=== PATIENT | female | born 1990 | race Hispanic/Latino ===

== ENCOUNTER 2017-05-19 20:28 | Emergency (ER) | payer SELFPAY ==
[2017-05-19 20:59] LABS: Bilirubin Negative (Negative); Blood, Urine Negative (Negative); Glucose, Urine (Dipstick) Negative (Negative); Ketone, Urine Negative (Negative); Nitrite Negative (Negative); Protein, Urine (Dipstick) Negative (Neg-Trace)
[2017-05-19 21:01] LABS: Bacteria/HPF 1+ HPF (None Seen); Hyaline Casts/LPF 0-3 HYALINE CAST LPF (0-3 Hyaline)
[2017-05-19] MEDS ORDERED: Acetaminophen 325 MG TAB ONE (22:23)
--- NOTE | 2017-05-19 23:04 | ULT ---
PELVIC ULTRASOUND: History: Right sided flank pain for three days. Technique: Multiple longitudinal and transverse images of an intrauterine is obtained usin g a multihertz curvilinear transabdominal transducer. FINDINGS: Real-time, color flow, and M-mode sonography demonstrates the uterus to measure 11.5 x 6.5 x 8.4 cm. Gestational sac and pole are seen within the uterine cavity. [place]-rump length measures 1.6 c m. The gestational sac measures 2.4 cm. This overall gives the fetus an estimated gestational age of 7 weeks 5 days with an estimated date of delivery of 12-31-17. Yolk sac is visualized measuring 5 mm. Cardiac activity is confirmed measuring 185 bpm within the pole. Both ovaries are visualized with good blood flow. Right ovary measures 3.0 x 2.5 x 2.9 cm while the left ovary measures 3.5 x 3.1 x 3.2 cm. IMPRESSION: Viable intrauterine . Estimated gestational age is 7 weeks 5 days with an estimated date of delivery of 12-31-17. POS: [facility]
== END 2017-05-19 23:42 | disposition home or self-care (01) ==
LOC: ERS 20:28
DX: O23.41 Unspecified infection of urinary tract in pregnancy, first trimester (principal); O10.911 Unspecified pre-existing hypertension complicating pregnancy, first trimester; Z3A.08 8 weeks gestation of pregnancy
CPT/HCPCS: 76856; 81003; 81015; 81025; 87480; 87491; 87510; 87591; 87660; 93976

== ENCOUNTER 2017-07-02 12:42 | Emergency (ER) | payer SELFPAY ==
[2017-07-02 13:19] LABS: Bilirubin Negative (Negative); Blood, Urine Negative (Negative); Glucose, Urine (Dipstick) Negative (Negative); Ketone, Urine Negative (Negative); Nitrite Negative (Negative); Protein, Urine (Dipstick) Negative (Neg-Trace)
[2017-07-02 13:22] LABS: Bacteria/HPF 1+ HPF (None Seen); Hyaline Casts/LPF 0-3 HYALINE CAST LPF (0-3 Hyaline); RBC/HPF 0-3 HPF (0-3)
--- NOTE | 2017-07-02 14:17 | ULT ---
Obstetrical ultrasound: INDICATION: Suprapubic tenderness and pain on pelvic examination; a 26-year-old female with dysuria for 2 weeks a nd right flank tenderness and vaginal discharge. COMPARISON: Recent pelvic ultrasound dated 05/19/17. FINDINGS: There is a single live intrauterine gestation in vertex presentation. The placenta is anterior in lo cation. MOHAMUD appears adequate. Cardiac activity is noted at 160 b.p.m. The average gestational age by ultrasound is 14 weeks and 5 days with estimated due date of 12/26/17. IMPRESSION: Single live intrauterine gestation. POS: [facility]
[2017-07-02] MEDS ORDERED: cefTRIAXone\\ROCEPHIN 500 MG VIAL ONE (14:44)
[2017-07-02] MEDS ORDERED: Lidocaine 1% PF 5 ML VIAL ONE (14:44)
--- NOTE | 2017-07-02 14:47 | ULT ---
BILATERAL RENAL ULTRASOUND: HISTORY: UTI, right flank pain. FINDINGS: The right kidney measures 12.8 cm in length and the left kidney measures 12.8 cm in length. No focal mass or hydronephrosis is seen on either side. Cortical echogenicity and thickness is normal on eit her side. The urinary bladder is unremarkable. IMPRESSION: Normal exam. POS: [facility]
== END 2017-07-02 15:13 | disposition home or self-care (01) ==
LOC: ERS 12:42
DX: O23.42 Unspecified infection of urinary tract in pregnancy, second trimester (principal); O16.2 Unspecified maternal hypertension, second trimester; Z3A.14 14 weeks gestation of pregnancy
CPT/HCPCS: 76770; 76815; 81003; 81015; 87086; 87491; 87591; 96372; J0696; J2001

== ENCOUNTER 2017-08-10 17:32 | Emergency (ER) | payer SELFPAY ==
[2017-08-10] MEDS ORDERED: Ondansetron HCl/PF 4 MG/2 ML Vial ONE (18:49)
[2017-08-10 19:15] LABS: #Eosinphils 0.2 thou/uL (0.0-0.7); #Lymphocytes 1.1 thou/uL (1.20-3.40); #Monocytes 0.3 thou/uL (0.11-0.59); #Neutrophils 5.5 thou/uL (1.40-6.50); %Basophils 0.2 % (0.0-1.0); %Eosinophils 2.6 % (0.0-10.0); %Lymphocytes 16.1 % (21.0-51.0); %Monocytes 4.1 % (0.0-10.0); %Neutrophils 77.1 % (42.0-75.0); Mean Corpuscular HGB CONC 35.1 g/dL (32.0-36.0); Mean Corpuscular Hemoglobin 32.1 pg (27.0-31.0); Mean Corpuscular Volume 91.4 fl (81.0-99.0); Mean Platelet Volume 7.2 fL (7.4-10.4); Platelet Count 256 thou/uL (130-400); RBC Distribution Width 12.2 % (11.5-14.5); Red Blood Cell (RBC) Count 4.04 mill/uL (4.20-5.40); White Blood Cell (WBC) Count 7.1 thou/uL (4.8-10.8)
[2017-08-10 19:32] LABS: ALT (SGPT) 73 U/L (8-55); AST (SGOT) 70 U/L (5-34); Albumin 3.9 g/dL (3.5-5.0); Alkaline Phosphatase 62 U/L (40-150); Anion Gap 14 mmol/L (10-20); BUN (Urea Nitrogen) 4 mg/dL (7.0-18.7); Bilirubin, Total 0.6 mg/dL (0.2-1.2); Calc. Creatinine Clearance 0 mL/min (70-130); Calcium 9.2 mg/dL (7.8-10.44); Carbon Dioxide 21 mmol/L (22-29); Chloride 103 mmol/L (98-107); Estimated GFR-MDRD Greater than 90; Glucose 79 mg/dL (70-105); Potassium 3.4 mmol/L (3.5-5.1); Protein, Total 6.9 g/dL (6.0-8.3); Sodium 135 mmol/L (136-145)
[2017-08-10] MEDS ORDERED: Potassium Chloride 20 MEQ TAB ONE (19:47)
[2017-08-10 20:35] LABS: Bilirubin Small (Negative); Clarity CLOUDY (Clear); Glucose, Urine (Dipstick) Negative (Negative); Leukocyte Large (Negative); Nitrite Negative (Negative); Protein, Urine (Dipstick) Trace mg/dL (Neg-Trace); Specific Gravity, Urine 1.021 (1.002-1.036)
[2017-08-10 20:36] LABS: Bacteria/HPF 2+ HPF (None Seen); WBC/HPF 21-50 HPF (0-3)
[2017-08-10 20:37] LABS: Pathc Cast-AUWi Flag 5.01 (0-2.49)
[2017-08-10 20:42] LABS: Blood, Urine Negative (Negative)
[2017-08-10 20:45] LABS: RBC/HPF 0-3 HPF (0-3)
[2017-08-10 20:46] LABS: Hyaline Casts/LPF NONE SEEN LPF (0-3 Hyaline)
== END 2017-08-10 22:09 | disposition home or self-care (01) ==
LOC: ERS 17:32
DX: O23.02 Infections of kidney in pregnancy, second trimester (principal); O16.2 Unspecified maternal hypertension, second trimester; Z3A.20 20 weeks gestation of pregnancy
CPT/HCPCS: 80053; 81003; 81015; 85025; 87086; 96361; 96374; 96375; J0696; J2405

== ENCOUNTER 2017-08-18 18:10 | Day surgery (SDC) | payer MEDICAID, SELFPAY, OTHER ==
[2017-08-18 18:35] VITALS: BMI 39.1
[2017-08-18] MEDS ORDERED: Ondansetron HCl/PF 4 MG/2 ML Vial IVP PRN (19:10)
[2017-08-18] MEDS ORDERED: Lactated Ringer's 1,000 ML IV SCH ×2 (19:15)
[2017-08-18 19:37] LABS: #Basophils 0.1 thou/uL (0.0-0.2); #Eosinphils 0.2 thou/uL (0.0-0.7); #Lymphocytes 2.9 thou/uL (1.20-3.40); #Monocytes 0.4 thou/uL (0.11-0.59); #Neutrophils 6.7 thou/uL (1.40-6.50); %Basophils 0.7 % (0.0-1.0); %Monocytes 4.3 % (0.0-10.0); Hemoglobin 12.8 g/dL (12.0-16.0); Mean Corpuscular HGB CONC 34.2 g/dL (32.0-36.0); Mean Corpuscular Hemoglobin 30.6 pg (27.0-31.0); Mean Corpuscular Volume 89.4 fl (81.0-99.0); Mean Platelet Volume 7.9 fL (7.4-10.4); Platelet Count 288 thou/uL (130-400); Red Blood Cell (RBC) Count 4.19 mill/uL (4.20-5.40); White Blood Cell (WBC) Count 10.3 thou/uL (4.8-10.8)
[2017-08-18 19:55] LABS: ALT (SGPT) 52 U/L (8-55); AST (SGOT) 45 U/L (5-34); Albumin 4.1 g/dL (3.5-5.0); Alkaline Phosphatase 66 U/L (40-150); Anion Gap 16 mmol/L (10-20); BUN (Urea Nitrogen) 6 mg/dL (7.0-18.7); Bilirubin, Total 0.3 mg/dL (0.2-1.2); Calc. Creatinine Clearance 261 mL/min (70-130); Calcium 9.3 mg/dL (7.8-10.44); Carbon Dioxide 18 mmol/L (22-29); Chloride 106 mmol/L (98-107); Estimated GFR-MDRD Greater than 90; Globulin 3.1 g/dL (2.4-3.5); Glucose 95 mg/dL (70-105); Potassium 3.6 mmol/L (3.5-5.1); Protein, Total 7.2 g/dL (6.0-8.3); Sodium 136 mmol/L (136-145)
[2017-08-18] MEDS ORDERED: FLU VACC QS2017-18 36 mo. & older 0.5 ML SYRINGE IM ONE (21:00)
--- NOTE | 2017-08-18 21:06 | ULT ---
RIGHT UPPER QUADRANT ULTRASOUND: Date: 08-18-17 Provided Clinical History: Right upper quadrant pain. FINDINGS: The visualized portions of the pancreas appears normal. The liver demonstrates fatty infiltration wit hout evidence for mass or intrahepatic biliary ductal dilatation. The common duct is not dilated. Gal lbladder demonstrates no stones, wall thickening or pericholecystic fluid. Right kidney demonstrates no hydronephrosis or mass. IMPRESSION: 1. No evidence for an acute process. 2. Fatty infiltration of he liver. POS: [facility]
[2017-08-18 21:08] LABS: Bilirubin Negative (Negative); Blood, Urine Negative (Negative); Clarity CLEAR (Clear); Glucose, Urine (Dipstick) Negative (Negative); Leukocyte Negative (Negative); Nitrite Negative (Negative); Protein, Urine (Dipstick) Negative (Neg-Trace); Specific Gravity, Urine 1.012 (1.002-1.036); Urobilinogen 0.2 mg/dL (0.2-1.0)
[2017-08-18 21:09] LABS: Bacteria/HPF None Seen HPF (None Seen); Hyaline Casts/LPF 0-3 HYALINE CAST LPF (0-3 Hyaline); Pathc Cast-AUWi Flag 0.54 (0-2.49); RBC/HPF None Seen HPF (0-3); Squamous Epithelial 0-3 HPF (0-3); WBC/HPF None Seen HPF (0-3)
[2017-08-18 21:22] LABS: Amphetamine Not Detected (NotDetected); Barbiturates Screen Not Detected (NotDetected); Benzodiazepine Screen Not Detected (NotDetected); Cocaine Metabolite Screen Not Detected (NotDetected); Medtox Control Line Valid? VALID (VALID); Medtox Reader # READER 1; Methadone Not Detected (NotDetected); Methamphetamine Not Detected (NotDetected); Opiate Screen Not Detected (NotDetected); Oxycodone Screen Not Detected (NotDetected); Phencyclidine (PCP) Not Detected (NotDetected); THC/Cannabinoid Screen Not Detected (NotDetected); Tricyclic Screen Not Detected (NotDetected)
[2017-08-19 00:25] LABS: Creatinine, Urine 45.89 mg/dL (47-110); Protein, Urine Random Quant Less than 10 mg/dL
--- NOTE | 2017-08-19 06:06 | PRG ---
DATE OF SERVICE: 08/18/2017 TIME OF SERVICE: 2140 hours. PRESENTING COMPLAINT: The patient is a 26-year-old 4, para 3 at 21 weeks gestation, who pres ents complaining of nausea and vomiting for several weeks, worse over the last day with headache and congestion. She denies rupture of membranes, vaginal bleeding, and contractions. 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 History of hypertension in her pregnancies. No history of preeclampsia with early deliveries. PAST MEDICAL HISTORY: Significant for hypertension on medications outside of . PAST SURGICAL HISTORY: Breast I and D. ALLERGIES: Denies. MEDICATIONS: vitamins. SOCIAL HISTORY: Denies tobacco, alcohol, or IV drug use. FAMILY HISTORY: Noncontributory. REVIEW OF SYSTEMS: Noncontributory. PHYSICAL EXAMINATION: GENERAL: Obese female. VITAL SIGNS: Temperature 99.2, respirations 18, blood pressure initially upon presentation was 170/8 6. HEENT: Reveals congestion and injected mucous membranes. LUNGS: Clear to auscultation bilaterally. HEART: Regular rate and rhythm. ABDOMEN: Soft. She had discomfort in the right upper quadrant. No CVA tenderness noted. PELVIC: Deferred. EXTREMITIES: With trace edema. LABORATORY DATA: Laboratory reveals white count of 10.3 with normal diff, hematocrit of 37% with nor mal platelet count of 288. Comprehensive metabolic profile revealed creatinine of 0.5, normal sodium and potassium, her AST was mildly elevated at 45. Review of patient's ER visits over the past sever al years reveals that she has mildly elevated LFTs and almost every visit and these are actually quit e a bit improved over previous visits. Urinalysis revealed 40+ ketones upon presentation, but otherw ise unremarkable with negative protein. Urine drug screen was negative. Influenza swab was negative . Ultrasound performed revealed no evidence of gallbladder sludge, wall thickening or pericholecysti c fluid. There was evidence of fatty infiltration of the liver. FHTs are 140s to 150s and fundal he ight was consistent with estimated gestational age. The patient has had two in-hospital ultrasounds which confirmed an TRAVIS of 12/31/2017 and this was not repeated at this visit. CLINICAL COURSE: The patient received approximately 2 liters of IV fluids LR. She felt much better after receiving that and Zofran. She remained afebrile. Her blood pressure normalized rapidly after being placed into the intravenous fluids and blood pressures range from 110s to 130s systolic over 7 0s-80s diastolic in the rest of her time in the hospital. IMPRESSION: 1. Nausea and vomiting of . Cannot rule out possible gallbladder dyskinesia, but no eviden ce of acute cholecystitis. 2. Chronic fatty liver. 3. No evidence of HELLP syndrome. 4. Mild chronic hypertension in . PLAN: The patient will be discharged home with plani [place]. She is to keep follow up as scheduled a t the Clinic with ER precautions.
== END 2017-08-18 21:55 | disposition home or self-care (01) ==
LOC: L&D/OP 18:10
PROVIDERS: ATTEND Obstetrics & Gynecology
DX: O21.2 Late vomiting of pregnancy (principal); O10.912 Unspecified pre-existing hypertension complicating pregnancy, second trimester; K76.0 Fatty (change of) liver, not elsewhere classified; Z3A.21 21 weeks gestation of pregnancy; Z79.899 Other long term (current) drug therapy
CPT/HCPCS: 51701; 76705; 80053; 80306; 81001; 82570; 84156; 85025; 87804; 96360; 96361; 96375; 99282; J2405

== ENCOUNTER 2017-09-14 20:00 | Day surgery (SDC) | payer SELFPAY ==
[2017-09-14 20:42] VITALS: BMI 38.7
[2017-09-14 21:40] LABS: #Basophils 0.1 thou/uL (0.0-0.2); #Eosinphils 0.1 thou/uL (0.0-0.7); #Lymphocytes 2.3 thou/uL (1.20-3.40); #Monocytes 0.5 thou/uL (0.11-0.59); #Neutrophils 6.3 thou/uL (1.40-6.50); %Basophils 0.7 % (0.0-1.0); %Eosinophils 1.2 % (0.0-10.0); %Lymphocytes 24.9 % (21.0-51.0); %Monocytes 5.6 % (0.0-10.0); %Neutrophils 67.6 % (42.0-75.0); Hemoglobin 11.9 g/dL (12.0-16.0); Mean Corpuscular HGB CONC 35.4 g/dL (32.0-36.0); Mean Corpuscular Volume 90.5 fl (81.0-99.0); Mean Platelet Volume 7.2 fL (7.4-10.4); Platelet Count 278 thou/uL (130-400); RBC Distribution Width 12.1 % (11.5-14.5); Red Blood Cell (RBC) Count 3.71 mill/uL (4.20-5.40); White Blood Cell (WBC) Count 9.4 thou/uL (4.8-10.8)
[2017-09-14 22:04] LABS: ALT (SGPT) 31 U/L (8-55); AST (SGOT) 30 U/L (5-34); Albumin 3.7 g/dL (3.5-5.0); Alkaline Phosphatase 70 U/L (40-150); Anion Gap 12 mmol/L (10-20); BUN (Urea Nitrogen) 7 mg/dL (7.0-18.7); Bilirubin, Total 0.3 mg/dL (0.2-1.2); Calc. Creatinine Clearance 223 mL/min (70-130); Calcium 9.1 mg/dL (7.8-10.44); Carbon Dioxide 22 mmol/L (22-29); Chloride 106 mmol/L (98-107); Estimated GFR-MDRD Greater than 90; Glucose 89 mg/dL (70-105); Potassium 3.5 mmol/L (3.5-5.1); Protein, Total 6.7 g/dL (6.0-8.3); Sodium 136 mmol/L (136-145)
[2017-09-14 22:41] LABS: Protein, Urine Random Quant Less than 10 mg/dL
--- NOTE | 2017-09-14 22:43 | PDOC.LDHP ---
Labor and Delivery H&P HPI: Deloris Beyer is a 26 yo F at 25.1 wks, patient of the [facility], who presents to the L&D today being she has been experiencing numbness, tingling, and subjective swelling in all four extremities. She has continued to have movement, she denies contractions, loss of fluid, or bleeding. She states she has had normal ultrasounds and has had no complications in this . Her previous three pregnancies have all been term delivered via . Current gestational age (weeks): 25 (25.1 wks) Dating criteria: last menstrual period Grav: 4 Para: 3 Current complications: other (chronic hypertension) Abnormal US findings: No Past Medical History: chronic hypertension Current medications: none Previous surgical history: none Social history: tobacco use, alcohol use, drug use - Physical Exam Vital signs reviewed and normal: yes General: NAD, resting Heart: RRR Lungs: nonlabored breathing Abdomen: NTTP Extremeties: normal range of motion FHT: category 1 [place] contractions every: none - OB Labs Additional Labs: unknown labs at this time, unable to obtain [facility] records - Assessment Random complaints of - Plan -: Prescribe Atarax for symptomatic therapy. D/c patient home with close follow up to PN to evaluate systemic complaints. <Danny Sanchez - Last Filed: 09/14/17 22:40> <Mady Terrazas - Last Filed: 09/15/17 07:25> Allergies/Adverse Reactions: Allergies Allergy/AdvReac Type Severity Reaction Status Date / Time No Known Allergies Allergy Verified 09/14/17 20:44 Attending Addendum - Attending Addendum I personally evaluated the patient and discussed the management with Dr. Sanchez and Dr. Schwab I agree with the History, Examination, Assessment and Plan documented above with any addition or exceptions noted below. cHTN with normal range BP in traige. monitoring appropriate for gestational age. Asymptomatic. Labs WNL. Follow up with PN for other nonacute complaints. Likely related to habitus and progesterone in . ABrayMD <Mady Terrazas - Last Filed: 09/15/17 07:25>
[2017-09-14] MEDS ORDERED: hydrOXYzine 25 MG TAB PO PRN (22:47)
== END 2017-09-14 22:46 | disposition home or self-care (01) ==
LOC: L&D/OP 20:00
PROVIDERS: ATTEND Student in an Organized Health Care Education/Training Program
DX: O10.012 Pre-existing essential hypertension complicating pregnancy, second trimester (principal); Z3A.25 25 weeks gestation of pregnancy; O99.89 Other specified diseases and conditions complicating pregnancy, childbirth and the puerperium
CPT/HCPCS: 36415; 80053; 82570; 84156; 84550; 85025; 99283

== ENCOUNTER 2017-10-02 10:17 | Inpatient (IN) | payer SELFPAY ==
[2017-10-02 11:13] LABS: Bilirubin Negative (Negative); Blood, Urine Small (Negative); Glucose, Urine (Dipstick) Negative (Negative); Leukocyte Small (Negative); Nitrite Positive (Negative); Protein, Urine (Dipstick) Negative (Neg-Trace); Urobilinogen 0.2 mg/dL (0.2-1.0)
[2017-10-02 11:14] LABS: Clarity Hazy (Clear)
[2017-10-02 11:15] LABS: Pregnancy Test - Urine (BHCG) POSITIVE (Negative); Pregu Control Background? CLEAR/WHITE (CLR/WHITE); Pregu Control Bar Appear? YES (CONTROL BAR); Specific Gravity 1.026 (1.002-1.036); Specific Gravity, Urine 1.026 (1.002-1.036)
[2017-10-02 11:21] LABS: Bacteria/HPF 3+ HPF (None Seen); WBC/HPF 21-50 HPF (0-3)
[2017-10-02 11:22] LABS: Hyaline Casts/LPF 0-3 HYALINE CAST LPF (0-3 Hyaline)
[2017-10-02] MEDS ORDERED: Ondansetron HCl/PF 4 MG/2 ML Vial ONE (11:29)
--- NOTE | 2017-10-02 12:07 | PDOC.EVN ---
Event Note - Event Note Event Note: 10/02/17 ; called by ED just now for this patient. She is a G4 26 yo at "7 mos" who sees the clinic and here for suspected UTI. ER MD states urine with bacteruria...and IV rocephin pending use. CBC and CMP are pending. OB sono pending. I have requested she come to the L&D triage area per our protocol and we will continue the assessment.
[2017-10-02 12:09] LABS: #Basophils 0.1 thou/uL (0.0-0.2); #Eosinphils 0.1 thou/uL (0.0-0.7); #Monocytes 0.4 thou/uL (0.11-0.59); #Neutrophils 6.6 thou/uL (1.40-6.50); %Basophils 1.1 % (0.0-1.0); %Eosinophils 1.3 % (0.0-10.0); %Lymphocytes 21.8 % (21.0-51.0); %Monocytes 4.1 % (0.0-10.0); %Neutrophils 71.8 % (42.0-75.0); Hemoglobin 11.9 g/dL (12.0-16.0); Mean Corpuscular HGB CONC 34.6 g/dL (32.0-36.0); Mean Corpuscular Hemoglobin 31.4 pg (27.0-31.0); Mean Platelet Volume 7.3 fL (7.4-10.4); Platelet Count 292 thou/uL (130-400); Red Blood Cell (RBC) Count 3.78 mill/uL (4.20-5.40); White Blood Cell (WBC) Count 9.2 thou/uL (4.8-10.8)
[2017-10-02 12:35] LABS: ALT (SGPT) 40 U/L (8-55); AST (SGOT) 43 U/L (5-34); Albumin 3.9 g/dL (3.5-5.0); Alkaline Phosphatase 80 U/L (40-150); Anion Gap 11 mmol/L (10-20); BUN (Urea Nitrogen) 6 mg/dL (7.0-18.7); Bilirubin, Total 0.4 mg/dL (0.2-1.2); Calc. Creatinine Clearance 0 mL/min (70-130); Carbon Dioxide 21 mmol/L (22-29); Chloride 106 mmol/L (98-107); Estimated GFR-MDRD Greater than 90; Globulin 2.9 g/dL (2.4-3.5); Glucose 110 mg/dL (70-105); Potassium 3.7 mmol/L (3.5-5.1); Protein, Total 6.8 g/dL (6.0-8.3); Sodium 134 mmol/L (136-145)
--- NOTE | 2017-10-02 13:18 | ULT ---
LIMITED OB ULTRASOUND: Date: 10/02/17 HISTORY: Dysuria, back pain, vomiting. UTI. FINDINGS: A single, live intrauterine gestation is seen, with a heart rate of 150 beats/minute. MOHAMUD measu res 10.8 cm. Placenta is to the right, without evidence of placenta previa. Cervical length measures 3.2 cm. IMPRESSION: Single live intrauterine gestation as above. POS: [facility]
--- NOTE | 2017-10-02 14:06 | PDOC.EVN ---
Event Note - Event Note Event Note: Patient just arrived to L&D
--- NOTE | 2017-10-02 14:46 | PDOC.LDHP ---
Labor and Delivery H&P Chief complaint: other (Nausea, abdominal pain, and dysuria) HPI: Patient is a 26yo at around 27wks (no records available) presents to ED with nausea/vomiting, abdominal pain, and dysuria x3 days. Patient reports episodes of vomiting yesterday, none today. Has been able to eat and drink normally. Pain is in suprapubic and R flank pain, constant in nature. Denies fever, diarrhea, SOB, cough, decreased movement, LOF, vaginal bleeding. Current gestational age (weeks): 27 (5 days) Due date: 12/27/17 Grav: 4 Para: 3 OB History Details: 3 term , gestational HTN with first two and chronic HTN with third. Current complications: hypertension Past Medical History: Chronic HTN Previous surgical history: other (L breast surgery for mastitis) Allergies/Adverse Reactions: Allergies Allergy/AdvReac Type Severity Reaction Status Date / Time No Known Allergies Allergy Verified 10/02/17 14:25 Social history: none - Physical Exam Vital signs reviewed and normal: yes General: NAD Heart: RRR Lungs: CTAB Abdomen: other (TTP along superficial pannus (with no erythema or skin breakdown ) and with deep palpation in suprapubic and RUQ, + CVA tenderness on the R) Extremeties: trace edema FHT: category 1 (reactive strip) [place] contractions every: none - Assessment 26yo at 27.5w presents with N/V, abdominal pain, and flank pain consistent with likely Pyelonephritis. - Plan Plan: admit to L&D -: 1. Pyelonephritis - Admit to instrument engineer - Continue IV Rocephin, add PO Macrobid for double gram- coverage - Urine and Blood cultures pending - Afebrile, continue to monitor VS, Tylenol for fever - Tylenol and [place] for pain control - R renal u/s 2. RUQ Pain - RUQ u/s - AST slightly elevated - Repeat CMP tomorrow 3. Multigravida in 2T - NST reactive - no labor signs/sx
[2017-10-02] MEDS ORDERED: Acetaminophen 500 MG TAB PO SCH (15:00)
[2017-10-02] MEDS ORDERED: Promethazine HCl 25 MG/ML VIAL IM PRN (15:00)
[2017-10-02] MEDS ORDERED: Lactated Ringer's 1,000 ML IV SCH (15:00)
[2017-10-02] MEDS ORDERED: Docusate 100 MG CAP PO PRN (15:00)
[2017-10-02] MEDS ORDERED: Ondansetron ODT 4 MG TAB PO PRN (15:00)
[2017-10-02] MEDS ORDERED: Ondansetron HCl/PF 4 MG/2 ML Vial IVP PRN (15:00)
--- NOTE | 2017-10-02 15:03 | PDOC.EVN ---
Event Note - Event Note Event Note: FACULTY HISTORY AND PHYSICAL Patient seen and examined at bedside with Usha Judd. Patient presents as a patient from the [facility] with c/o dysuria and some nausea. No contractions. She has a possible HX of CHTN and completed a 24 hour urine at [facility]..results pending. Please see full H&P per Resident note. This is my faculty attestation. Past histories reviewed. Vitals seen: afebrile, normotensive. Physical: Rt CVAT no VB Cervix deferred Cat 1 strip, no contractions Assessment and plan: Suspected right pyelo by UA (clean catch) and history and exam. Rocephin IV ordered as well as po macrobid. Order sono rt renal and consider RUQ sono for nausea, although that may be explained by pyelo DX. Get record. Urine culture pending.
[2017-10-02] MEDS ORDERED: HYDROcodone/Acetaminophen 5/325 mg Tablet PO PRN (15:06)
[2017-10-02] MEDS: HYDROcodone/Acetaminophen 5/325 mg Tablet PO PRN ×2 (15:24→21:52)
--- NOTE | 2017-10-02 16:49 | ULT ---
SONOGRAM RIGHT UPPER QUADRANT 10/02/17 HISTORY: Right upper quadrant pain. FINDINGS: Gallbladder is incompletely distended. No stones are apparent. Common duct is 0.3 cm. Liver is diffus krishna echogenic without focal mass or intrahepatic biliary dilatation. No free fluid. IMPRESSION: 1. No evidence of gallstones or biliary obstruction. 2. Hepatic steatosis. POS: [facility]
[2017-10-02 19:06] VITALS: BMI 39.3
[2017-10-02 20:34] VITALS: BP 106/54; TEMP 98.9
[2017-10-02] MEDS ORDERED: Nitrofurantoin Monohyd/M-Cryst 100 MG CAP PO SCH (21:00)
[2017-10-02] MEDS ORDERED: cefTRIAXone\\ROCEPHIN 1 GM in Sodium Chloride 0.9% 100 ML IVPB SCH (21:00)
--- NOTE | 2017-10-02 22:35 | PDOC.EVN ---
Event Note - Event Note Event Note: FACULTY Discharge note: Late entry as patient was discharged when I was in the operating room wit a CS. 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 The need for IV antibiotics was addressed for her. She was going to sign out AMA but I allowed regular discharge with the understanding that she would take her oral antibiotics at home. Dr Nevarez has dictated her discharge note. Afebrile and no evidence of PTL at this point. Patient was seen prior to release home. Diagnosis: OB pyelonephritis Early discharge home at patient request (or she was going to leave AMA).
--- NOTE | 2017-10-03 02:20 | DIS-2 ---
DATE OF ADMISSION: 10/02/2017 DATE OF DISCHARGE: 10/02/2017. RESIDENT: Feng Nevarez DO ADMITTING ATTENDING: Dandre Christie MD DISCHARGE ATTENDING: Dandre Christie MD CONSULTATIONS: None. PROCEDURES: ultrasound, which found a viable intrauterine , heart rate of 150 beats p er minute, MOHAMUD of 10.8, no evidence of placenta previa, cervical length of 3.2. Abdominal ultrasound right upper quadrant found no evidence of gallstones, biliary obstruction, also found hepatic steato sis. monitoring showed a category 1 strip. ADMITTING DIAGNOSES: Pyelonephritis, multigravida, second trimester. DISCHARGE DIAGNOSES: Pyelonephritis, multigravida, in second trimester. DISCHARGE MEDICATIONS: Macrobid 100 mg p.o. b.i.d. x10 days, cefdinir 300 mg p.o. b.i.d. Tums 10 day s, vitamin taken daily, hydroxyzine 25 mg p.o. q.6 hours p.r.n. HISTORY OF PRESENT ILLNESS: This is a 26-year-old, G4, P3 at approximately 27 weeks' gestation based on history. records were not immediately available at the time of admission. The patient originally presented to the emergency room with nausea, vomiting, and abdominal pain with dysuria for approximately 3 days. HOSPITAL COURSE: There were multiple episodes of vomiting the day prior to admission; however, none on the day of admission and the patient had been taking fluids p.o. without problem. Upon admission, a CBC found white count of 9.2, hemoglobin of 11.9. There were no significant abnormalities on the CMP and her UA found small blood, positive nitrites, small leukocyte esterase, white count 21 to 50, squamous cell 11 to 20, and urine bacteria 3+. The patient was diagnosed with pyelonephritis, given a dose of Rocephin IV, and was admitted for observation. Initially, the patient was monitored on L&D . monitoring revealed a reactive strip with a heart rate in the normal range without any concerning decelerations over the patterns. As above, ultrasound was reassuring. The patient also reported right upper quadrant tenderness and pain, and so an ultrasound was conducted that was not concerning for a biliary etiology to the pain. After a period of time of observation on L&D that found reassuring monitoring, the patient was moved to . After moving to her postpar sari room, the patient began to have concerns about how one of her children would be cared for during the day tomorrow and overnight tonight, as there was no alternate care. The patient was informed lou t it is against hospital policy to allow unsupervised children to stay with the patient. The patient threatened to leave AMA if she was unable to have her 3-year-old stay in the room with her. After a long period of discussion about the risks and benefits of remaining in the hospital and the potentia l complications associated with her diagnosis of pyelonephritis, the patient was still adamant that s he would leave if the child was unable to stay with her. A call was placed to the maintenance worker house trailer f or any additional options. The hospital policy was reiterated that there is no way that the child co uld stay with the patient. After more discussion of her options, it was decided that we would change her from Rocephin to Omnicef p.o. and allow her to discharge tonight with the agreement that she wou ld follow up on Friday at Clinic. She was given specific instructions to return to the [facility] room if she had increasing nausea or vomiting, significant fever, or significant flank pain on either side. The patient agreed and understood both the signs and symptoms of worsening in her condi tion and understood the risks associated with leaving at this point in her disease course. DISPOSITION: Stable. DISCHARGE INSTRUCTIONS: 1. Location: Home. 2. Diet: Regular. 3. Activity: Ad darshan. 4. Follow up with Clinic in 3 days.
[2017-10-03] MEDS ORDERED: Aspirin 81 mg Enteric Coated Tablet PO SCH (09:00)
[2017-10-03] MEDS ORDERED: Prenatal Vitamin 1 TAB PO SCH (09:00)
[2017-10-03] MEDS ORDERED: Cefdinir 300 MG CAP PO SCH (09:00)
[2017-10-05 20:18] LABS: Chlamydia by PCR Not Detected (NotDetected); GC by PCR Not Detected (NotDetected)
== END 2017-10-02 22:14 | disposition home or self-care (01) | DRG 781 ==
LOC: ERS 10:17 → L&D/OP 13:23 → 3SW 15:00
PROVIDERS: ADMIT Family Medicine; ATTEND Family Medicine
DX: O23.02 Infections of kidney in pregnancy, second trimester (principal); O10.012 Pre-existing essential hypertension complicating pregnancy, second trimester; Z3A.27 27 weeks gestation of pregnancy
CPT/HCPCS: 36415; 76705; 76815; 80053; 81003; 81015; 81025; 83605; 85025; 87040; 87077; 87086; 87186; 87480; 87491; 87510; 87591; 87660; 96365; 96375; 99285; J0696; J2405

== ENCOUNTER 2017-11-10 15:41 | Day surgery (SDC) | payer MEDICAID, SELFPAY ==
[2017-11-10 16:38] VITALS: BMI 39.6
[2017-11-10] MEDS ORDERED: Lactated Ringer's 1,000 ML IV SCH ×2 (17:30)
[2017-11-10 17:45] LABS: #Basophils 0.1 thou/uL (0.0-0.2); #Eosinphils 0.1 thou/uL (0.0-0.7); #Lymphocytes 2.6 thou/uL (1.20-3.40); #Monocytes 0.4 thou/uL (0.11-0.59); #Neutrophils 6.8 thou/uL (1.40-6.50); %Basophils 1.1 % (0.0-1.0); %Eosinophils 0.9 % (0.0-10.0); %Monocytes 3.7 % (0.0-10.0); %Neutrophils 68.4 % (42.0-75.0); Hemoglobin 13.2 g/dL (12.0-16.0); Mean Corpuscular HGB CONC 34.5 g/dL (32.0-36.0); Mean Corpuscular Volume 89.7 fl (81.0-99.0); Mean Platelet Volume 8.7 fL (7.4-10.4); Platelet Count 262 thou/uL (130-400); RBC Distribution Width 11.9 % (11.5-14.5); Red Blood Cell (RBC) Count 4.25 mill/uL (4.20-5.40); White Blood Cell (WBC) Count 9.9 thou/uL (4.8-10.8)
[2017-11-10 18:07] LABS: ALT (SGPT) 35 U/L (8-55); AST (SGOT) 34 U/L (5-34); Albumin 3.8 g/dL (3.5-5.0); Alkaline Phosphatase 141 U/L (40-150); Anion Gap 14 mmol/L (10-20); BUN (Urea Nitrogen) 8 mg/dL (7.0-18.7); Bilirubin, Total 0.3 mg/dL (0.2-1.2); Calc. Creatinine Clearance 250 mL/min (70-130); Calcium 8.8 mg/dL (7.8-10.44); Carbon Dioxide 19 mmol/L (22-29); Chloride 108 mmol/L (98-107); Estimated GFR-MDRD Greater than 90; Globulin 2.7 g/dL (2.4-3.5); Glucose 81 mg/dL (70-105); Protein, Total 6.5 g/dL (6.0-8.3); Sodium 137 mmol/L (136-145)
[2017-11-10 18:20] LABS: Bilirubin Negative (Negative); Blood, Urine Moderate (Negative); Clarity CLEAR (Clear); Glucose, Urine (Dipstick) Negative (Negative); Leukocyte Negative (Negative); Nitrite Negative (Negative); Protein, Urine (Dipstick) Negative (Neg-Trace); Specific Gravity, Urine 1.015 (1.002-1.036); Urobilinogen 0.2 mg/dL (0.2-1.0)
[2017-11-10 18:23] LABS: Bacteria/HPF None Seen HPF (None Seen); Hyaline Casts/LPF 0-3 HYALINE CAST LPF (0-3 Hyaline); Pathc Cast-AUWi Flag 0.43 (0-2.49); Squamous Epithelial 0-3 HPF (0-3); WBC/HPF 0-3 HPF (0-3)
[2017-11-10 18:32] LABS: Amphetamine Not Detected (NotDetected); Barbiturates Screen Not Detected (NotDetected); Benzodiazepine Screen Not Detected (NotDetected); Cocaine Metabolite Screen Not Detected (NotDetected); Medtox Control Line Valid? VALID (VALID); Medtox Reader # READER 1; Methadone Not Detected (NotDetected); Methamphetamine Not Detected (NotDetected); Opiate Screen Not Detected (NotDetected); Oxycodone Screen Not Detected (NotDetected); Phencyclidine (PCP) Not Detected (NotDetected); THC/Cannabinoid Screen Not Detected (NotDetected); Tricyclic Screen Not Detected (NotDetected)
== END 2017-11-10 18:14 | disposition home or self-care (01) ==
LOC: L&D/OP 15:41
PROVIDERS: ATTEND Obstetrics & Gynecology
DX: O99.89 Other specified diseases and conditions complicating pregnancy, childbirth and the puerperium (principal); R42 Dizziness and giddiness; R51 Headache; R11.10 Vomiting, unspecified; Z3A.00 Weeks of gestation of pregnancy not specified
CPT/HCPCS: 51701; 80053; 80306; 81001; 85025; 87086; 96360; 99283; A4353

== ENCOUNTER 2017-11-17 21:05 | Inpatient (IN) | payer MEDICAID, SELFPAY ==
[2017-11-17 21:36] VITALS: BMI 38.5
--- NOTE | 2017-11-17 22:09 | PDOC.LDHP ---
Labor and Delivery H&P Chief complaint: other HPI: 27 yo @ 34.2wk by LMP c/w 10.5w US. She states since yesterday morning at 0300 she began vomiting and having a headache. She also notes elevated BPs at that time. She states that she has had some associated blurry vision during this time as well. She states that she came in approximately 2 weeks ago for very similar symptoms. She has not had fevers, chills, or cough. She denies dysuria symptoms. She states that she has been making her PNC appointments and has had no abnormalities during this . She admits to movement. She denies vaginal bleeding or discharge. No other complaints today. Current gestational age (weeks): 34 (34.2) Dating criteria: last menstrual period Grav: 4 Para: 3 OB History Details: 3 prior vaginal deliveries Previous Child born with cleft lip and heart defects Abnormal US findings: No Current medications: pre- vitamins, other (Aspirin) Social history: none - Physical Exam Abnormal vital signs: BP as high as 160s/100s General: NAD, resting Heart: RRR Lungs: CTAB Abdomen: NTTP Extremeties: no edema FHT: category 1 [place] contractions every: None - OB Labs Blood type: B RH: positive Antibody Screen: negative HIV: negative RPR: negative HEPSAg: negative 1 hour GCT: positive 3 hour GTT: positive GBS: unknown Urine drug screen: not done Rubella: immune - Assessment 1. Gestational HTN rule out Pre-Eclampsia - Serial BP monitoring - Urine Protein/Creatinine Ratio - Will collect for 24 hour urine studies - Continue Aspirin 2. Gestational DM - Diet controlled - Accuchecks 3. IUP - Will get GBS swab as status unknown - External monitoring Disposition: Stable, Will admit to OB floor for further evaluation. - Plan Plan: admit to L&D <Seth Bosch - Last Filed: 11/17/17 22:25> - Plan -: plan of care reviewed. will admin betamethesone. failed outpatient managment of gest htn/preeclampsia. will get sono today to ro iugr or oligo. DDAWSON <John Ware - Last Filed: 11/18/17 06:19> Allergies/Adverse Reactions: Allergies Allergy/AdvReac Type Severity Reaction Status Date / Time No Known Allergies Allergy Verified 11/10/17 16:24
[2017-11-17] MEDS ORDERED: Acetaminophen 500 MG TAB PO PRN (22:39)
[2017-11-17] MEDS ORDERED: Ondansetron HCl/PF 4 MG/2 ML Vial IVP PRN (22:39)
[2017-11-17] MEDS ORDERED: Promethazine HCl 25 MG/ML VIAL IM PRN (22:39)
[2017-11-17 23:27] LABS: Bilirubin Small (Negative); Blood, Urine Negative (Negative); Clarity CLOUDY (Clear); Glucose, Urine (Dipstick) Negative (Negative); Leukocyte Small (Negative); Nitrite Negative (Negative); Protein, Urine (Dipstick) 300 mg/dL (Neg-Trace); Specific Gravity, Urine 1.034 (1.002-1.036)
[2017-11-17 23:29] LABS: Bacteria/HPF 2+ HPF (None Seen)
[2017-11-17 23:36] LABS: Pathc Cast-AUWi Flag 4.21 (0-2.49)
[2017-11-17 23:43] LABS: Hyaline Casts/LPF 0-3 HYALINE CAST LPF (0-3 Hyaline); Other Casts/LPF None Seen LPF (0-3 Hyaline); Oval Fat Bodies/HPF None Seen HPF (None Seen); RBC/HPF 0-3 HPF (0-3); Renal Epithelial 0-3 HPF (0-3); Sperm/HPF None Seen HPF (None Seen); Transitional Epithelial 0-3 HPF (0-3); Trichomonas/HPF None Seen HPF (None Seen); Yeast-All Forms None Seen HPF (None Seen)
[2017-11-17] MEDS: Lactated Ringer's 1,000 ML IV SCH (23:46)
[2017-11-17 23:51] LABS: Creatinine, Urine 303.2 mg/dL (47-110)
[2017-11-18] MEDS: Ondansetron ODT 4 MG TAB PO PRN (00:12)
[2017-11-18 00:27] LABS: ALT (SGPT) 37 U/L (8-55); AST (SGOT) 44 U/L (5-34); Albumin 3.5 g/dL (3.5-5.0); Alkaline Phosphatase 148 U/L (40-150); Anion Gap 13 mmol/L (10-20); BUN (Urea Nitrogen) 8 mg/dL (7.0-18.7); Bilirubin, Total 0.3 mg/dL (0.2-1.2); Calc. Creatinine Clearance 232 mL/min (70-130); Calcium 8.9 mg/dL (7.8-10.44); Carbon Dioxide 21 mmol/L (22-29); Chloride 107 mmol/L (98-107); Estimated GFR-MDRD Greater than 90; Globulin 3.1 g/dL (2.4-3.5); Glucose 90 mg/dL (70-105); Potassium 3.2 mmol/L (3.5-5.1); Protein, Total 6.6 g/dL (6.0-8.3); Sodium 138 mmol/L (136-145)
[2017-11-18] MEDS: Betamet Acet/Betamet Na Ph 30 MG/5 ML VIAL IM SCH (03:24)
[2017-11-18] MEDS ORDERED: Acetaminophen 500 MG TAB PO PRN (07:59)
[2017-11-18] MEDS ORDERED: HumaLOG 300 UNITS/3 ML VIAL SC PRN (08:29)
[2017-11-18] MEDS ORDERED: Dextrose 50% Abboject 50 ML SYRINGE SLOW IVP PRN (08:29)
[2017-11-18] MEDS ORDERED: Dextrose 5% in Water 1,000 ML IV PRN (08:29)
[2017-11-18] MEDS: Lactated Ringer's 1,000 ML IV SCH ×2 (09:16→16:48)
[2017-11-18] MEDS: diphenhydrAMINE 50 MG/ML VIAL IVP SCH ×2 (09:19→11:41)
[2017-11-18] MEDS: Metoclopramide HCl 10 MG/2 ML VIAL IVP PRN ×2 (09:21→09:55)
--- NOTE | 2017-11-18 09:58 | PDOC.LDPN ---
Labor & Delivery Progress Note - Subjective Subjective: comfortable - Objective Vital signs reviewed and normal: yes General: NAD, resting Uterine fundus: non tender FHT: category 1 (HR 130), variability present, absent or minimal variables [place] contractions every: few - Assessment (1) Migraine Code(s): G43.909 - MIGRAINE, UNSP, NOT INTRACTABLE, WITHOUT STATUS MIGRAINOSUS Current Visit: Yes Status: Acute Comment: Pt has chronic headaches that are similar to current headaches. While pre eclampsia is in the differential, will treat as migraine and continue to monitor. (2) gestational hypertension Current Visit: No Status: Active Comment: Pressures have been controlled since admission. Pt denies abd pain and headache is consistent with chronic headaches. LFT and CBC are normal, though urine protein/cr is elevated. Will continue 24 hour protein and reevaluate at that time. <Feng Nevarez - Last Filed: 11/18/17 10:08> Attending Addendum - Attending Addendum Date/Time: 11/19/17 [id number] I personally evaluated the patient and discussed the management with Dr. Murguia I agree with the History, Examination, Assessment and Plan documented above with any addition or exceptions noted below. Pt vital signs all wnl except first few hours form admission. head ache with light sensativity and nausea resolved with reglan and benadryl. Dx of CHTN with proteinuria. Will look for Baseline labs if performed. s/p bmtz #1 Will start on procardia as pt is expected to have rising bp. <Samir Nielsen - Last Filed: 11/19/17 06:58>
--- NOTE | 2017-11-18 11:48 | PRG ---
DATE OF SERVICE: 11/18/2017 HISTORY OF PRESENT ILLNESS: The patient is a 27-year-old multiparous female at 34 weeks gestation, w ho was admitted last night for elevated blood pressures in the setting of chronic hypertension, ameya p has been significant for proteinuria; however, the patient has not required any blood pressure medi cations during her stay thus far. After settling down, blood pressures spontaneously have resolved a nd have been in the normal range since shortly after admission until the present time. However, on a rrival, the patient did have blood pressures ranging in the mild range and occasional severe pressure s, all within an hour or two of each other. There was a BPP 8/8, this morning with normal appropriat e gestational size for age and normal fluid, tracing at the monitoring has been category 1. Bl ood pressure is currently 131/63, heart rate of 75, respiratory rate of 18, and temperature 97.9. In general, she appears to be in no acute distress. She did have a headache on initial exam today that was more consistent with migraine as the patient does have a history of what sounds like migraines d uring part of this . After treatment with Reglan and Benadryl, the headaches have resolved completely. Given the patient's stable status, the patient will be transferred to the [facility] or for continued monitoring during this 24-hour urine collection. I am going ahead and start the pat ient on Procardia 30 mg XL daily as the patient is chronic hypertension and blood pressures were only rise these last few weeks of . A 24-urine will be up tonight. We will repeat lab work abo ut that time.
[2017-11-18] MEDS: NIFEdipine XL 30 MG TAB PO SCH (11:57)
--- NOTE | 2017-11-18 12:43 | ULT ---
LIMITED OB ULTRASOUND: BIOPHYSICAL PROFILE: HISTORY: growth biometry. COMPARISON: Limited OB ultrasound from 10/02/2017. FINDINGS: Biophysical profile score is 8.8. Single viable intrauterine with an average ultrasound age of 35 weeks 1 day. Estimated julian e of delivery 12/22/2017. Estimated weight 5 pounds 10 oz (44th percentile). Biparietal diameter 8.96 cm (36 weeks 2 days, 85th percentile). Head circumference 31.82 cm (35 weeks 6 days, 35th percentile). Abdominal circumference 30.5 cm (34 weeks 3 days, 40th percentile). Amniotic fluid index 12.2 cm. heart rate 140 beats per minute. position is vertex. IMPRESSION: 1. Live intrauterine with a biophysical profile score of 8/8. 2. Amniotic fluid index 12.2 cm. 3. Estimated weight 2546 g (44th percentile). POS: [facility]
[2017-11-18 22:18] LABS: Collection Duration 24 hrs; Urine Total Volume 1000 mL (600-1600)
[2017-11-18 23:10] LABS: 24 Hr Creatinine 1581.2 mg/24 hr (710-1650); Creatinine, Urine 158.12 mg/dL (47-110)
[2017-11-18 23:11] LABS: Protein - 24 Hr 780 mg/24 hr (Less than 300); Protein, Urine 78 mg/dL (1-14)
[2017-11-19] MEDS: Lactated Ringer's 1,000 ML IV SCH ×4 (01:46→18:00)
[2017-11-19] MEDS: Betamet Acet/Betamet Na Ph 30 MG/5 ML VIAL IM SCH (01:47)
[2017-11-19 06:50] LABS: #Lymphocytes 1.7 thou/uL (1.20-3.40); #Monocytes 0.1 thou/uL (0.11-0.59); #Neutrophils 9.5 thou/uL (1.40-6.50); %Basophils 0.2 % (0.0-1.0); %Eosinophils 0.3 % (0.0-10.0); %Lymphocytes 14.5 % (21.0-51.0); %Monocytes 1.2 % (0.0-10.0); %Neutrophils 83.7 % (42.0-75.0); Hemoglobin 11.1 g/dL (12.0-16.0); Mean Corpuscular HGB CONC 35.7 g/dL (32.0-36.0); Mean Corpuscular Hemoglobin 31.9 pg (27.0-31.0); Mean Corpuscular Volume 89.3 fl (81.0-99.0); Mean Platelet Volume 8.9 fL (7.4-10.4); Platelet Count 214 thou/uL (130-400); RBC Distribution Width 12.2 % (11.5-14.5); Red Blood Cell (RBC) Count 3.49 mill/uL (4.20-5.40); White Blood Cell (WBC) Count 11.4 thou/uL (4.8-10.8)
[2017-11-19 07:07] LABS: ALT (SGPT) 44 U/L (8-55); AST (SGOT) 45 U/L (5-34); Albumin 3.2 g/dL (3.5-5.0); Alkaline Phosphatase 141 U/L (40-150); Anion Gap 12 mmol/L (10-20); BUN (Urea Nitrogen) 8 mg/dL (7.0-18.7); Bilirubin, Total 0.2 mg/dL (0.2-1.2); Calc. Creatinine Clearance 209 mL/min (70-130); Calcium 8.3 mg/dL (7.8-10.44); Carbon Dioxide 20 mmol/L (22-29); Chloride 107 mmol/L (98-107); Estimated GFR-MDRD Greater than 90; Globulin 2.8 g/dL (2.4-3.5); Glucose 172 mg/dL (70-105); Potassium 3.9 mmol/L (3.5-5.1); Sodium 135 mmol/L (136-145)
--- NOTE | 2017-11-19 08:01 | PRG ---
DATE OF SERVICE: 11/19/2017 HISTORY OF PRESENT ILLNESS: The patient is a 27-year-old female admitted to the hospital with chroni c hypertension to be evaluated for superimposed preeclampsia. The patient during her admission was n oted to have proteinuria with a protein creatinine ratio 0.6 and after initial elevations in her bloo d pressure, her blood pressures have remained normal. She was started on Procardia 30 mg XL shortly on the morning after admission. The patient's 24 hour urine is now back and is 780 mg. The patient' s headache that she initially presented with, resolved with a migraine treatment as the patient has h istory of headaches with this . This morning. She denies any headaches. She feels rested. No shortness of breath, right upper quad rant tenderness. PHYSICAL EXAMINATION: VITAL SIGNS: This morning, blood pressure is 144/74, temperature 97.9, pulse of 69, respiratory rate of 18. GENERAL: She appears to be in no acute distress. She is alert and oriented, cooperative and pleasan t to interact with. HEENT: Normocephalic, atraumatic. LUNGS: Clear to auscultation bilaterally. HEART: Regular rate and rhythm. ABDOMEN: Soft. LABORATORY: Laboratory this morning; the patient has a blood sugar of 172 fasting. Her AST is 45, ALT is 44. Sodium is 135, potassium 3.9, creatinine 0.61. Hemoglobin is 11.1, hematocrit 31.2, plat elets of 214,000. BPP is 8/8 with normal appropriate growth consistent with 35-week gestation. ASSESSMENT AND PLAN: The patient is a 27-year-old female with chronic hypertension and likely superi mposed preeclampsia controlled now on Procardia. She has no abnormalities in her labs apart from pro teinuria. The fetus is reassuring with a 8/8 BPP and normal growth. We will continue inpatient monitoring at t his time for the next day or two to look for any worsening signs of preeclampsia. She is status post steroids as of this morning at 1 o'clock.
[2017-11-19] MEDS: metFORMIN 500 MG TAB PO SCH ×2 (08:24→16:13)
[2017-11-19] MEDS: NIFEdipine XL 30 MG TAB PO SCH (08:24)
--- NOTE | 2017-11-19 10:09 | PDOC.LDPN ---
Labor & Delivery Progress Note - Subjective Subjective: comfortable, other (headaches have resolved, no new complaints. Denies chagnes in vision or abdominal pain) - Objective Abnormal vital signs: Periodic elevated BP, none in sever range. General: NAD, resting Uterine fundus: non tender - Assessment (1) Preeclampsia Code(s): O14.90 - UNSPECIFIED PRE-ECLAMPSIA, UNSPECIFIED TRIMESTER Current Visit: Yes Status: Acute Comment: Pressures have been controlled since admission. LFT and CBC are normal. 24 hour urine protein 780. Pt has been started on procardia with good response. Will continue meds and obs for 72 hours. 2nd dose of betamethasone in today. (2) Migraine Code(s): G43.909 - MIGRAINE, UNSP, NOT INTRACTABLE, WITHOUT STATUS MIGRAINOSUS Current Visit: Yes Status: Acute Comment: Headaches resolved (3) Gestational diabetes Code(s): O24.419 - GESTATIONAL DIABETES MELLITUS IN , UNSP CONTROL Current Visit: Yes Status: Chronic QualifierTitle: Gestational diabetes mellitus control: diet-controlled Comment: Diet controlled. Low carb diet. Metformin has been started <Feng Nevarez - Last Filed: 11/19/17 10:07> - Assessment (1) Preeclampsia Code(s): O14.90 - UNSPECIFIED PRE-ECLAMPSIA, UNSPECIFIED TRIMESTER Current Visit: Yes Status: Acute Comment: Pressures have been controlled since admission. LFT and CBC are normal. 24 hour urine protein 780. Pt has been started on procardia with good response. Will continue meds and obs for 72 hours. 2nd dose of betamethasone in today. (2) Gestational diabetes Code(s): O24.419 - GESTATIONAL DIABETES MELLITUS IN , UNSP CONTROL Current Visit: Yes Status: Chronic Qualifiers: Gestational diabetes mellitus control: diet-controlled Comment: Diet controlled. Low carb diet. Metformin has been started Plan: other (Faculty: Aware of case and presenting problem. case discussed with Dr Nielsen this AM at checkout at 0800. Plan is to watch BPs for at least 72 hours on procardia. Metformin added by Morales due to recent steroid administration and GDM history. Plan will be to deliver at 37 weeks unless indications arise prior to that. BP checks Q4 hours) <Dandre Christie - Last Filed: 11/19/17 11:36>
[2017-11-19] MEDS: Ondansetron ODT 4 MG TAB PO PRN (16:11)
[2017-11-19] MEDS ORDERED: metFORMIN 500 MG TAB PO SCH (17:00)
--- NOTE | 2017-11-19 21:17 | PDOC.EVN ---
Event Note - Event Note Event Note: SABRA Follow up @ 2109: BP check: BP this AM at 0800 was 173/78, then at 1557: 167/86. These are sporadic. Meds are Procardia 30mg QD, and metformin 1000mg po BID. Steroids completed at 1011 this AM (11/19). If BPs remain labile overnight and continue as sporadic severe values, we will plan on trial of induction for severe criteria (BP range) at 24-48 hours after steroids. 48hrs after steroids would be Friday for induction or sooner if BPs remain elevated.I have discussed this paln with the residents mechatronics engineer (Blade). We will follow BPs overnight and see if we need to induce at 24 or 48 hours after steroids.
[2017-11-19 23:20] LABS: Bilirubin Negative (Negative); Blood, Urine Negative (Negative); Clarity CLOUDY (Clear); Glucose, Urine (Dipstick) Negative (Negative); Leukocyte Moderate (Negative); Nitrite Negative (Negative); Protein, Urine (Dipstick) 30 mg/dL (Neg-Trace); Specific Gravity, Urine 1.016 (1.002-1.036)
[2017-11-19 23:22] LABS: Bacteria/HPF Rare-Few HPF (None Seen); Hyaline Casts/LPF 0-3 HYALINE CAST LPF (0-3 Hyaline); Pathc Cast-AUWi Flag 0.14 (0-2.49); Squamous Epithelial 0-3 HPF (0-3); WBC/HPF 21-50 HPF (0-3)
[2017-11-19 23:24] LABS: Yeast-AUWi Flag 94.6 (0-25.0)
[2017-11-19 23:25] LABS: Yeast-All Forms None Seen HPF (None Seen)
[2017-11-19] MEDS ORDERED: NIFEdipine 10 MG CAP PO SCH (23:45)
--- NOTE | 2017-11-19 23:53 | PDOC.EVN ---
Event Note - Event Note Event Note: Pt had two severe rang pressures 173/84 and 164/80 30 minutes apart from each other. She is asymptomatic at this time. will give 10 mg procardia instant release at this time. Continue to monitor. Plan is to induce in the AM due to elevated pressures <Reinaldo Murguia - Last Filed: 11/19/17 23:51> - Event Note Event Note: Faculty: BPs noted. No current sxs. Superimposed preeclampsia with severe BP elevation. Will give nifedipine X 1 now as additional dose and induce first thing in AM. <Dandre Christie - Last Filed: 11/20/17 00:43>
[2017-11-20] MEDS ORDERED: Misoprostol 100 MCG TAB VAG SCH (06:30)
--- NOTE | 2017-11-20 06:30 | PDOC.EVN ---
Event Note - Event Note Event Note: 34 yo @ 34.5 wks with gDM and chronic HTN admitted on 11/17 and found to have superimposed preeclampsia. After review of patient's chart, BPs were noted to be persistently elevated in the severe ranges, even with administration of Procardia. We are now >24 hours after 2nd dose of steroids for lung maturity. Discussed with patient the plan for induction this morning to decrease risk of complications from superimposed preE. Patient expressed understanding and is in agreement with the plan. SVE: 50/-3 Will proceed with cytotec induction. <Kirk Schwab - Last Filed: 11/20/17 06:23> - Event Note Event Note: Faculty Attestation: Patient seen at bedside with Dr Schwab. Progress note also in chart. I explained to the patient our need for induction: persistent BP elevations in the severe range despite medications. Steroids also reviewed. She voiced understanding. We will proceed with cytotec this AM. EGA 34 weeks 5 days. <Dandre Christie - Last Filed: 11/20/17 06:51>
[2017-11-20] MEDS ORDERED: Misoprostol 100 MCG TAB ONE (07:01)
[2017-11-20] MEDS ORDERED: Magnesium Sulfate 20 gm/500 ml 20 GM/500 ML BAG ONE (07:01)
[2017-11-20] MEDS: Magnesium Sulfate 20 gm/500 ml 20 GM/500 ML BAG IVPB SCH ×2 (07:32→15:34)
[2017-11-20] MEDS ORDERED: Magnesium Sulfate 20 GM/WATER 500 ML BAG IVPB SCH (07:37)
[2017-11-20] MEDS ORDERED: Promethazine HCl 25 MG/ML VIAL IM PRN ×2 (07:37→18:39)
[2017-11-20] MEDS ORDERED: Ondansetron HCl/PF 4 MG/2 ML Vial IVP PRN ×2 (07:37→18:39)
[2017-11-20] MEDS ORDERED: NIFEdipine 10 MG CAP PO SCH (07:39)
--- NOTE | 2017-11-20 10:33 | PDOC.LDPN ---
Labor & Delivery Progress Note - Subjective Subjective: painful contractions, other (27 yo at 34.3 weeks gestation being induced dt pre eclampsia w/sever features. Other complications include GDM , diet controlled.) - Objective Abnormal vital signs: Consistently elevated BP most in the 140-160/80-90 range. One BP 160/85 Uterine fundus: non tender Dilation: 1 Effacement: 25% Station: -3 FHT: category 1, variability present, absent or minimal variables [place] contractions every: 3-5 min - Assessment (1) Preeclampsia Code(s): O14.90 - UNSPECIFIED PRE-ECLAMPSIA, UNSPECIFIED TRIMESTER Current Visit: Yes Status: Acute Comment: Pt had multiple sever range BP over night , therefore IOL was initiated. Pt has now 2 doses of cytotec in. Pressures have been below severe range since given procardia this morning. Pt dilated to 1 from 0 in first 3 hours. Continue current plan for IOL. Will give labetalol for any pressures over 160/100. Recheck in 3 hours. (2) Migraine Code(s): G43.909 - MIGRAINE, UNSP, NOT INTRACTABLE, WITHOUT STATUS MIGRAINOSUS Current Visit: Yes Status: Acute Comment: Headaches resolved (3) Gestational diabetes Code(s): O24.419 - GESTATIONAL DIABETES MELLITUS IN , UNSP CONTROL Current Visit: Yes Status: Chronic Qualifiers: Gestational diabetes mellitus control: diet-controlled Comment: Diet controlled. Low carb diet. Metformin has been started. q2 accucheck during IOL Plan: continue plan of care
[2017-11-20] MEDS ORDERED: Labetalol HCl 100 MG/20 ML VIAL SLOW IVP PRN (10:39)
[2017-11-20] MEDS: Lactated Ringer's 1,000 ML IV SCH ×2 (12:21→19:52)
--- NOTE | 2017-11-20 13:39 | PDOC.LDPN ---
Labor & Delivery Progress Note - Subjective Subjective: painful contractions, other (27 yo at 34.3 weeks gestation being induced dt pre eclampsia w/sever features. Other complications include GDM , diet controlled.) - Objective Abnormal vital signs: Consistently elevated BP, few severe range with contractions General: NAD, breathing through contractions Uterine fundus: palpable contractions Dilation: 1 Effacement: 50% Station: -3 FHT: category 1 (FHT baseline 140), variability present, absent or minimal variables [place] contractions every: 5 - Assessment (1) Preeclampsia Code(s): O14.90 - UNSPECIFIED PRE-ECLAMPSIA, UNSPECIFIED TRIMESTER Current Visit: Yes Status: Acute Comment: Pt had multiple sever range BP over night , therefore IOL was initiated. Give 3rd dose of cytotec. Pressures remain elevated with few in severe range during contractions. Give labetalol prn for continued severe range BP. Continue current plan for IOL. Consider pitocin pending cervical change on next check in 3 hours. (2) Migraine Code(s): G43.909 - MIGRAINE, UNSP, NOT INTRACTABLE, WITHOUT STATUS MIGRAINOSUS Current Visit: Yes Status: Acute Comment: Headaches resolved (3) Gestational diabetes Code(s): O24.419 - GESTATIONAL DIABETES MELLITUS IN , UNSP CONTROL Current Visit: Yes Status: Chronic QualifierTitle: Gestational diabetes mellitus control: diet-controlled Comment: Diet controlled. Low carb diet. Metformin has been started. q2 accucheck during IOL <Feng Nevarez - Last Filed: 11/20/17 13:59> Attending Addendum - Attending Addendum Date/Time: 11/21/17 0831 I personally evaluated the patient and discussed the management with Dr. Nevarez I agree with the History, Examination, Assessment and Plan documented above with any addition or exceptions noted below. <Samir Nielsen - Last Filed: 11/21/17 08:31>
[2017-11-20 13:43] LABS: Syphilis Antibody Nonreactive (Nonreactive); Syphilis Antibody Index 0.04 S/CO (<1.00 Non-Reactive)
[2017-11-20 13:44] LABS: HBSAg Index 0.28 S/CO (0-0.99); HIV (1/2) Antibody/Antigen Non-Reactive (NonReactive); HIV 1/2 INDEX 0.05 S/CO (<1.00); Hep B Surf Ag Non-Reactive S/CO (NonReactive)
--- NOTE | 2017-11-20 17:13 | PDOC.LDPN ---
Labor & Delivery Progress Note - Subjective Subjective: painful contractions, other (27 yo at 34.3 weeks gestation being induced dt pre eclampsia w/sever features. Other complications include GDM , diet controlled) - Objective Abnormal vital signs: BP in the 140-160/70-90 range, no severe readings since last check General: NAD, breathing through contractions Uterine fundus: palpable contractions Dilation: 2 Effacement: 50% Station: -3 FHT: category 1, variability present, absent or minimal variables [place] contractions every: 3-5 min - Assessment (1) Preeclampsia Code(s): O14.90 - UNSPECIFIED PRE-ECLAMPSIA, UNSPECIFIED TRIMESTER Current Visit: Yes Status: Acute Comment: Pt is progressing at each check, will plan to start pitocin at 1800. Pressures remain elevated however there have not been severe range BP in >3 hours. Pt has consistently had a cat 1 strip. Give labetalol prn for continued severe range BP. UOP had previously been greater than 150 ml/hr, however over the past 3 hours it has dropped to 80-90 ml/hr. DTR 1+. Pt denies headaches, changes in vision, or abd pain. Continue q1 hour Mg checks UOP monitoring. (2) Migraine Code(s): G43.909 - MIGRAINE, UNSP, NOT INTRACTABLE, WITHOUT STATUS MIGRAINOSUS Current Visit: Yes Status: Acute Comment: Headaches resolved (3) Gestational diabetes Code(s): O24.419 - GESTATIONAL DIABETES MELLITUS IN , UNSP CONTROL Current Visit: Yes Status: Chronic QualifierTitle: Gestational diabetes mellitus control: diet-controlled Comment: Diet controlled. Low carb diet. Metformin has been started. q2 accucheck during IOL <Feng Nevarez - Last Filed: 11/20/17 17:11> Attending Addendum - Attending Addendum Date/Time: 11/21/17 0835 I personally evaluated the patient and discussed the management with Dr. Nevarez I agree with the History, Examination, Assessment and Plan documented above with any addition or exceptions noted below. <Samir Nielsen - Last Filed: 11/21/17 08:35>
[2017-11-20] MEDS ORDERED: DISCONTINUE ALL PREVIOUS NARCOTICS FS SCH (17:30)
[2017-11-20] MEDS: Bupivacaine 0.5% 20 ML, fentaNYL Citrate/PF 400 MCG in Sodium Chloride 0.9% 72 ML EPIDURAL SCH ×2 (18:18→23:29)
[2017-11-20] MEDS ORDERED: Acetaminophen 325 MG TAB PO PRN (18:39)
[2017-11-20] MEDS ORDERED: Eucerin (Mineral Oil/Petrolatum,White) 30 gm Jar TOP PRN (18:39)
[2017-11-20] MEDS ORDERED: Lactated Ringer's 500 ML IV PRN (18:39)
[2017-11-20] MEDS ORDERED: Naloxone HCl 0.4 mg/ml Vial IVP PRN ×2 (18:39)
[2017-11-20] MEDS ORDERED: diphenhydrAMINE 50 MG/ML VIAL IVP PRN (18:39)
[2017-11-20] MEDS ORDERED: ePHEDrine/0.9% NaCl/PF SYRINGE 50 mg/10 ml SLOW IVP PRN (18:39)
[2017-11-20] MEDS ORDERED: Communication Order-Pharmacy FS SCH (18:45)
[2017-11-20] MEDS ORDERED: Fentanyl 4mcg/Marcaine 0.1% Cassette 100 ML EPIDURAL SCH (18:45)
--- NOTE | 2017-11-20 19:12 | PDOC.APC ---
Antepartum Consult DINORA CHONG is a 27 year old female at [34 5/7] gestational weeks. complicated by gestational diabetes and severe pre-E. She was admitted on 11/17 for elevated blood pressures and received betamethasone x2. Induction of labor started this am for persistently abnormal blood pressures. She has a history of a previous child with GBS meningitis. Her admission serologies are negative. I was asked by Dr Nielsen to speak with the patient regarding anticipated course for a baby born at 34 weeks. I spoke with the patient and I outlined that the timing and mode of delivery is a decision that will be made by the OB service. Once the patient is taken for delivery, the resuscitation team will be present. The initial focus will be on respiratory stabilization and may include minimal assistance, CPAP or intubation with surfactant administration. I discussed that the patient will need to be admitted to the NICU in an isolette due to temperature instability associated with prematurity. We will then obtain IV access (peripheral will be first line, umbilical if unable to obtain peripheral) as babies are at risk for hypoglycemia. We discussed that babies born are at higher risk for feeding intolerance , infection and jaundice. I discussed that breastmilk is the best nutrition for babies and she is strongly encouraged to pump after delivery. Mother does plan to breastfeed. I explained that the duration of hospital stay will be determined on the clinical course of the baby and she should expect for the baby to be hospitalized until her due date. She had the opportunity to ask questions. I encouraged her to contact our service again if additional questions arise. I spent 20 minutes in consultation and coordination of care. Labs: Ante Labs Hep Bs Antigen Non-Reactive S/CO (NonReactive) 11/20/17 12:12
[2017-11-20] MEDS: metFORMIN 500 MG TAB PO SCH (19:26)
[2017-11-20] MEDS: NIFEdipine XL 30 MG TAB PO SCH (19:26)
[2017-11-20] MEDS ORDERED: LR 500 ML/Oxytocin 10 units 500 ML ONE (20:28)
[2017-11-20] MEDS: LR 500 ML/Oxytocin 10 units 500 ML IV SCH (20:43)
[2017-11-20] MEDS: Ondansetron ODT 4 MG TAB PO PRN (21:18)
[2017-11-20] MEDS ORDERED: Penicillin G Potassium 5 MILL.UNITS VIAL ONE (23:13)
[2017-11-20] MEDS ORDERED: Penicillin G Potassium 5 MILL.UNITS in Sodium Chloride 0.9% 100 ML IVPB SCH (23:30)
--- NOTE | 2017-11-21 01:35 | PDOC.LDPN ---
Labor & Delivery Progress Note - Subjective Subjective: painful contractions, vaginal pressure - Objective Vital signs reviewed and normal: yes General: NAD, breathing through contractions SVE: 12:30 Dilation: 3 Effacement: 50% Station: -2 FHT: category 1 [place] contractions every: 3-4 - Assessment (1) Preeclampsia Code(s): O14.90 - UNSPECIFIED PRE-ECLAMPSIA, UNSPECIFIED TRIMESTER Current Visit: Yes Status: Acute Comment: Pitocin started around 2030 for augmentation of labor due to PreE w/ severe pressures. Pressures have come down. No severe range pressures since last check. Pt has consistently had a cat 1 strip. Give labetalol prn for continued severe range BP. DTR+1. Pt denies headaches, changes in vision, or abd pain. UOP 80-90 mls per hour. (2) Gestational diabetes Code(s): O24.419 - GESTATIONAL DIABETES MELLITUS IN , UNSP CONTROL Current Visit: Yes Status: Chronic QualifierTitle: Gestational diabetes mellitus control: diet-controlled Comment: Diet controlled. Low carb diet. Metformin has been started. q2 accucheck during IOL. Not given most recent dose as sugars in the 80s. Continue monitoring. Not eating due to induction of labor Plan: continue plan of care, pitocin for augmentation -: Continue pitocin for augmentation of Labor. Cat [address]. Pain somewhat controlled. Feeling ctx and pressure. Plan as above for Pre E w/ severe features and Gestational Diabetes. <Reinaldo Murguia - Last Filed: 11/21/17 01:39> Attending Addendum - Attending Addendum Date/Time: 11/21/17 0837 I personally evaluated the patient and discussed the management with Dr. Murguia I agree with the History, Examination, Assessment and Plan documented above with any addition or exceptions noted below. <Samir Nielsen - Last Filed: 11/21/17 08:37>
[2017-11-21] MEDS: Magnesium Sulfate 20 gm/500 ml 20 GM/500 ML BAG IVPB SCH ×3 (01:53→22:35)
--- NOTE | 2017-11-21 02:11 | PDOC.LDPN ---
Labor & Delivery Progress Note - Subjective Subjective: comfortable, vaginal pressure - Objective Vital signs reviewed and normal: yes General: NAD, resting Uterine fundus: non tender [place] contractions every: 8 min - Assessment (1) Preeclampsia Code(s): O14.90 - UNSPECIFIED PRE-ECLAMPSIA, UNSPECIFIED TRIMESTER Current Visit: Yes Status: Acute Comment: Received cytotec x3. Will now start pitocin at this time for induction of labor due to PreE w/ severe pressures. Had some severe range pressures around 1800. Labetolol given. Pressures lowered since.. Pt has consistently had a cat 1 strip. Give labetalol prn for continued severe range BP. DTR+1. Pt denies headaches, changes in vision, or abd pain. UOP 80-90 mls per hour. (2) Gestational diabetes Code(s): O24.419 - GESTATIONAL DIABETES MELLITUS IN , UNSP CONTROL Current Visit: Yes Status: Chronic Qualifiers: Gestational diabetes mellitus control: diet-controlled Comment: Diet controlled. Low carb diet. Metformin has been started. q2 accucheck during IOL. Not given most recent dose as sugars in the 80s. Continue monitoring. Not eating due to induction of labor Plan: continue plan of care, pitocin for augmentation
--- NOTE | 2017-11-21 04:29 | PDOC.LDPN ---
Labor & Delivery Progress Note - Subjective Subjective: comfortable - Objective Vital signs reviewed and normal: yes (sleeping at this time) General: NAD, resting Uterine fundus: non tender FHT: category 1, variability present [place] contractions every: 2-3 - Assessment (1) Preeclampsia Code(s): O14.90 - UNSPECIFIED PRE-ECLAMPSIA, UNSPECIFIED TRIMESTER Current Visit: Yes Status: Acute Comment: Received cytotec x3. Pitocin for induction of labor due to PreE w/ severe pressures. Had some severe range pressures around 1800. Labetolol given. BP elevated. Not in severe range. Pt has consistently had a cat 1 strip. Give labetalol prn for continued severe range BP. DTR+1. Pt denies headaches, changes in vision, or abd pain. Pt resting at this time. Comfortable. UOP increasing (2) Gestational diabetes Code(s): O24.419 - GESTATIONAL DIABETES MELLITUS IN , UNSP CONTROL Current Visit: Yes Status: Chronic Qualifiers: Gestational diabetes mellitus control: diet-controlled Comment: Diet controlled. Low carb diet. Metformin has been started. q2 accucheck during IOL. Not given most recent dose as sugars in the 80s. Continue monitoring. Not eating due to induction of labor
[2017-11-21] MEDS: Bupivacaine 0.5% 20 ML, fentaNYL Citrate/PF 400 MCG in Sodium Chloride 0.9% 72 ML EPIDURAL SCH (04:40)
[2017-11-21] MEDS: Pen G 2.5 MILL.UNITS/50 ML BAG IVPB SCH ×4 (05:47→17:02)
[2017-11-21] MEDS ORDERED: Lidocaine 1% (PF) 30 ML VIAL ONE (06:49)
[2017-11-21] MEDS ORDERED: LR / Pitocin 40 units/1000 ml 1,000 ML ONE (06:49)
[2017-11-21] MEDS ORDERED: Milk Of Magnesia 30 ML UDCUP PO PRN (07:46)
[2017-11-21] MEDS ORDERED: Bisacodyl 10 MG SUPP PR PRN (07:46)
[2017-11-21] MEDS ORDERED: Benzocaine/Menthol 20-0.5% 60 ML CAN TOP PRN (07:46)
[2017-11-21] MEDS ORDERED: Adacel (T-DAP) 0.5 ML VIAL IM ONE (07:46)
[2017-11-21] MEDS: LR / Pitocin 40 units/1000 ml 1,000 ML IV SCH ×2 (08:02→09:40)
[2017-11-21] MEDS: Lactated Ringer's 1,000 ML IV SCH ×4 (08:04→21:23)
[2017-11-21] MEDS: Docusate Calcium (SURFAK) 240 MG CAP PO SCH ×2 (09:46→20:32)
[2017-11-21] MEDS: Ferrous Sulfate 325 MG TAB PO SCH ×2 (09:46→17:10)
[2017-11-21] MEDS: HYDROcodone/Acetaminophen 5/325 mg Tablet PO PRN ×3 (09:47→20:30)
[2017-11-21] MEDS: metFORMIN 500 MG TAB PO SCH ×2 (09:48→17:11)
[2017-11-21] MEDS: NIFEdipine XL 30 MG TAB PO SCH (09:49)
--- NOTE | 2017-11-21 12:08 | PDOC.OPDEL ---
OB Operative/Delivery Note Delivery Dr/Surgeon: Samy Nevarez Hodnett Pre-Delivery Diagnosis: medically indicated induction (secondary to pre eclampsia with severe features) Procedure/Post Delivery Dx: spontaneous vaginal delivery Weeks gestation: 34 (34.3) Anesthesia: epidural - Findings A Sex: male Weight: 5379 lb 4.462 oz - 1 min: 8 - 5 min: 9 - Additional Findings/Plan Placenta delivered: spontaneous Repaired Obstetrical Laceration: none Estimated blood loss: 300 Compilations/Other Findings: @ 34.3 weeks delivered a viable M at 0733 on 11/21. Antepartum course was uneventful. A vigorous M was delivered over an intact perineum in the PERLA position. Anterior shoulder followed by remainder of the body delivered. No nuchal cord. The head was held down and bulb suctioned. Cord was clamped and cut and was handed off to chelsie team due to prematurity. Cord blood was collected. Placenta delivered intact w/3vv cord at 0738. Fundal massage was performed and fundus was firm. Cervix and vagina were inspected, no lacerations were found. was put skin to skin with plan for routine care. APGARS were 8/9 at 1 and 5 min. Patient tolerated delivery well. Plant to continue magnesium for 24 hours and then transfer to post for routine care pending stabilization of blood pressures. Post delivery plan: routine recovery (after 24 hours of magnesium) <Feng Nevarez - Last Filed: 11/21/17 12:06> Attending Addendum - Attending Addendum Date/Time: 11/22/17 1214 I was present and the attending physician for the delivery of Ms Deloris Beyer. <Samir Nielsen - Last Filed: 11/22/17 12:16>
--- NOTE | 2017-11-21 12:39 | PDOC.EVN ---
Event Note - Event Note Event Note: Mg Check S: Pt s/p at 0733 this am. Feels well has some lower abdominal pain. Denies headaches, changes in vision, SOB, or RUQ pain. O: Vitals: BP typically 140s/80s, no severe range BP General: A&Ox3 HEENT: atraumatic/normocephalic Cardio: RRR, no murmur. 1+ edema in UE b/l Resp: CTA b/l Abd: bs x4, no RUQ tenderness. Uterus firm and appropriately tender Neuro: DTR 1+ A/P: Pt doing well, no severe BP or concerning symptoms. UOP has improved to 100 ml/ hr on average over the past 4 hours. Continue Mg for 24 hours total duration. Will decrease fluids from 175 to 125 m/l hr. Monitor UOP and BP. <Feng Nevarez - Last Filed: 11/21/17 12:34> - Event Note Event Note: Discussed with Dr. Nevarez and agree with plan. <Familia Christiansen - Last Filed: 11/21/17 14:29>
[2017-11-21] MEDS: Ibuprofen 800 MG TAB PO SCH ×2 (13:07→21:22)
--- NOTE | 2017-11-21 16:53 | PDOC.EVN ---
Event Note - Event Note Event Note: Mg Check S: Pt is a 27yo ->3 s/p at 0733 this am. Pt doing well without any complaints. Denies any HAs, vision changes, RUQ pain or shortness of breath. O: Vitals: BP 135/74 HR 80 General: NAD HEENT: atraumatic/normocephalic Cardio: RRR, 1/6 systolic murmur, trace edema BL Resp: CTAB Neuro: DTR 1+ BL A/P: 27yo ->4 s/o on 11/21/17 @ 0733. 1. PreE w/ severe features superimposed on chronic HTN: - Pt is asymptomatic and BPs stable. No need for BP treatment. Cont to monitor. - UOP has been steady around 100cc/hr and has improved over the last hour at 245cc/hr. Cont to monitor. - Cont MgSO4 for full 24hrs until 0733 on 11/22. <Romi Islas - Last Filed: 11/21/17 16:46> Attending Addendum - Attending Addendum Date/Time: 11/21/171 I agree with this Assessment and Plan. Pt. doing well. Will DC MGsO4 in AM. <Familia Christiansen - Last Filed: 11/21/17 21:23>
--- NOTE | 2017-11-21 23:15 | PDOC.EVN ---
Event Note - Event Note Event Note: Mg Check S: Pt is a 27yo ->3 s/p at 0733 this am. Pt doing well without any complaints. Denies any HAs, vision changes, RUQ pain or shortness of breath. O: Vitals: BP 120's/80s HR 80 General: NAD HEENT: atraumatic/normocephalic Cardio: RRR, trace edema BL Resp: CTAB Neuro: DTR 1+ BL A/P: 27yo ->4 s/o on 11/21/17 @ 0733. 1. PreE w/ severe features superimposed on chronic HTN: - Pt is asymptomatic and BPs stable. No need for BP treatment. Cont to monitor. - UOP has been improving up to 200-400cc/hr. Cont to monitor. - Cont MgSO4 for full 24hrs until 0733 on 11/22. <Reinaldo Murguia - Last Filed: 11/21/17 23:14> Attending Addendum - Attending Addendum Date/Time: 11/21/17 7314 I agree with the Assessment and Plan documented above. <Familia Christiansen - Last Filed: 11/21/17 23:58>
[2017-11-22 05:20] LABS: Hemoglobin 11.8 g/dL (12.0-16.0); Mean Corpuscular HGB CONC 35.1 g/dL (32.0-36.0); Mean Corpuscular Hemoglobin 31.4 pg (27.0-31.0); Mean Corpuscular Volume 89.4 fl (81.0-99.0); Mean Platelet Volume 8.4 fL (7.4-10.4); Platelet Count 213 thou/uL (130-400); RBC Distribution Width 12.2 % (11.5-14.5); Red Blood Cell (RBC) Count 3.76 mill/uL (4.20-5.40); White Blood Cell (WBC) Count 11.3 thou/uL (4.8-10.8)
[2017-11-22] MEDS: Pen G 2.5 MILL.UNITS/50 ML BAG IVPB SCH (05:51)
[2017-11-22] MEDS: LR 500 ML/Oxytocin 10 units 500 ML IV SCH (05:52)
[2017-11-22] MEDS: Ibuprofen 800 MG TAB PO SCH ×3 (05:53→21:58)
--- NOTE | 2017-11-22 05:55 | PDOC.EVN ---
Event Note - Event Note Event Note: Mg Check S: Pt is a 27yo ->3 s/p at 0733 this am. Pt doing well without any complaints. Is sleeping and resting comfortably at this time Denies any HAs, vision changes, RUQ pain or shortness of breath. O: Vitals: BP 130's/80 HR 80's General: NAD HEENT: atraumatic/normocephalic Cardio: RRR, trace edema BL Resp: CTAB Neuro: DTR 1+ BL A/P: 27yo ->4 s/o on 11/21/17 @ 0733. 1. PreE w/ severe features superimposed on chronic HTN: - Pt is asymptomatic and BPs stable. No need for BP treatment. Cont to monitor. - UOP has been improving up to 500cc-100cc an hour. Cont to monitor. - Cont MgSO4 for full 24hrs until 0733 on 11/22.
--- NOTE | 2017-11-22 05:56 | PDOC.EVN ---
Event Note - Event Note Event Note: Mg Check S: Pt is a 27yo ->3 s/p at 0733 this am. Pt doing well without any complaints. Sleeping again at this time. Resing well Denies any HAs, vision changes, RUQ pain or shortness of breath. O: Vitals: BP 130-140/80's HR 80 General: NAD HEENT: atraumatic/normocephalic Cardio: RRR, trace edema BL Resp: CTAB Neuro: DTR 1+ BL A/P: 27yo ->4 s/o on 11/21/17 @ 0733. 1. PreE w/ severe features superimposed on chronic HTN: - Pt is asymptomatic and BPs stable. One elevated pressure to 150's otherwise stable No need for BP treatment. Cont to monitor. - UOP decreased a little. Still 400-500cc an hour. stable.. Cont to monitor. - Cont MgSO4 for full 24hrs until 0733 on 11/22.
--- NOTE | 2017-11-22 07:53 | PDOC.PP ---
Post Progress Note Post Day #: 1 Subjective: 27 yo who delivered a viable M at 34.4 via . Labor was induced dt pre eclampsia w/severe features. Delivery was uncomplicated. Mother feels well this morning. She has minimal pain and states that her bleeding is similar to a period. She denies headaches, changes in vision, RUQ abd pain, fever, SOB, or chest pain. She has no specific complaints PO intake tolerated: yes Flatus: yes Ambulation: no Vital Signs (12 hours) Temp Pulse Resp 11/22/17 04:00 98 F 76 20 11/22/17 00:00 98 F 76 20 11/21/17 20:00 97.9 F 76 20 Weight Weight 95.708 kg BP High today 157/83 - Physical Examination General: NAD Cardiovascular: no m/r/g, RRR Respiratory: clear to auscultation bilaterally Abdominal: + bowel sounds, appropriately TTP Fundus firm & at: U -2 Extremities: negative homans (B) Neurological: no gross focal deficits Psychiatric: A&Ox3, normal affect Result Diagrams: 11/22/17 05:04 11/19/17 06:42 Additional Labs: Post Labs Hep Bs Antigen Non-Reactive S/CO (NonReactive) 11/20/17 12:12 (1) Preeclampsia Code(s): O14.90 - UNSPECIFIED PRE-ECLAMPSIA, UNSPECIFIED TRIMESTER Status: Acute Comment: Mag has been stopped. No severe range pressures since delivery. Continue to monitor pressures on post . There is likely superimposed chronic HTN. WIll continue procardia. (2) Migraine Code(s): G43.909 - MIGRAINE, UNSP, NOT INTRACTABLE, WITHOUT STATUS MIGRAINOSUS Status: Resolved Comment: Headaches resolved (3) Gestational diabetes Code(s): O24.419 - GESTATIONAL DIABETES MELLITUS IN , UNSP CONTROL Status: Chronic Qualifiers: Gestational diabetes mellitus control: diet-controlled Comment: Diet controlled. Low carb diet accucheck ACHS (4) delivery Status: Acute Comment: Medically indicated induction dt pre e w/severe features. s/p day 1. Pt doing well. Will move to post today. Encourage ambulation today and to go see baby in NICU. Mood is currently good, no current concern depression. Continue routine post care.
[2017-11-22] MEDS: metFORMIN 500 MG TAB PO SCH ×2 (08:20→17:07)
[2017-11-22] MEDS: NIFEdipine XL 30 MG TAB PO SCH (08:55)
[2017-11-22] MEDS: Ferrous Sulfate 325 MG TAB PO SCH ×2 (09:17→18:28)
[2017-11-22] MEDS: Docusate Calcium (SURFAK) 240 MG CAP PO SCH ×2 (09:17→21:58)
[2017-11-22] MEDS: HYDROcodone/Acetaminophen 5/325 mg Tablet PO PRN (20:37)
[2017-11-23 03:54] VITALS: BP 125/60; TEMP 98.3
[2017-11-23] MEDS: Ibuprofen 800 MG TAB PO SCH ×2 (06:48→13:45)
--- NOTE | 2017-11-23 07:59 | PDOC.PP ---
Post Progress Note Post Day #: 2 Subjective: 27 yo who delivered a viable M at 34.4 via . Labor was induced dt pre eclampsia w/severe features. Delivery was uncomplicated. Mother has no specific complaints this morning. Her pain is well controlled and bleeding is less than a normal period. She is ambulating well, voiding and BM w/o problem. She denies chest pain, SOB, fever, chills, leg swelling. PO intake tolerated: yes Flatus: yes Ambulation: yes Vital Signs (12 hours) Temp Pulse Resp BP BP 11/23/17 03:53 98.3 F 87 16 125/60 11/22/17 20:00 99.4 F 108 H 18 120/76 Weight Weight 95.708 kg - Physical Examination General: NAD Cardiovascular: no m/r/g, RRR Respiratory: clear to auscultation bilaterally Abdominal: + bowel sounds, appropriately TTP Fundus firm & at: u -3 Extremities: negative homans (B) Neurological: no gross focal deficits Psychiatric: A&Ox3, normal affect Result Diagrams: 11/22/17 20:25 11/19/17 06:42 Additional Labs: Post Labs Hep Bs Antigen Non-Reactive S/CO (NonReactive) 11/20/17 12:12 (1) Preeclampsia Code(s): O14.90 - UNSPECIFIED PRE-ECLAMPSIA, UNSPECIFIED TRIMESTER Status: Acute Comment: Pressures remain below severe range on current management. Most BP are 120s-130s systolic with few over 140. She denies headaches, abd pain , changes in vision. Will continue procardia during the 6 week period post . Then will recommend follow up w/PCP for eval and management of possible essential HTN. Ready for dc today (2) Migraine Code(s): G43.909 - MIGRAINE, UNSP, NOT INTRACTABLE, WITHOUT STATUS MIGRAINOSUS Status: Resolved Comment: Headaches resolved (3) Gestational diabetes Code(s): O24.419 - GESTATIONAL DIABETES MELLITUS IN , UNSP CONTROL Status: Chronic Qualifiers: Gestational diabetes mellitus control: diet-controlled Comment: Pt has been tolerating metformin well and accuchecks have been controlled. Continue low carb diet. Follow up outpt for continued medical management. (4) delivery Status: Acute Comment: Medically indicated induction dt pre e w/severe features. s/p day 2. Pt doing well. Pt will discharge today with standard post follow up
[2017-11-23] MEDS: Ferrous Sulfate 325 MG TAB PO SCH (09:00)
[2017-11-23] MEDS: metFORMIN 500 MG TAB PO SCH (10:31)
[2017-11-23] MEDS: Docusate Calcium (SURFAK) 240 MG CAP PO SCH (10:31)
[2017-11-23] MEDS: NIFEdipine XL 30 MG TAB PO SCH (10:32)
== END 2017-11-23 17:40 | disposition home or self-care (01) | DRG 775 ==
LOC: L&D/OP 21:05 → L&D 22:53 → 3SW 11-18 12:42 → L&D 11-20 07:00 → 3SW 11-22 11:31
PROVIDERS: ADMIT Obstetrics & Gynecology; ATTEND Obstetrics & Gynecology
PROC: 10E0XZZ Delivery of Products of Conception, External Approach (ICD-10-PCS; principal; 2017-11-21)
PROC: 3E033VJ Introduction of Other Hormone into Peripheral Vein, Percutaneous Approach (ICD-10-PCS; 2017-11-21)
DX: O11.4 Pre-existing hypertension with pre-eclampsia, complicating childbirth (principal); O60.14X0 Preterm labor third trimester with preterm delivery third trimester, not applicable or unspecified; O24.420 Gestational diabetes mellitus in childbirth, diet controlled; Z37.0 Single live birth; Z3A.34 34 weeks gestation of pregnancy; Z87.59 Personal history of other complications of pregnancy, childbirth and the puerperium; G43.909 Migraine, unspecified, not intractable, without status migrainosus; O75.89 Other specified complications of labor and delivery
CPT/HCPCS: 36415; 36416; 51701; 51702; 76815; 76819; 80053; 81001; 81003; 81015; 82570; 83735; 84156; 85025; 85027; 86780; 87081; 87340; 87389; 99285; J0702; J1200; J2001; J2540; J2550; J2765; J3010; J3475; J3490; J7050; J7120; Q0162

== ENCOUNTER 2018-03-25 20:18 | Observation (INO) | payer SELFPAY, OTHER ==
[2018-03-25 20:50] LABS: Bilirubin Negative (Negative); Blood, Urine Negative (Negative); Clarity CLEAR (Clear); Glucose, Urine (Dipstick) Negative (Negative); Leukocyte Moderate (Negative); Nitrite Negative (Negative); Protein, Urine (Dipstick) Negative (Neg-Trace); Specific Gravity, Urine 1.012 (1.002-1.036)
[2018-03-25 20:51] LABS: Pregnancy Test - Urine (BHCG) Negative (Negative); Pregu Control Background? CLEAR/WHITE (CLR/WHITE); Pregu Control Bar Appear? YES (CONTROL BAR); Specific Gravity 1.012 (1.002-1.036)
[2018-03-25 20:51] LABS: #Basophils 0.1 thou/uL (0.0-0.2); #Eosinphils 0.2 thou/uL (0.0-0.7); #Lymphocytes 2.2 thou/uL (1.20-3.40); #Monocytes 0.6 thou/uL (0.11-0.59); #Neutrophils 8.7 thou/uL (1.40-6.50); %Basophils 1.1 % (0.0-1.0); %Eosinophils 2.1 % (0.0-10.0); %Lymphocytes 18.4 % (21.0-51.0); %Monocytes 5.4 % (0.0-10.0); %Neutrophils 73.1 % (42.0-75.0); Hemoglobin 14.7 g/dL (12.0-16.0); Mean Corpuscular HGB CONC 35.8 g/dL (32.0-36.0); Mean Corpuscular Hemoglobin 30.1 pg (27.0-31.0); Mean Platelet Volume 6.9 fL (7.4-10.4); Platelet Count 257 thou/uL (130-400); RBC Distribution Width 13.2 % (11.5-14.5); Red Blood Cell (RBC) Count 4.87 mill/uL (4.20-5.40); White Blood Cell (WBC) Count 11.8 thou/uL (4.8-10.8)
[2018-03-25 20:52] LABS: Bacteria/HPF Rare-Few HPF (None Seen); Hyaline Casts/LPF 0-3 HYALINE CAST LPF (0-3 Hyaline); Pathc Cast-AUWi Flag 0.29 (0-2.49); RBC/HPF 0-3 HPF (0-3)
[2018-03-25 21:13] LABS: ALT (SGPT) 78 U/L (8-55); AST (SGOT) 30 U/L (5-34); Albumin 4.4 g/dL (3.5-5.0); Alkaline Phosphatase 107 U/L (40-150); Anion Gap 11 mmol/L (10-20); BUN (Urea Nitrogen) 9 mg/dL (7.0-18.7); Bilirubin, Total 0.5 mg/dL (0.2-1.2); Calc. Creatinine Clearance 0 mL/min (70-130); Calcium 8.9 mg/dL (7.8-10.44); Carbon Dioxide 24 mmol/L (22-29); Chloride 106 mmol/L (98-107); Estimated GFR-MDRD Greater than 90; Globulin 3.5 g/dL (2.4-3.5); Glucose 155 mg/dL (70-105); Potassium 3.6 mmol/L (3.5-5.1); Protein, Total 7.9 g/dL (6.0-8.3); Sodium 137 mmol/L (136-145)
[2018-03-25] MEDS ORDERED: Acetaminophen 500 MG TAB ONE (21:37)
[2018-03-25] MEDS ORDERED: Mag-Al 1200 mg/1200 mg/30 ML UDCUP ONE (21:38)
[2018-03-25] MEDS ORDERED: Famotidine 20 MG TAB ONE (21:38)
[2018-03-25] MEDS ORDERED: Pantoprazole 40 MG VIAL ONE (21:38)
[2018-03-25] MEDS ORDERED: Lidocaine Viscous Sol 2% 15 ml UD Cup ONE (21:38)
--- NOTE | 2018-03-25 21:45 | RAD ---
CHEST ONE VIEW 03/25/18 HISTORY: Dyspnea. FINDINGS: The cardiac silhouette is magnified. Pulmonary vasculature unremarkable. mediastinum is midline. Subt le parenchymal opacity overlies the right posterior medial lung base. Upper lobes are clear. IMPRESSION: Subtle right posterior basilar infiltrate. Clinical correlation regarding other signs and symptoms of right basilar pneumonitis is required. Please consider short term radiographic followup with up PA a nd lateral views of the chest. POS: [facility]
[2018-03-25] MEDS ORDERED: cefTRIAXone\\ROCEPHIN 2 GM VIAL ONE (22:15)
[2018-03-25] MEDS ORDERED: Ondansetron HCl/PF 4 MG/2 ML Vial ONE (22:49)
[2018-03-25] MEDS ORDERED: Ketorolac Tromethamine 30 MG/ML VIAL ONE (22:49)
[2018-03-25] MEDS ORDERED: Vancomycin HCl 1.5 GM in Sodium Chloride 0.9% 250 ML 300 ML IVPB SCH (23:00)
[2018-03-25] MEDS ORDERED: Azithromycin 250 MG TAB ONE (23:00)
--- NOTE | 2018-03-25 23:01 | CT ---
CT HEAD NONCONTRAST: 03/25/18 HISTORY: Headache. COMPARISON: 10/08/15 FINDINGS: There is no evidence of acute intracranial hemorrhage or infarct. Ventricles appear normal in size, s hape, and position. There is no mass effect or shift of midline structures. IMPRESSION: No acute intracranial abnormalities are demonstrated. POS: [facility]
[2018-03-26] MEDS ORDERED: Ondansetron HCl/PF 4 MG/2 ML Vial IVP PRN (00:29)
[2018-03-26] MEDS ORDERED: Ondansetron ODT 4 MG TAB SL PRN (00:29)
[2018-03-26] MEDS ORDERED: Acetaminophen 325 MG TAB PO PRN (00:29)
[2018-03-26 00:32] VITALS: BMI 40.6
[2018-03-26] MEDS: Sodium Chloride 0.9% 1,000 ML IV SCH ×2 (01:35→08:23)
[2018-03-26] MEDS ORDERED: cefTRIAXone\\ROCEPHIN 2 GM in Sodium Chloride 0.9% 100 ML IVPB SCH (09:00)
[2018-03-26] MEDS: Vancomycin HCl 1.5 GM in Sodium Chloride 0.9% 250 ML 300 ML IVPB SCH ×2 (09:35→16:25)
--- NOTE | 2018-03-26 14:20 | PDOC.PN ---
- Subjective Encounter Start Date: 03/26/18 Encounter Start Time: 10:30 Subjective: pt up in bed no complains - Objective Resuscitation Status: Resuscitation Status FULL:Full Resuscitation Vital Signs & Weight: Vital Signs (12 hours) Temp Pulse Resp BP Pulse Ox 03/26/18 12:00 97 03/26/18 11:45 97.7 F 86 18 118/73 96 03/26/18 08:00 98.3 F 87 22 H 03/26/18 07:54 98.3 F 87 22 H 136/81 96 03/26/18 04:57 98.3 F 83 22 H 120/77 97 Weight Weight 222 lb 2 oz I&O: 03/25/18 03/26/18 03/27/18 06:59 06:59 06:59 Intake Total 240 Balance 240 Result Diagrams: 03/25/18 20:42 03/25/18 20:42 Phys Exam - Physical Examination Neck: no nodes, no JVD, supple, full ROM decreased breath sound to right lower lung Cardiovascular: RRR, no significant murmur, no rub, gallop, irregular Gastrointestinal: soft, non-tender, no distention, positive bowel sounds Dx/Plan (1) Pneumonia Code(s): J18.9 - PNEUMONIA, UNSPECIFIED ORGANISM Status: Acute (2) Elevated LFTs Code(s): R94.5 - ABNORMAL RESULTS OF LIVER FUNCTION STUDIES Status: Acute - Plan will continue abx for now -: will check sptum cx -: pt headache has improved * . Review of Systems - Review of Systems Respiratory: negative: Cough, Dry, Shortness of Breath, Hemoptysis, SOB with Excertion, Pleuritic Pain, Sputum, Wheezing Cardiovascular: negative: chest pain, palpitations, orthopnea, paroxysmal nocturnal dyspnea, edema, light headedness, other Gastrointestinal: negative: Nausea, Vomiting, Abdominal Pain, Diarrhea, Constipation, Melena, Hematochezia, Other Genitourinary: negative: Dysuria, Frequency, Incontinence, Hematuria, Retention , Other - Medications/Allergies Allergies/Adverse Reactions: Allergies Allergy/AdvReac Type Severity Reaction Status Date / Time No Known Allergies Allergy Verified 03/26/18 00:29 Medications: Current Medications Ceftriaxone Sodium 2 gm/ (Sodium Chloride) 100 mls @ 200 mls/hr IVPB Q12HR CELE Last Admin: 03/26/18 08:22 Dose: 100 mls Azithromycin 500 mg/ Sodium (Chloride) 250 mls @ 250 mls/hr IVPB Q24HR CELE Vancomycin HCl 1.5 gm/ Sodium (Chloride) 300 mls @ 200 mls/hr IVPB 0800,1600, 2359 CELE Last Admin: 03/26/18 09:35 Dose: 300 mls Sodium Chloride (Flush - Normal Saline) 10 ml IVF Q12HR CELE Sodium Chloride (Flush - Normal Saline) 10 ml IVF PRN PRN PRN Reason: Saline Flush
--- NOTE | 2018-03-26 14:51 | HP ---
TIME OF EVALUATION: 4:30 a.m. PRIMARY CARE PHYSICIAN: . CODE STATUS: FULL CODE. CHIEF COMPLAINT: Fever and headache. HISTORY OF PRESENT ILLNESS: This is a 27-year-old female patient with past medical history of hypert ension, not on any medical treatment. She came to the hospital after having a severe headache associ ated with fever, symptoms have been going on for 3 days, also associated with low back pain, sore thr oat, generalized body aches, no clear triggers, no alleviating factors, no sick contacts. She report ed that the headache was severe. REVIEW OF SYSTEMS: Constitutional: The patient has fever, chills, generalized weakness. Respirator y: No cough, sputum production, or shortness of breath. Cardiovascular: No chest pain, palpitation s, or shortness of breath. Gastrointestinal: The patient had nausea, no vomiting, no diarrhea, no a bdominal pain. HEENT: The patient has sore throat. Central Nervous Systems: The patient has sever e headache, no dizziness, no feeling lightheaded. No burning on urination. Extremities: No leg swe lling. All other systems reviewed and negative except for the findings mentioned above. PAST MEDICAL HISTORY: The patient has a history of hypertension, not on any medication, also history of Grover palsy. PAST SURGICAL HISTORY: Left breast surgery due to mastitis. PSYCHIATRIC HISTORY: No previous psych history. SOCIAL HISTORY: No alcohol, no drugs. No smoking history. REPORTED MEDICATIONS: None. PHYSICAL EXAMINATION: VITAL SIGNS: On presentation, blood pressure 153/108 with heart rate 124, respiratory rate was 22, t emperature 100.1, oxygen saturation 98. GENERAL APPEARANCE: The patient is alert, oriented, not in acute distress. Reported history of havi ng a headache. HEENT: Eyes: Normal conjunctivae. Moist oral mucosa. Anicteric. NECK: No JVD. RESPIRATORY: Bilateral air entry. No rales, no wheezing. Symmetrical expansion. CARDIOVASCULAR: Normal rate, regular rhythm. No murmurs, no gallop. EXTREMITIES: No edema. ABDOMEN: Soft, normal bowel sounds. MUSCULOSKELETAL: Baseline range of motion and strength. No tenderness. Peripheral pulses are prese nt. Capillary refill seems to be intact. SKIN: Warm and intact. No pallor, no rash or redness. NEUROLOGIC: The patient has baseline sensorium. The patient has severe headache, neck pain, and als o lower back pain. No evidence of any new focal weakness. Baseline speech. Cranial nerve seems to be intact. PSYCHIATRIC: The patient is in good mood. No anxiety. Oriented, optimal judgment. IMAGING: EKG was discussed with performing physician from the ER, patient has sinus tachycardia at t he rate of 108. No other significant abnormalities were found. QT corrected 455, QRS 84, WA 156. RADIOLOGY: Chest CT was negative and chest x-ray showed subtle right posterior basilar infiltrate, m ost likely due to pneumonia. LABORATORY DATA: Labs were reviewed. The patient has white count 11.8, hemoglobin 14.7, MCV 84, hay telet count 257,000. Chemistry: Sodium 137, potassium 3.6, chloride 106, carbon dioxide 24, anion g ap 11, creatinine 0.6, glucose 155. GFR greater than 90. LFTs were negative. UA was positive. Whi te count 4-6. ASSESSMENT AND PLAN: The patient will be placed in the hospital with following medical problems: 1. Sepsis. 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 Patient has declined to have LP done in the ER, and broad spectrum antibiot ics have been started to cover PHARMACY TECHNOLOGY INSTRUCTOR infection at this point given the severity of illness. Patient mi t be offered to have a CT-guided LP. If not, we will have to step down antibiotics empirically. F ollow cultures and adjust treatment as needed. 2. Possible right posterior lobe pneumonia, sepsis, has been seen on the chest x-ray. Patient has appropriate antibiotic coverage at this point. Rest of treatment as above. 3. Hyperglycemia, glucose 155. No history of diabetes. This may be secondary to acute physical dis tress. 4. Mildly positive urinalysis, we will place on empiric antibiotic, will likely to have urinary trac t infection. 5. History of hypertension. The patient presented with uncontrolled blood pressure, she does not ta ke any medication for blood pressure at home, this may need to be adjusted here inpatient. The blood pressure has come down by itself. last reading is 120/77. 6. Deep venous thrombosis prophylaxis.
[2018-03-26 16:19] VITALS: BP 131/85; TEMP 97.4
[2018-03-26] MEDS ORDERED: Azithromycin 500 MG in Sodium Chloride 0.9% 250 ML 250 ML IVPB SCH (20:00)
--- NOTE | 2018-03-27 16:36 | PDOC.EVN ---
Event Note - Event Note Event Note: will call in doxy 100mg bid for 7 days and tessalon pearls. Pt advised not to breast feeding.
--- NOTE | 2018-03-28 01:08 | DIS ---
DATE OF ADMISSION: 03/26/2018 Patient left against medical advice on yesterday night around, I believe of 03/27/2018 early in the kee pose[place]. HOSPITAL COURSE: Patient is a 27-year-old female who initially presented to the hospital with a head ache and fever. Patient at this time was found to have a pneumonia and was initially treated with br oad spectrum IV antibiotics. She continued to improve through hospital stay when I saw her on the da y of 03/26/2018. However, overnight, patient stated that she wanted to go home and did not want to b e in the hospital. At this time, the night doctor did talk with her extensively in regard to her cur rent treatment and also especially if she had a baby. Patient stated that she wanted to go h ome and wanted to sign the AMA papers, so she signed the AMA papers and patient left. I will try and call the patient to see if I can at least call her some antibiotics, may also educate her that she c annot breastfeed while she is on these antibiotics and she will need to follow up with PCP.
--- NOTE | 2018-03-28 20:24 | EKG ---
Test Reason : Blood Pressure : / mmHG Vent. Rate : 108 BPM Atrial Rate : 108 BPM P-R Int : 156 ms QRS Dur : 084 ms QT Int : 340 ms P-R-T Axes : 032 024 002 degrees QTc Int : 455 ms Sinus tachycardia Otherwise normal ECG Confirmed by JOSE REEVES DO ([id number]), television news video editor LOULOU NGUYEN ([id number]) on 03/28/2018 8:23:29 PM Referred By: Confirmed By:JOSE REEVES DO
== END 2018-03-26 20:30 | disposition left against medical advice (07) ==
LOC: ERS 20:18 → T4-B 03-26 00:06
PROVIDERS: ADMIT Hospitalist; ATTEND Hospitalist
DX: J18.9 Pneumonia, unspecified organism (principal); I10 Essential (primary) hypertension; R94.5 Abnormal results of liver function studies; Z53.21 Procedure and treatment not carried out due to patient leaving prior to being seen by health care provider
CPT/HCPCS: 36415; 70450; 71045; 80053; 81003; 81015; 81025; 83605; 85025; 87040; 87081; 87086; 87430; 87804; 93005; 96361; 96365; 96366; 96367; 96375; A4216; C9113; G0378; J0456; J0696; J1885; J2405; J3370; J7050

== ENCOUNTER 2019-01-17 15:18 | Emergency (ER) | payer MEDICAID, SELFPAY ==
[2019-01-17] MEDS ORDERED: Ketorolac Tromethamine 30 MG/ML VIAL ONE (15:58)
[2019-01-17] MEDS ORDERED: Cyclobenzaprine 10 MG TAB ONE (15:58)
[2019-01-17 16:23] LABS: Bilirubin Negative (Negative); Blood, Urine Negative (Negative); Clarity CLOUDY (Clear); Glucose, Urine (Dipstick) Negative (Negative); Leukocyte Small (Negative); Nitrite Negative (Negative); Protein, Urine (Dipstick) Negative (Neg-Trace); Specific Gravity, Urine 1.024 (1.002-1.036); Urobilinogen 0.2 mg/dL (0.2-1.0)
[2019-01-17 16:25] LABS: Bacteria/HPF None Seen HPF (None Seen); Hyaline Casts/LPF 0-3 HYALINE CAST LPF (0-3 Hyaline); Pathc Cast-AUWi Flag 0.13 (0-2.49); WBC/HPF 0-3 HPF (0-3)
--- NOTE | 2019-01-17 16:31 | RAD ---
XR Lumbar Spine 2 Or 3 View History: Low back pain Comparison: None. Findings: 5 nonrib-bearing lumbar type vertebra. Low-grade levoscoliosis. Mild degenerative disc spac e height loss at T12/L1. Subtle degenerative disc space height loss at L5/S1. There is cortical irregularity of the superior endplate of L1. Impression: Subtle cortical irregularity anterior superior endplate of L1 unchanged from a CT examina tion from 2017. No acute fracture.
== END 2019-01-17 16:48 | disposition home or self-care (01) ==
LOC: ERS 15:18
DX: M54.5 Low back pain (principal); I10 Essential (primary) hypertension; G51.0 Bell's palsy
CPT/HCPCS: 72100; 81003; 81015; 96372; J1885

== ENCOUNTER 2019-02-25 09:42 | Emergency (ER) | payer SELFPAY ==
[2019-02-25] MEDS ORDERED: diphenhydrAMINE 25 MG CAP ONE (10:25)
[2019-02-25] MEDS ORDERED: predniSONE 20 MG TAB ONE (10:25)
== END 2019-02-25 10:47 | disposition home or self-care (01) ==
LOC: ERS 09:42
DX: L50.0 Allergic urticaria (principal); I10 Essential (primary) hypertension; G51.0 Bell's palsy
CPT/HCPCS: 99283; J7512; Q0163

== ENCOUNTER 2019-05-23 16:15 | Emergency (ER) | payer SELFPAY ==
[2019-05-23 16:42] LABS: #Eosinphils 0.2 thou/uL (0.0-0.7); #Monocytes 0.6 thou/uL (0.11-0.59); #Neutrophils 8.1 thou/uL (1.40-6.50); %Basophils 0.3 % (0.0-1.0); %Eosinophils 1.3 % (0.0-10.0); %Lymphocytes 25.3 % (21.0-51.0); %Neutrophils 68.2 % (42.0-75.0); Hemoglobin 15.7 g/dL (12.0-16.0); Mean Corpuscular Volume 88.6 fL (78.0-98.0); Platelet Count 322 thou/uL (130-400); Red Blood Cell (RBC) Count 5.08 mill/uL (4.20-5.40); White Blood Cell (WBC) Count 11.9 thou/uL (4.8-10.8)
[2019-05-23 16:44] LABS: Bilirubin Negative (Negative); Blood, Urine 2+ (Negative); Clarity Extra Turbid (Clear); Glucose, Urine (Dipstick) Normal (Negative); Leukocyte 500 Leu/uL (Negative); Nitrite Negative (Negative); Protein, Urine (Dipstick) 70 mg/dL (Neg-Trace); RBC/HPF 21-50 HPF (0-3); WBC/HPF Greater than 50 HPF (0-3)
[2019-05-23 16:45] LABS: Bacteria/HPF 1+ HPF (None Seen); Pregnancy Test - Urine (BHCG) Negative (Negative); Pregu Control Background? CLEAR/WHITE (CLR/WHITE); Pregu Control Bar Appear? YES (CONTROL BAR); Specific Gravity 1.027 (1.002-1.036)
[2019-05-23 16:53] LABS: Sperm/HPF None Seen HPF (None Seen)
[2019-05-23 17:05] LABS: ALT (SGPT) 50 U/L (8-55); AST (SGOT) 25 U/L (5-34); Albumin 4.6 g/dL (3.5-5.0); Alkaline Phosphatase 108 U/L (40-110); Anion Gap 12 mmol/L (10-20); BUN (Urea Nitrogen) 8 mg/dL (7.0-18.7); Bilirubin, Total 0.6 mg/dL (0.2-1.2); Calc. Creatinine Clearance 0 mL/min (70-130); Calcium 9.3 mg/dL (7.8-10.44); Carbon Dioxide 27 mmol/L (22-29); Chloride 102 mmol/L (98-107); Estimated GFR-MDRD Greater than 90; Globulin 3.3 g/dL (2.4-3.5); Glucose 74 mg/dL (70-105); Potassium 3.7 mmol/L (3.5-5.1); Protein, Total 7.9 g/dL (6.0-8.3); Sodium 137 mmol/L (136-145)
== END 2019-05-23 17:21 | disposition home or self-care (01) ==
LOC: ERS 16:15
DX: N12 Tubulo-interstitial nephritis, not specified as acute or chronic (principal); I10 Essential (primary) hypertension
CPT/HCPCS: 36415; 80053; 81003; 81015; 81025; 85025; 87077; 87086; 87186; 99283

== ENCOUNTER 2019-06-11 19:46 | Emergency (ER) | payer SELFPAY ==
[2019-06-11 20:33] LABS: #Basophils 0.1 thou/uL (0.0-0.2); #Eosinphils 0.2 thou/uL (0.0-0.7); #Lymphocytes 2.4 thou/uL (1.20-3.40); #Monocytes 0.4 thou/uL (0.11-0.59); #Neutrophils 7.3 thou/uL (1.40-6.50); %Basophils 1.2 % (0.0-1.0); %Lymphocytes 22.9 % (21.0-51.0); %Monocytes 4.1 % (0.0-10.0); %Neutrophils 69.8 % (42.0-75.0); Hemoglobin 14.8 g/dL (12.0-16.0); Mean Corpuscular HGB CONC 34.8 g/dL (32.0-36.0); Mean Corpuscular Hemoglobin 30.5 pg (27.0-31.0); Mean Corpuscular Volume 87.9 fL (78.0-98.0); Platelet Count 298 thou/uL (130-400); RBC Distribution Width 12.1 % (11.5-14.5); Red Blood Cell (RBC) Count 4.84 mill/uL (4.20-5.40); White Blood Cell (WBC) Count 10.4 thou/uL (4.8-10.8)
[2019-06-11 20:50] LABS: BHCG - Serum POSITIVE (NEGATIVE); Pregs Control Background? CLEAR/WHITE (CLR/WHITE); Pregs Control Bar Appear? YES (CONTROL BAR)
[2019-06-11 20:56] LABS: ALT (SGPT) 56 U/L (8-55); AST (SGOT) 31 U/L (5-34); Albumin 4.6 g/dL (3.5-5.0); Alkaline Phosphatase 99 U/L (40-110); Anion Gap 11 mmol/L (10-20); BUN (Urea Nitrogen) 8 mg/dL (7.0-18.7); Bilirubin, Total 0.4 mg/dL (0.2-1.2); Calc. Creatinine Clearance 0 mL/min (70-130); Calcium 9.1 mg/dL (7.8-10.44); Carbon Dioxide 26 mmol/L (22-29); Chloride 105 mmol/L (98-107); Estimated GFR-MDRD 85; Globulin 3.2 g/dL (2.4-3.5); Glucose 117 mg/dL (70-105); Potassium 3.7 mmol/L (3.5-5.1); Protein, Total 7.8 g/dL (6.0-8.3); Sodium 138 mmol/L (136-145)
[2019-06-11 21:08] LABS: Bilirubin Negative (Negative); Blood, Urine Negative (Negative); Clarity Clear (Clear); Glucose, Urine (Dipstick) Normal (Negative); Leukocyte 500 Leu/uL (Negative); Mucous/LPF Rare LPF (<2+); Nitrite Negative (Negative); Protein, Urine (Dipstick) Negative (Neg-Trace); Urobilinogen Normal mg/dL (Less than 2); WBC/HPF 21-50 HPF (0-3)
[2019-06-11 21:16] LABS: Bacteria/HPF 1+ HPF (None Seen)
--- NOTE | 2019-06-11 23:50 | ULT ---
TRANSVAGINAL PELVIC ULTRASOUND WITH BALDWIN SCALE, COLOR FLOW AND SPECTRAL DOPPLER IMAGIN06/11/19 HISTORY: Pelvic pain. Positive test. FINDINGS: The uterus measures 10.3 x 5 x 6 cm without focal mass or endometrial fluid. No intrauterine gestatio nal sac is seen. The endometrium measures 2.3 cm in thickness. The right ovary measures 5.3 x 4.3 x 5.2 cm and the left ovary measures 3 x 2 x 3 cm. There is a 3.9 x 3.6 x 4.3 cm cyst with internal echoes in the right ovary. There is a small amount of free fluid in the cul-de-sac. Flow is demonstrated to both ovaries. No intrauterine gestational sac is seen. IMPRESSION: 1. Thickened endometrium. 2. 4.3 x 3.9 x 3.6 cm right ovarian cyst with internal echoes. 3. Small amount of free fluid in the pelvis. 4. Correlation with serial serum beta HCG levels and follow-up ultrasound is recommended. POS: [facility]
== END 2019-06-12 00:35 | disposition home or self-care (01) ==
LOC: ERS 19:46
DX: O99.89 Other specified diseases and conditions complicating pregnancy, childbirth and the puerperium (principal); R10.30 Lower abdominal pain, unspecified; Z3A.01 Less than 8 weeks gestation of pregnancy
CPT/HCPCS: 36415; 76856; 80053; 81003; 81015; 83605; 84702; 84703; 85025; 87040; 87077; 87086; 87186

== ENCOUNTER 2019-06-14 20:15 | Emergency (ER) | payer SELFPAY ==
[2019-06-14 22:05] LABS: #Eosinphils 0.2 thou/uL (0.0-0.7); #Monocytes 0.5 thou/uL (0.11-0.59); #Neutrophils 6.9 thou/uL (1.40-6.50); %Basophils 0.3 % (0.0-1.0); %Eosinophils 2.1 % (0.0-10.0); %Lymphocytes 28.3 % (21.0-51.0); %Monocytes 4.9 % (0.0-10.0); %Neutrophils 64.3 % (42.0-75.0); Mean Corpuscular HGB CONC 33.4 g/dL (32.0-36.0); Mean Corpuscular Hemoglobin 29.7 pg (27.0-31.0); Mean Corpuscular Volume 88.9 fL (78.0-98.0); Mean Platelet Volume 7.3 fL (7.4-10.4); Platelet Count 286 thou/uL (130-400); Red Blood Cell (RBC) Count 4.72 mill/uL (4.20-5.40); White Blood Cell (WBC) Count 10.7 thou/uL (4.8-10.8)
[2019-06-14 22:26] LABS: ALT (SGPT) 58 U/L (8-55); AST (SGOT) 24 U/L (5-34); Albumin 4.2 g/dL (3.5-5.0); Alkaline Phosphatase 115 U/L (40-110); Anion Gap 10 mmol/L (10-20); BUN (Urea Nitrogen) 6 mg/dL (7.0-18.7); Bilirubin, Total 0.2 mg/dL (0.2-1.2); Calc. Creatinine Clearance 0 mL/min (70-130); Calcium 8.6 mg/dL (7.8-10.44); Carbon Dioxide 25 mmol/L (22-29); Chloride 104 mmol/L (98-107); Estimated GFR-MDRD Greater than 90; Globulin 2.9 g/dL (2.4-3.5); Glucose 213 mg/dL (70-105); Lipase 54 U/L (8-78); Potassium 3.8 mmol/L (3.5-5.1); Protein, Total 7.1 g/dL (6.0-8.3); Sodium 135 mmol/L (136-145)
[2019-06-14 22:26] LABS: Pregnancy Test - Urine (BHCG) POSITIVE (Negative); Pregu Control Background? CLEAR/WHITE (CLR/WHITE); Pregu Control Bar Appear? YES (CONTROL BAR)
[2019-06-14 22:27] LABS: Specific Gravity 1.028 (1.002-1.036)
[2019-06-14 22:28] LABS: Bacteria/HPF 2+ HPF (None Seen); Bilirubin Negative (Negative); Blood, Urine Negative (Negative); Clarity Clear (Clear); Glucose, Urine (Dipstick) Greater than 1000 mg/dL (Negative); Leukocyte 500 Leu/uL (Negative); Nitrite Negative (Negative); Protein, Urine (Dipstick) 20 mg/dL (Neg-Trace); RBC/HPF 0-3 HPF (0-3); Urobilinogen 3 mg/dL (Less than 2)
--- NOTE | 2019-06-14 23:58 | ULT ---
Exam: Pelvic ultrasound including transabdominal, transvaginal, and vascular duplex with color and spectral Doppler imaging. COMPARISON: 06/11/2019 FINDINGS: The uterus measures 10 cm in length and 5.4 cm transversely. The endometrium is markedly thickened an d echogenic up to 2.6 cm. 4.2 cm right ovarian cyst. No evidence for an intrauterine . Right ovary measures 5.2 x 5.0 x 4.8 cm. Left ovary measures 3.6 x 1.8 x 2.8 cm. IMPRESSION: Persistent marked abnormal endometrial thickening with increased echogenicity. 4.2 cm overall stable right ovarian cyst. No evidence for an intrauterine or gestational sac. Continued correlation with follow-up serum hCG's and follow-up ultrasound if needed.
== END 2019-06-15 00:46 | disposition home or self-care (01) ==
LOC: ERS 20:15
DX: O99.89 Other specified diseases and conditions complicating pregnancy, childbirth and the puerperium (principal); R10.9 Unspecified abdominal pain; O16.1 Unspecified maternal hypertension, first trimester; Z3A.01 Less than 8 weeks gestation of pregnancy
CPT/HCPCS: 76856; 80053; 81003; 81015; 81025; 83690; 84702; 85025; 87077; 87086; 87186; 96360; 96361

== ENCOUNTER 2019-07-11 02:20 | Emergency (ER) | payer SELFPAY ==
[2019-07-11 03:00] LABS: Bacteria/HPF 4+ HPF (None Seen); Bilirubin Negative (Negative); Blood, Urine Negative (Negative); Clarity Turbid (Clear); Glucose, Urine (Dipstick) Normal (Negative); Leukocyte 500 Leu/uL (Negative); Nitrite 2+ (Negative); Protein, Urine (Dipstick) 20 mg/dL (Neg-Trace); RBC/HPF 0-3 HPF (0-3); Urobilinogen Normal mg/dL (Less than 2); WBC/HPF 21-50 HPF (0-3)
== END 2019-07-11 03:46 | disposition home or self-care (01) ==
LOC: ERS 02:20
DX: O99.89 Other specified diseases and conditions complicating pregnancy, childbirth and the puerperium (principal); M94.0 Chondrocostal junction syndrome [Tietze]; O23.11 Infections of bladder in pregnancy, first trimester; O99.352 Diseases of the nervous system complicating pregnancy, second trimester; G51.0 Bell's palsy; O16.1 Unspecified maternal hypertension, first trimester
CPT/HCPCS: 81003; 81015; 87077; 87086; 87186; 93005

== ENCOUNTER 2019-08-30 20:12 | Emergency (ER) | payer SELFPAY ==
[2019-08-30 21:14] LABS: #Basophils 0.1 thou/uL (0.0-0.2); #Eosinphils 0.1 thou/uL (0.0-0.7); #Lymphocytes 2.7 thou/uL (1.20-3.40); #Monocytes 0.4 thou/uL (0.11-0.59); %Basophils 0.6 % (0.0-1.0); %Eosinophils 1.1 % (0.0-10.0); %Lymphocytes 26.1 % (21.0-51.0); %Monocytes 3.4 % (0.0-10.0); %Neutrophils 68.7 % (42.0-75.0); Hemoglobin 13.8 g/dL (12.0-16.0); Mean Corpuscular HGB CONC 33.9 g/dL (32.0-36.0); Mean Corpuscular Hemoglobin 29.8 pg (27.0-31.0); Mean Corpuscular Volume 87.9 fL (78.0-98.0); Mean Platelet Volume 7.8 fL (7.4-10.4); Platelet Count 252 thou/uL (130-400); RBC Distribution Width 12.1 % (11.5-14.5); Red Blood Cell (RBC) Count 4.61 mill/uL (4.20-5.40); White Blood Cell (WBC) Count 10.2 thou/uL (4.8-10.8)
--- NOTE | 2019-08-30 22:52 | ULT ---
US OB Complete STANDARD History: Pelvic pain Comparison: Pelvic ultrasound May 2019 Findings: Real-time grayscale, color, and spectral analysis of the pelvis was performed. Normal single viable intrauterine . Anterior placenta. No placenta previa. heart rate documented at 152 bpm. Normal amniotic fluid. The position is breech. Biometry: Biparietal diameter: 16 weeks 0 day, 3.21 cm Head circumference: 15 week 5 day, 11.74 cm Abdominal circumference: 16 week 2 day, 10.32 cm Femur length: 15 week 3 day, 1.83 cm Average ultrasound age is 15 weeks 6 day with estimated date of delivery February 15, 2020. Impression: Normal single viable intrauterine .
[2019-08-30 23:03] LABS: Bilirubin Negative (Negative); Blood, Urine Negative (Negative); Clarity Clear (Clear); Glucose, Urine (Dipstick) Normal (Negative); Leukocyte Negative Leu/uL (Negative); Nitrite Negative (Negative); Protein, Urine (Dipstick) 20 mg/dL (Neg-Trace); Urobilinogen Normal mg/dL (Less than 2)
== END 2019-08-30 23:23 | disposition home or self-care (01) ==
LOC: ERS 20:12
DX: O26.851 Spotting complicating pregnancy, first trimester (principal); O10.911 Unspecified pre-existing hypertension complicating pregnancy, first trimester; O99.89 Other specified diseases and conditions complicating pregnancy, childbirth and the puerperium; R10.30 Lower abdominal pain, unspecified; Z91.14 Patient's other noncompliance with medication regimen; Z3A.14 14 weeks gestation of pregnancy
CPT/HCPCS: 36415; 76856; 81003; 84702; 85025; 86900; 86901; 93976

== ENCOUNTER 2019-09-17 15:15 | Emergency (ER) | payer SELFPAY ==
[2019-09-17] MEDS ORDERED: Ondansetron ODT 4 MG TAB ONE (16:16)
[2019-09-17] MEDS ORDERED: Ibuprofen 200 MG TAB ONE (16:16)
[2019-09-17] MEDS ORDERED: Acetaminophen 500 MG TAB ONE (16:16)
== END 2019-09-17 16:22 | disposition home or self-care (01) ==
LOC: ERS 15:15
DX: R51 Headache (principal); I10 Essential (primary) hypertension
CPT/HCPCS: 99281; Q0162

== ENCOUNTER 2019-10-06 08:42 | Emergency (ER) | payer SELFPAY ==
[2019-10-06 09:34] LABS: Bilirubin Negative (Negative); Blood, Urine Negative (Negative); Clarity Turbid (Clear); Glucose, Urine (Dipstick) Normal (Negative); Leukocyte 500 Leu/uL (Negative); Nitrite Negative (Negative); Protein, Urine (Dipstick) Negative (Neg-Trace); Urobilinogen Normal mg/dL (Less than 2)
[2019-10-06 09:46] LABS: Bacteria/HPF 3+ HPF (None Seen)
--- NOTE | 2019-10-06 10:17 | RAD ---
Exam: Chest one view HISTORY:Chest pain Comparison: 03/25/2018 FINDINGS: Cardiac silhouette: Normal Aorta: Unremarkable Pulmonary vessels: Normal Costophrenic angles: Clear LUNGS: No masses or consolidation. Pneumothorax: None Osseous abnormalities: None IMPRESSION: No acute cardiopulmonary process.
[2019-10-06] MEDS ORDERED: cefTRIAXone\\ROCEPHIN 1 GM VIAL ONE (10:55)
[2019-10-06] MEDS ORDERED: Acetaminophen 325 MG TAB ONE ×2 (10:55→14:24)
[2019-10-06 11:42] LABS: #Eosinphils 0.1 thou/uL (0.0-0.7); #Lymphocytes 2.3 thou/uL (1.20-3.40); #Monocytes 0.5 thou/uL (0.11-0.59); #Neutrophils 5.9 thou/uL (1.40-6.50); %Eosinophils 1.4 % (0.0-10.0); %Lymphocytes 25.8 % (21.0-51.0); %Monocytes 5.3 % (0.0-10.0); %Neutrophils 67.4 % (42.0-75.0); Hemoglobin 12.7 g/dL (12.0-16.0); Mean Corpuscular HGB CONC 35.6 g/dL (32.0-36.0); Mean Corpuscular Hemoglobin 31.6 pg (27.0-31.0); Mean Corpuscular Volume 88.8 fL (78.0-98.0); Mean Platelet Volume 8.3 fL (7.4-10.4); Platelet Count 252 thou/uL (130-400); RBC Distribution Width 12.3 % (11.5-14.5); Red Blood Cell (RBC) Count 4.02 mill/uL (4.20-5.40); White Blood Cell (WBC) Count 8.8 thou/uL (4.8-10.8)
[2019-10-06 12:16] LABS: ALT (SGPT) 21 U/L (8-55); AST (SGOT) 14 U/L (5-34); Alkaline Phosphatase 62 U/L (40-110); Anion Gap 15 mmol/L (10-20); BUN (Urea Nitrogen) 6 mg/dL (7.0-18.7); Bilirubin, Total 0.4 mg/dL (0.2-1.2); Calc. Creatinine Clearance 0 mL/min (70-130); Calcium 8.6 mg/dL (7.8-10.44); Carbon Dioxide 21 mmol/L (22-29); Chloride 105 mmol/L (98-107); Estimated GFR-MDRD Greater than 90; Globulin 2.5 g/dL (2.4-3.5); Glucose 99 mg/dL (70-105); Protein, Total 6.5 g/dL (6.0-8.3); Sodium 137 mmol/L (136-145)
[2019-10-06 12:37] LABS: Pregnancy Test - Urine (BHCG) POSITIVE (Negative); Pregu Control Background? CLEAR/WHITE (CLR/WHITE); Pregu Control Bar Appear? YES (CONTROL BAR); Specific Gravity 1.013 (1.002-1.036)
[2019-10-06 13:20] LABS: Troponin I Less than 0.010 ng/mL (< 0.028)
== END 2019-10-06 14:30 | disposition home or self-care (01) ==
LOC: ERS 08:42
DX: O99.89 Other specified diseases and conditions complicating pregnancy, childbirth and the puerperium (principal); R07.89 Other chest pain; O23.42 Unspecified infection of urinary tract in pregnancy, second trimester; O10.912 Unspecified pre-existing hypertension complicating pregnancy, second trimester; O99.352 Diseases of the nervous system complicating pregnancy, second trimester; G51.0 Bell's palsy; Z79.82 Long term (current) use of aspirin; Z3A.22 22 weeks gestation of pregnancy
CPT/HCPCS: 36415; 71045; 80053; 81003; 81015; 81025; 83690; 84484; 85025; 85379; 87086; 93005; 96365; J0696

== ENCOUNTER 2019-11-26 11:11 | Emergency (ER) | payer SELFPAY | END 2019-11-26 12:48 | disposition home or self-care (01) | LOC: ERS 11:11 | DX: O99.353 Diseases of the nervous system complicating pregnancy, third trimester (principal); G51.0 Bell's palsy; O16.3 Unspecified maternal hypertension, third trimester; Z79.82 Long term (current) use of aspirin; Z79.84 Long term (current) use of oral hypoglycemic drugs; Z3A.28 28 weeks gestation of pregnancy | CPT/HCPCS: 99283 ==

== ENCOUNTER 2019-12-26 01:15 | Day surgery (SDC) | payer SELFPAY ==
[2019-12-26 01:49] VITALS: BMI 40.4
[2019-12-26] MEDS ORDERED: hydrALAZINE 20 MG/ML VIAL SLOW IVP PRN (02:27)
[2019-12-26] MEDS ORDERED: Promethazine HCl 25 MG/ML VIAL IM SCH (02:41)
[2019-12-26 02:47] LABS: #Eosinphils 0.1 thou/uL (0.0-0.7); #Lymphocytes 2.6 thou/uL (1.20-3.40); #Monocytes 0.7 thou/uL (0.11-0.59); %Basophils 0.2 % (0.0-1.0); %Eosinophils 0.9 % (0.0-10.0); %Lymphocytes 21.1 % (21.0-51.0); %Monocytes 5.9 % (0.0-10.0); %Neutrophils 71.8 % (42.0-75.0); Hemoglobin 12.1 g/dL (12.0-16.0); Mean Corpuscular HGB CONC 34.6 g/dL (32.0-36.0); Mean Corpuscular Hemoglobin 31.1 pg (27.0-31.0); Mean Corpuscular Volume 89.9 fL (78.0-98.0); Platelet Count 276 thou/uL (130-400); RBC Distribution Width 11.8 % (11.5-14.5); White Blood Cell (WBC) Count 12.5 thou/uL (4.8-10.8)
[2019-12-26 03:07] LABS: ALT (SGPT) 24 U/L (8-55); AST (SGOT) 27 U/L (5-34); Albumin 3.5 g/dL (3.5-5.0); Alkaline Phosphatase 99 U/L (40-110); Anion Gap 12 mmol/L (10-20); BUN (Urea Nitrogen) 7 mg/dL (7.0-18.7); Bilirubin, Total 0.3 mg/dL (0.2-1.2); Calc. Creatinine Clearance 230 mL/min (70-130); Calcium 8.5 mg/dL (7.8-10.44); Carbon Dioxide 21 mmol/L (22-29); Chloride 107 mmol/L (98-107); Estimated GFR-MDRD Greater than 90; Globulin 3.1 g/dL (2.4-3.5); Glucose 109 mg/dL (70-105); Potassium 3.7 mmol/L (3.5-5.1); Protein, Total 6.6 g/dL (6.0-8.3); Sodium 136 mmol/L (136-145)
--- NOTE | 2019-12-26 03:25 | PDOC.FPROB ---
FMR OB H&P: HPI - History of Present Illness Chief Complaint: Headache w/ black spots in vision Indentification: 29 yo @ 33 wks History of Present Illness: Pt comes in with complaint of Headache with black spots in vision. Pt states headache started yesterday afternoon and has gotten worse through the night. Pt took tylenol 2 hours ago and didn't notice that it help much. Pt reports sensitivity to light. Pt reports pain as achey. Reports swelling in her hands. Denies any leg swelling. Reports FM. Denies ctx, LOF, or vaginal bleeding. Denies any vaginal discharge or irritation. Denies any urinary sx's. Denies any fever or chills. Denies any chest pain or SOB. Primary Care Physician: [facility] OB H&P: Current - Care : 5 Para: [id number] Gestational age: 33.0 Due date: 02/13/2020 - OB Labs Blood type: unknown RH: unknown Antibody Screen: unknown HIV: unknown RPR: unknown HepBsAg: unknown Quad screen: unknown Gonorrhea: unknown Chlamydia: unknown GBS: unknown FMR OB H&P: History - Past Medical History PMH: cHTN, hx of bells palsy - OB History OB History: 3 at term. 1 delivery. Gestational Diabetes class A2 on Metformin - CONFLICT RESOLUTION PROFESSIONAL History CONFLICT RESOLUTION PROFESSIONAL History: Denies any hx of abnormal pap smears or STD's - Surgical History Sx History: L. Breast surgery for mastitis. - Social History Social History: Denies any smoking, drinking or illicit drug use - Family History Family History: Noncontributory FMR OB H&P: Medications - Current Home Medications: Medication Instructions Recorded Confirmed Type Aspirin 81 mg PO DAILY 12/26/19 12/26/19 History Pnv No.95/Ferrous Fum/Folic AC 1 tab PO DAILY 12/26/19 12/26/19 History [ Caplet] Allergies/Adverse Reactions: Allergies Allergy/AdvReac Type Severity Reaction Status Date / Time No Known Allergies Allergy Verified 12/26/19 01:50 FMR OB H&P: ROS - Review of Systems General: denies: fever/chills, weight/appetite/sleep changes Eyes: reports: vision changes (reports black spots in vision), floaters. denies : double vision, scotomas ENT: denies: nasal congestion Cardiovascular: reports: edema (reports swelling in hands). denies: chest pain Respiratory: denies: cough, congestion, shortness of breath Gastrointestinal: denies: abdominal pain, indigestion, bloating, cramping, nausea, vomiting, diarrhea, constipation Genitourinary (Female): denies: incontinence, dysuria, hematuria, vaginal discharge, vaginal pain, vaginal bleeding, vaginal mass/sore, contractions, vaginal pressure Musculoskeletal: denies: pain, swelling Neurologic: reports: headache Integumentary: denies: itching, rash Psychological: denies: depression, anxiety FMR OB H&P: Vital Signs - Maternal Vital signs: BP 119/57, P 85, O2 sat 100%, BP 136/80 RR 18 - Heart Tones Baseline: 145 Variability: moderate Acceleration: present Deceleration: absent Category: category 1 Traver contractions every: None noted FMR OB H&P: Physical Exam - Physical Exam General: NAD, awake, alert and oriented HEENT: normocephalic and atraumatic, PERRLA, grossly normal vision, grossly normal hearing Neck: supple, FROM, trachea midline Heart: RRR, normal S1/S2, no murmurs/rubs/gallops, pulses present General: CTAB, no respiratory distress, good air movement, no rales/rhonchi, no wheezing, no retractions Abdomen: soft, gravid, non-tender, bowel sound present, no masses, no hernias Musculoskeletal: normal gait and station, FROM in all four extremities Neurological: cranial nerves II through XII intact, sensation to pain,touch and proprioception grossly normal Skin: no rash, good tugor, capillary refill <2 seconds Psychiatric: intact recent and remote memory, good judgement and insight FMR OB H&P: Results - Labs Lab results: Laboratory Results - last 24 hr 12/26/19 12/26/19 02:38 02:38 WBC 12.5 H RBC 3.90 L Hgb 12.1 Hct 35.1 L MCV 89.9 MCH 31.1 H MCHC 34.6 RDW 11.8 Plt Count 276 MPV 8.0 Neutrophils % 71.8 Lymphocytes % 21.1 Monocytes % 5.9 Eosinophils % 0.9 Basophils % 0.2 Neutrophils # 9.0 H Lymphocytes # 2.6 Monocytes # 0.7 H Eosinophils # 0.1 Basophils # 0.0 Sodium 136 Potassium 3.7 Chloride 107 Carbon Dioxide 21 L Anion Gap 12 BUN 7 Creatinine 0.57 L Estimated GFR (MDRD) Greater than 90 Glucose 109 H Calcium 8.5 Total Bilirubin 0.3 AST 27 ALT 24 Alkaline Phosphatase 99 Serum Total Protein 6.6 Albumin 3.5 Globulin 3.1 Albumin/Globulin Ratio 1.1 L FMR OB H&P: A/P Disposition: 29 yo @ 33.0 weeks presents with headache Headache w/ vision changes -Just took tylenol a few hours ago w/o much pain relief. Will give dose of IM phenegran -Pt has hx of burciaga's palsy. None noted at this time cHTN -BP mildly elevated. -having headache sx's as above. Will check Pre-E labs at this time GDM A2 -On metformin -Will check sugar level on CMP. Low or High could be contributing to headache. Dispo: will await lab results. If no sign of Pre-E will likely d/c. Discussed return precautions. Would consider headache ppx and will advise to f/u in [facility] later this week. Discussion: Date/Time: 12/26/19 573 This H&P was discussed with [] and [] who agree with the above documentation and plan. Addendum - Attending - Attending Attestation Date/Time: 12/26/19 [id number] I personally evaluated the patient and discussed the management with Dr. Murguia. I agree with the History, Examination, Assessment and Plan documented above.
--- NOTE | 2019-12-26 04:06 | PDOC.EVN ---
Event Note - Event Note Event Note: Pt got dose of phenergran and reports still having some head pressure. Will give 50 mg benadryll at this time. Addendum - Attending - Attending Attestation Date/Time: 12/26/19 [id number] I personally evaluated the patient and discussed the management with Dr. Murguia. I agree with the History, Examination, Assessment and Plan documented above.
[2019-12-26] MEDS ORDERED: Metoclopramide HCl 10 MG TAB PO SCH (04:15)
[2019-12-26] MEDS ORDERED: diphenhydrAMINE 50 MG CAP PO SCH (04:15)
[2019-12-26] MEDS ORDERED: diphenhydrAMINE 50 MG/ML VIAL IVP SCH (04:45)
[2019-12-26] MEDS ORDERED: Metoclopramide HCl 10 MG/2 ML VIAL IVP SCH (04:45)
[2019-12-26 04:54] LABS: Creatinine, Urine 193.95 mg/dL (47-110)
== END 2019-12-26 05:09 | disposition home or self-care (01) ==
LOC: L&D/OP 01:15
PROVIDERS: ATTEND Obstetrics & Gynecology
DX: O99.89 Other specified diseases and conditions complicating pregnancy, childbirth and the puerperium (principal); R51 Headache; H53.8 Other visual disturbances; O10.913 Unspecified pre-existing hypertension complicating pregnancy, third trimester; O24.415 Gestational diabetes mellitus in pregnancy, controlled by oral hypoglycemic drugs; Z3A.33 33 weeks gestation of pregnancy; Z79.82 Long term (current) use of aspirin
CPT/HCPCS: 36415; 80053; 82570; 84156; 85025; 96372; 99284; J2550; Q0163

== ENCOUNTER 2019-12-28 19:33 | Day surgery (SDC) | payer SELFPAY ==
[2019-12-28] MEDS ORDERED: hydrALAZINE 20 MG/ML VIAL SLOW IVP PRN (19:48)
[2019-12-28 20:25] VITALS: BMI 40.9
--- NOTE | 2019-12-28 20:26 | PDOC.FPROB ---
FMR OB H&P: HPI - History of Present Illness Chief Complaint: Elevated Blood Pressures, Pre-E rule out History of Present Illness: Pt is a 29 yo @ 33.2 wks by LMP c/w 12.2 wk US (TRAVIS: 02/13/20) who presents for severe range bps (160/90, 160/80), headache, and right upper quadrant pain. Reports FM. Denies ctx, LOF, or vaginal bleeding. Denies any vaginal discharge or irritation. Denies any urinary sx's. Denies any fever or chills. Denies any chest pain or SOB. She was here 4 days ago with a complaint of Headache with black spots in vision. Pt states headache started 12/24/19 and was worse through the night. Pt took tylenol 2 hours prior to arrival on 12/25/2019 and didn't notice that it help much. Pt reported sensitivity to light, pain that was achey, and swelling in her hands. Denied any leg swelling. Primary Care Physician: LU Travis FMR OB H&P: Current - Care : 5 Para: 3104 Gestational age: 33.2 Due date: 02/13/20 Dating Criteria: LMP c/w 12.2 wk US - OB Labs Blood type: B RH: positive Antibody Screen: negative RPR: negative HepBsAg: negative Rubella: immune Quad screen: negative Gonorrhea: negative Chlamydia: negative Pap Smear: 07/29/2019 NILM 3 hour GTT: 2H: F- 93, 1H- 154, 2H- 118 A1c: 5.9% GBS: unknown H&H: 12.3/34.8 Platelets: 268 Additional labs: Hep C: Neg FMR OB H&P: History - Past Medical History PMH: Obesity - OB History OB History: Obesity (BMI 41), cHTN, E. coli UTI 1T (treated, SARAH -), Grandmultiparity Previous : A1GDM, hx of Pre-E with last , GBS infection in 3rd , Hx of Cleft lip in 1st 3 at term. 1 delivery. 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: 07/29/19- NILM - Surgical History Sx History: Breast Surgery 2/2 Mastitis - Social History Social History: Denies any tobacco, alcohol, or illicit drug use - Family History Family History: HTN, DM FMR OB H&P: Medications - Current Home Medications: Medication Instructions Recorded Confirmed Type Aspirin 81 mg PO DAILY 12/26/19 12/26/19 History Pnv No.95/Ferrous Fum/Folic AC 1 tab PO DAILY 12/26/19 12/26/19 History [ Caplet] Allergies/Adverse Reactions: Allergies Allergy/AdvReac Type Severity Reaction Status Date / Time No Known Allergies Allergy Verified 12/28/19 20:21 FMR OB H&P: Vital Signs - Maternal Vital signs: HR:87 T:98.8 BP: 130/80 - Heart Tones Baseline: 140 Variability: moderate Acceleration: present Deceleration: absent Category: category 1 FMR OB H&P: Physical Exam - Physical Exam General: NAD, awake, alert and oriented HEENT: normocephalic and atraumatic, PERRLA, EOMI, MMM, conjunctiva clear, no scleral icterus, normal nasal mucosa, oropharynx clear Neck: supple, no LAD Heart: RRR, normal S1/S2, no murmurs/rubs/gallops, pulses present, no edema General: CTAB, no respiratory distress, good air movement, no rales/rhonchi, no wheezing, no retractions Abdomen: soft, gravid, bowel sound present Deviation from normal: tender to palpitation in the RUQ Musculoskeletal: pulses present, FROM in all four extremities Neurological: cranial nerves II through XII intact, no focal deficit Skin: no rash, good tugor Lymphatic: no unusual bruising or bleeding, no purpura, no petechia Psychiatric: normal mood and affect FMR OB H&P: A/P - Problem List (1) Status: Acute (2) Chronic hypertension Status: Acute Code(s): I10 - ESSENTIAL (PRIMARY) HYPERTENSION (3) Preeclampsia Status: Acute Code(s): O14.90 - UNSPECIFIED PRE-ECLAMPSIA, UNSPECIFIED TRIMESTER Comment: Pressures remain below severe range on current management. Most BP are 120s-130s systolic with few over 140. She denies headaches, abd pain , changes in vision. Will continue procardia during the 6 week period post . Then will recommend follow up w/PCP for eval and management of possible essential HTN. Ready for dc today (4) Gestational diabetes Status: Chronic Code(s): O24.419 - GESTATIONAL DIABETES MELLITUS IN , UNSP CONTROL Qualifiers: Gestational diabetes mellitus control: diet-controlled Comment: Pt has been tolerating metformin well and accuchecks have been controlled. Continue low carb diet. Follow up outpt for continued medical management. (5) Migraine Status: Resolved Code(s): G43.909 - MIGRAINE, UNSP, NOT INTRACTABLE, WITHOUT STATUS MIGRAINOSUS Comment: Headaches resolved Disposition: Pt is a 29 yo @ 33.2 wks by LMP c/w 12.2 wk US (TRAVIS: 02/13/20) who presents for severe range bps (160/90, 160/80), headache, and right upper quadrant pain. 1. sIUP 33.2 wks by LMP c/w 12.2 wk US * GBS unknown, but h/o of GBS Meningitis in 3 * B+, Ab: Neg * Pap: NILM 07/2019 2. Elevated BP with hx of cHTN, Pre-eclampsia r/o 160/90, 160/80 * BP elevated only over at [facility] when she goes for US. Due to multiple severe range pressures we will admit for observation. * Initially admitted but pressures were wnl so discharged and recommended followup * Pre labs ordered * CBC & CMP wnl * U P/C: 0.15 3. Migraine Bi-temporal Migraine * Given Fioricet by [facility] on 12/21 and has not helped * Given Reglan and Benadryl IV here * Migraine resolved * Recommended discussing prophylaxis 4. A2GDM * Continue home medication: Metformin * fasting and 2H postprandial checks Dispo: Admitted but with normal bp and Migraine resolution will discharge home with interval f/u. Discussion: Date/Time: 12/28/192020 This H&P was discussed with [] and [] who agree with the above documentation and plan. Addendum - Attending - Attending Attestation Date/Time: 12/29/19 1407 I personally evaluated the patient and discussed the management with Dr. Stapleton I agree with the History, Examination, Assessment and Plan documented above with any addition or exceptions noted below.
[2019-12-28 20:28] LABS: #Basophils 0.1 thou/uL (0.0-0.2); #Eosinphils 0.1 thou/uL (0.0-0.7); #Lymphocytes 2.2 thou/uL (1.20-3.40); #Monocytes 0.5 thou/uL (0.11-0.59); #Neutrophils 7.5 thou/uL (1.40-6.50); %Basophils 0.8 % (0.0-1.0); %Eosinophils 0.7 % (0.0-10.0); %Lymphocytes 21.4 % (21.0-51.0); %Monocytes 4.9 % (0.0-10.0); %Neutrophils 72.2 % (42.0-75.0); Hemoglobin 12.3 g/dL (12.0-16.0); Mean Corpuscular HGB CONC 35.3 g/dL (32.0-36.0); Mean Corpuscular Hemoglobin 31.2 pg (27.0-31.0); Mean Corpuscular Volume 88.5 fL (78.0-98.0); Platelet Count 268 thou/uL (130-400); RBC Distribution Width 11.6 % (11.5-14.5); Red Blood Cell (RBC) Count 3.93 mill/uL (4.20-5.40); White Blood Cell (WBC) Count 10.3 thou/uL (4.8-10.8)
[2019-12-28 20:58] LABS: ALT (SGPT) 22 U/L (8-55); AST (SGOT) 25 U/L (5-34); Albumin 3.5 g/dL (3.5-5.0); Alkaline Phosphatase 104 U/L (40-110); Anion Gap 12 mmol/L (10-20); BUN (Urea Nitrogen) 8 mg/dL (7.0-18.7); Bilirubin, Total 0.3 mg/dL (0.2-1.2); Calc. Creatinine Clearance 226 mL/min (70-130); Calcium 8.4 mg/dL (7.8-10.44); Carbon Dioxide 21 mmol/L (22-29); Chloride 106 mmol/L (98-107); Estimated GFR-MDRD Greater than 90; Glucose 136 mg/dL (70-105); Potassium 3.6 mmol/L (3.5-5.1); Protein, Total 6.5 g/dL (6.0-8.3); Sodium 135 mmol/L (136-145)
[2019-12-28 21:03] LABS: Creatinine, Urine 188.83 mg/dL (47-110)
[2019-12-28] MEDS ORDERED: Docusate 100 MG CAP PO PRN (21:17)
[2019-12-28] MEDS ORDERED: Promethazine HCl 25 MG/ML VIAL IM PRN (21:17)
[2019-12-28] MEDS ORDERED: Ondansetron PF 4 MG/2 ML Vial IVP PRN (21:17)
[2019-12-28] MEDS ORDERED: Acetaminophen 500 MG TAB PO SCH (21:30)
[2019-12-28] MEDS ORDERED: diphenhydrAMINE 50 MG CAP PO SCH (21:30)
[2019-12-28] MEDS ORDERED: diphenhydrAMINE 50 MG/ML VIAL IVP PRN (21:44)
[2019-12-28] MEDS: Metoclopramide HCl 10 MG/2 ML VIAL IVP PRN ×2 (21:57→22:29)
[2019-12-28] MEDS ORDERED: Dextrose 50% Abboject 50 ML SYRINGE SLOW IVP PRN (23:30)
[2019-12-28] MEDS ORDERED: Dextrose 5% in Water 1,000 ML IV PRN (23:30)
[2019-12-29] MEDS ORDERED: metFORMIN 500 MG TAB PO SCH (08:00)
[2019-12-29] MEDS ORDERED: Aspirin Chewable 81 MG TAB PO SCH (09:00)
[2019-12-29] MEDS ORDERED: Prenatal Vitamin 1 TAB PO SCH (09:00)
== END 2019-12-29 00:18 | disposition home health service (06) ==
LOC: L&D/OP 19:33
PROVIDERS: ATTEND Family Medicine
DX: O10.913 Unspecified pre-existing hypertension complicating pregnancy, third trimester (principal); O24.415 Gestational diabetes mellitus in pregnancy, controlled by oral hypoglycemic drugs; O99.213 Obesity complicating pregnancy, third trimester; E66.9 Obesity, unspecified; Z3A.33 33 weeks gestation of pregnancy; Z79.84 Long term (current) use of oral hypoglycemic drugs
CPT/HCPCS: 36415; 80053; 82570; 84156; 85025; 96372; 99283; J1200; J2765; Q0163

== ENCOUNTER 2020-01-07 19:02 | Inpatient (IN) | payer OTHER, MEDICAID ==
[2020-01-07 19:53] VITALS: BMI 40.9
--- NOTE | 2020-01-07 20:11 | PDOC.FPROB ---
FMR OB H&P: HPI - History of Present Illness Chief Complaint: Elevated Blood Pressure History of Present Illness: Pt is a 29 yo HF @ 34.5 wks by LMP c/w 12.2 wk US. She stated she had a blood pressure of 164/94 this morning before her PNC visit. there they had a pressure of 177 systolic and on repeat it was 149. She was told to check her pressures 4 times a day and if she had a blood pressure of 160 or higher to come to the ED. She rechecked her blood pressure at 2-3 pm and it was 162/97 and she weight a couple of hours and rechecked it and it was 165/105 at 6 pm. She states during that time she was laying in bed. She endorses good movement. She has a headache, chest tightness, RUQ pain , floaters, edema of the hands and feet, and vomitting. Primary Care Physician: LU Travis FMR OB H&P: Current - Care : 5 Para: 3104 Gestational age: 34.5 Due date: 02/13/2020 Dating Criteria: LMP c/w 12.2 wk US - OB Labs Blood type: B RH: positive Antibody Screen: negative HIV: negative RPR: negative HepBsAg: negative Quad screen: negative Urine drug screen: negative Gonorrhea: negative Chlamydia: negative Pap Smear: 07/29/2019 NILM 3 hour GTT: 2H: F-93, 1H- 154, 2H-118 A1c: 5.9% GBS: unknown H&H: 12.3/34.8 Platelets: 268 FMR OB H&P: History - Past Medical History PMH: Obesity - OB History OB History: Obesity (BMI 41), cHTN, E. coli UTI 1T (treated, SARAH -), Grandmultiparity Previous : A1GDM, hx of Pre-E with last , GBS infection in 3rd , Hx of Cleft lip in 1st 3 at term. 1 delivery. 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 - Family History Family History: HTN, DM FMR OB H&P: Medications - Current Home Medications: Medication Instructions Recorded Confirmed Type Aspirin 81 mg PO DAILY 12/26/19 01/07/20 History Pnv No.95/Ferrous Fum/Folic AC 1 tab PO DAILY 12/26/19 01/07/20 History [ Caplet] Labetalol HCl [Normodyne] 200 mg PO BID 01/07/20 01/07/20 History metFORMIN [Glucophage] 1,000 mg PO BID-WM 01/07/20 01/07/20 History Allergies/Adverse Reactions: Allergies Allergy/AdvReac Type Severity Reaction Status Date / Time No Known Allergies Allergy Verified 01/07/20 19:37 FMR OB H&P: ROS - Review of Systems General: reports: fatigue. denies: fever/chills Eyes: reports: floaters ENT: denies: nasal congestion, rhinorrhea, sore throat Cardiovascular: reports: chest pain (like a pressure without radiation), edema ( hands and feet) Respiratory: denies: cough, congestion, shortness of breath Gastrointestinal: reports: abdominal pain (RUQ pain), nausea, vomiting (with medicine). denies: diarrhea Genitourinary (Female): reports: contractions (2-3 times per day for 1 minute). denies: dysuria, vaginal discharge, vaginal bleeding Musculoskeletal: denies: pain, stiffness Neurologic: reports: headache. denies: numbness, weakness Integumentary: denies: itching, rash Hematologic/Lymphatic: denies: prolonged or excessive bleeding, enlarged lymph nodes FMR OB H&P: Vital Signs - Maternal Vital signs: Vital Signs - First Documented Temp Pulse Resp BP 98.6 F 85 18 153/92 H 01/07/20 19:35 01/07/20 19:35 01/07/20 19:35 01/07/20 19:35 - Heart Tones Baseline: 130 Variability: moderate Acceleration: present Deceleration: absent Category: category 1 FMR OB H&P: Physical Exam - Physical Exam General: NAD HEENT: normocephalic and atraumatic, EOMI, MMM, conjunctiva clear, normal nasal mucosa, oropharynx clear Neck: supple, no LAD Heart: RRR, normal S1/S2, no murmurs/rubs/gallops, pulses present Deviation from normal: 1+ edema, more significant than last admission General: CTAB, no respiratory distress, good air movement, no rales/rhonchi, no wheezing, no retractions Abdomen: soft, gravid, bowel sound present Deviation from normal: TTP in the RUQ Musculoskeletal: pulses present, FROM in all four extremities Neurological: cranial nerves II through XII intact, DTR +2, no clonus, no focal deficit Skin: no rash, good tugor Lymphatic: no unusual bruising or bleeding, no purpura, no petechia Deviation from normal: Depressed mood anxious affect FMR OB H&P: A/P - Problem List (1) Chest pain Current Visit: Yes Status: Acute Code(s): R07.9 - CHEST PAIN, UNSPECIFIED (2) Preeclampsia Current Visit: No Status: Acute Code(s): O14.90 - UNSPECIFIED PRE-ECLAMPSIA , UNSPECIFIED TRIMESTER Comment: Pressures remain below severe range on current management. Most BP are 120s-130s systolic with few over 140. She denies headaches, abd pain, changes in vision. Will continue procardia during the 6 week period post . Then will recommend follow up w/PCP for eval and management of possible essential HTN. Ready for dc today (3) Current Visit: No Status: Acute (4) Migraine Current Visit: No Status: Resolved Code(s): G43.909 - MIGRAINE, UNSP, NOT INTRACTABLE, WITHOUT STATUS MIGRAINOSUS Comment: Headaches resolved (5) Gestational diabetes Current Visit: No Status: Chronic Code(s): O24.419 - GESTATIONAL DIABETES MELLITUS IN , UNSP CONTROL Qualifiers: Gestational diabetes mellitus control: diet-controlled Comment: Pt has been tolerating metformin well and accuchecks have been controlled. Continue low carb diet. Follow up outpt for continued medical management. Disposition: Pt is a 29 yo @ 34.5 wks by LMP c/w 12.2 wk US (TRAVIS: 02/13/20) who presents for severe range bps (162/97, 165/105 recordered at home & PNC sBP of 177 that resolved to 140), headache, and right upper quadrant pain. 1. Elevated BP with hx of cHTN, Pre-eclampsia r/o 162/97, 165/105- taken at home, sBP 177 that resolved to 140 @ PNC * Initially admitted but pressures were wnl * Pre labs ordered * Protein/Creatinine Ratio: 0.27, will collect 24H urine Protein & Creatinine * LFTs are normal as well as platelets * Currently taking Labetolol 100 mg BID * Did not take evening dose * Will give 200 mg daily * BPP ordered 2. sIUP 34.5 wks by LMP c/w 12.2 wk US * GBS unknown, but h/o of GBS Meningitis in 3 * B+, Ab: Neg * Pap: NILM 07/2019 3. Chest Tightness States pain is is like a tightness with no radiation and is constant * EKG ordered 4. Migraine Bi-temporal Migraine * Given Fioricet by [facility] on 12/21 and has not helped * Tried Mag Oxide without relief * Given Reglan and Benadryl IV last visit and Migraine resolved * Given, headache resolved * Recommended discussing prophylaxis 5. A2GDM * Continue home medication: Metformin 1 gm BID * fasting and 2H postprandial checks Dispo: Admit to label [facility] for severe range pressures at PNC and at home for further monitoring of blood pressures. Discussion: Date/Time: 01/07/202010 This H&P was discussed with [] and [] who agree with the above documentation and plan. Addendum - Attending - Attending Attestation Date/Time: 01/08/20 1025 I personally evaluated the patient and discussed the management with the team. I agree with the History, Examination, Assessment and Plan documented above with any addition or exceptions noted below. Patient with BP's as above. She has had varying symptoms per interview. Her headache (which is chronic and was present prior to , but has increased in severity during the ) improved with reglan/benadryl. It is unclear how much of her home labetalol she has taken in the last 1-2 days. On exam she has clear lungs, no clonus, no inc dtr's. One severe (162 systolic) pressure after 4 hours of monitoring. Will restart labetalol at 200 out of concern for bb w/d. PreE workup revealed very borderline p/c. Will admit for observation. UDS in light of previous + cocaine in system. Obtain bpp. Delivery of standard indications.
[2020-01-07 21:11] LABS: #Basophils 0.1 thou/uL (0.0-0.2); #Eosinphils 0.1 thou/uL (0.0-0.7); #Lymphocytes 2.3 thou/uL (1.20-3.40); #Monocytes 0.6 thou/uL (0.11-0.59); %Basophils 1.1 % (0.0-1.0); %Eosinophils 0.7 % (0.0-10.0); %Lymphocytes 23.1 % (21.0-51.0); %Monocytes 5.5 % (0.0-10.0); %Neutrophils 69.6 % (42.0-75.0); Hemoglobin 11.9 g/dL (12.0-16.0); Mean Corpuscular HGB CONC 35.5 g/dL (32.0-36.0); Mean Corpuscular Hemoglobin 30.6 pg (27.0-31.0); Mean Corpuscular Volume 86.3 fL (78.0-98.0); Mean Platelet Volume 8.2 fL (7.4-10.4); Platelet Count 286 thou/uL (130-400); RBC Distribution Width 11.6 % (11.5-14.5); Red Blood Cell (RBC) Count 3.89 mill/uL (4.20-5.40); White Blood Cell (WBC) Count 10.1 thou/uL (4.8-10.8)
[2020-01-07 21:14] LABS: Creatinine, Urine 107.05 mg/dL (47-110)
[2020-01-07 21:31] LABS: ALT (SGPT) 25 U/L (8-55); AST (SGOT) 32 U/L (5-34); Albumin 3.4 g/dL (3.5-5.0); Alkaline Phosphatase 125 U/L (40-110); Anion Gap 12 mmol/L (10-20); BUN (Urea Nitrogen) 6 mg/dL (7.0-18.7); Bilirubin, Total 0.2 mg/dL (0.2-1.2); Calc. Creatinine Clearance 251 mL/min (70-130); Calcium 8.6 mg/dL (7.8-10.44); Carbon Dioxide 21 mmol/L (22-29); Chloride 107 mmol/L (98-107); Estimated GFR-MDRD Greater than 90; Globulin 3.1 g/dL (2.4-3.5); Glucose 88 mg/dL (70-105); Potassium 3.8 mmol/L (3.5-5.1); Protein, Total 6.5 g/dL (6.0-8.3); Sodium 136 mmol/L (136-145)
[2020-01-07] MEDS ORDERED: Metoclopramide HCl 10 MG/2 ML VIAL IVP SCH (22:00)
[2020-01-07] MEDS ORDERED: diphenhydrAMINE 50 MG/ML VIAL IVP SCH (22:00)
[2020-01-07] MEDS ORDERED: Labetalol 100 MG TAB PO SCH (22:45)
[2020-01-08] MEDS ORDERED: Acetaminophen 500 MG TAB PO PRN (00:09)
[2020-01-08] MEDS ORDERED: Docusate 100 MG CAP PO PRN (00:09)
[2020-01-08] MEDS ORDERED: Promethazine HCl 25 MG/ML VIAL IM PRN ×2 (00:09→13:31)
[2020-01-08] MEDS ORDERED: Ondansetron PF 4 MG/2 ML Vial IVP PRN ×2 (00:09→13:31)
[2020-01-08 07:57] LABS: Hemoglobin 11.9 g/dL (12.0-16.0); Mean Corpuscular HGB CONC 34.8 g/dL (32.0-36.0); Mean Corpuscular Hemoglobin 29.9 pg (27.0-31.0); Platelet Count 300 thou/uL (130-400); RBC Distribution Width 11.7 % (11.5-14.5); Red Blood Cell (RBC) Count 3.99 mill/uL (4.20-5.40); White Blood Cell (WBC) Count 11.2 thou/uL (4.8-10.8)
--- NOTE | 2020-01-08 08:03 | ULT ---
NONSTRESS BIOPHYSICAL PROFILE: HISTORY: -induced hypertension. TECHNIQUE: Nonstress biophysical profile was performed. FINDINGS: Single intrauterine gestation. Presentation: Breech. Amniotic fluid index: 9.5 cm. heart tones: 144 beats per minute. Placenta: Anterior. Cervix: 3.7 cm. Nonstress biophysical profile: tone 2. breathing 2. movements 2. Amniotic fluid 2. Total score 8 out of 8. IMPRESSION: Nonstress biophysical profile with a total score 8 out of 8. Transcribed Date/Time: 01/08/2020 8:40 AM
[2020-01-08 08:21] LABS: ALT (SGPT) 26 U/L (8-55); AST (SGOT) 39 U/L (5-34); Albumin 3.3 g/dL (3.5-5.0); Alkaline Phosphatase 122 U/L (40-110); Anion Gap 13 mmol/L (10-20); BUN (Urea Nitrogen) 7 mg/dL (7.0-18.7); Bilirubin, Total 0.3 mg/dL (0.2-1.2); Calc. Creatinine Clearance 234 mL/min (70-130); Calcium 8.7 mg/dL (7.8-10.44); Carbon Dioxide 22 mmol/L (22-29); Chloride 106 mmol/L (98-107); Estimated GFR-MDRD Greater than 90; Globulin 3.1 g/dL (2.4-3.5); Glucose 116 mg/dL (70-105); Potassium 3.7 mmol/L (3.5-5.1); Protein, Total 6.4 g/dL (6.0-8.3); Sodium 137 mmol/L (136-145)
--- NOTE | 2020-01-08 08:31 | PDOC.OBAPN ---
FMR OB AP PN: Sub - Interval History Hospital Day: 1 Chief Complaint: Elevated BP's Indentification: 29 year old at 34.6 wks Interval History: Severe headache again this morning, BP's high 150's. FMR OB AP PN: Obj - Maternal Vital signs: BP's 130/68-194/93, around 11:15, BP's started spiking in severe range and not responsive to PRN medications Afebrile Please see [facility] documentation for full vitals - Urine output I&O: Not documented - Heart Tones Baseline: 145 Variability: moderate Acceleration: present Deceleration: absent [place] contractions every: None FMR OB AP PN: Exam - Physical Exam General: NAD, awake, alert and oriented HEENT: MMM, grossly normal vision, grossly normal hearing Heart: RRR, pulses present, no edema General: CTAB, no respiratory distress Abdomen: soft, gravid, non-tender Musculoskeletal: pulses present, FROM in all four extremities Neurological: no clonus, no tremor, no focal deficit Skin: no rash, capillary refill <2 seconds Psychiatric: intact recent and remote memory Deviation from normal: anxious about current situation FMR OB AP PN: Data - Labs Lab results: Laboratory Results - last 24 hr 01/07/20 01/07/20 01/07/20 20:47 21:01 21:01 WBC 10.1 RBC 3.89 L Hgb 11.9 L Hct 33.6 L MCV 86.3 MCH 30.6 MCHC 35.5 RDW 11.6 Plt Count 286 MPV 8.2 Neutrophils % 69.6 Lymphocytes % 23.1 Monocytes % 5.5 Eosinophils % 0.7 Basophils % 1.1 H Neutrophils # 7.0 H Lymphocytes # 2.3 Monocytes # 0.6 H Eosinophils # 0.1 Basophils # 0.1 Sodium 136 Potassium 3.8 Chloride 107 Carbon Dioxide 21 L Anion Gap 12 BUN 6 L Creatinine 0.53 L Estimated GFR (MDRD) Greater than 90 Glucose 88 POC Glucose Calcium 8.6 Total Bilirubin 0.2 AST 32 ALT 25 Alkaline Phosphatase 125 H Serum Total Protein 6.5 Albumin 3.4 L Globulin 3.1 Albumin/Globulin Ratio 1.1 L U Random Total Protein 29 H Urine Creatinine 107.05 01/08/20 01/08/20 01/08/20 01:09 07:45 07:45 WBC 11.2 H RBC 3.99 L Hgb 11.9 L Hct 34.3 L MCV 86.0 MCH 29.9 MCHC 34.8 RDW 11.7 Plt Count 300 MPV 8.0 Neutrophils % Lymphocytes % Monocytes % Eosinophils % Basophils % Neutrophils # Lymphocytes # Monocytes # Eosinophils # Basophils # Sodium 137 Potassium 3.7 Chloride 106 Carbon Dioxide 22 Anion Gap 13 BUN 7 Creatinine 0.57 L Estimated GFR (MDRD) Greater than 90 Glucose 116 H POC Glucose 93 Calcium 8.7 Total Bilirubin 0.3 AST 39 H ALT 26 Alkaline Phosphatase 122 H Serum Total Protein 6.4 Albumin 3.3 L Globulin 3.1 Albumin/Globulin Ratio 1.1 L U Random Total Protein Urine Creatinine FMR OB AP PN: A/P - Problem List (1) Chronic hypertension affecting Current Visit: Yes Status: Acute Code(s): O10.919 - UNSP PRE-EXISTING HTN COMP , UNSP TRIMESTER (2) Gestational diabetes Current Visit: No Status: Chronic Code(s): O24.419 - GESTATIONAL DIABETES MELLITUS IN , UNSP CONTROL Qualifiers: Gestational diabetes mellitus control: diet-controlled Comment: Pt has been tolerating metformin well and accuchecks have been controlled. Continue low carb diet. Follow up outpt for continued medical management. (3) Migraine Current Visit: No Status: Resolved Code(s): G43.909 - MIGRAINE, UNSP, NOT INTRACTABLE, WITHOUT STATUS MIGRAINOSUS Comment: Headaches resolved (4) Pre-eclampsia, severe Current Visit: Yes Status: Acute Code(s): O14.10 - SEVERE PRE-ECLAMPSIA, UNSPECIFIED TRIMESTER Disposition: 29 year old at 34.6 wks by LMP/12.2 wk sono Chronic hypertension affecting with superimposed pre-E severe features - Despite increase in labetolol from 100 mg BID to 200 mg BID and PRN medications, patient continues to have severely elevated BP's - Patient given betamethasone x1 at 8:45 this AM upon my arrival to L&D. Her BP' s at that time were upper 150's. Concern that she would need early delivery, so decision made to give betamethasone. BP's nearly 45 minutes later were repetitively in severe range, requiring multiple doses of PRN medications - COVID swab done in anticipation of early delivery via C/S for transverse, back up presentation in setting of cHTN with severe range pressures, uncontrolled - Mg started due to persistently elevated BP's despite increase in cHTN medications and PRN medications; started for seizure ppx - Urine output not documented overnight - CMP with slight increase in AST this AM, although not 2x upper limits of normal - CBC appropriate - Urine protein/creatinine ratio 0.277, 24h urine protein was started, but due to persistently elevated BP and gestation >34 weeks, this will not be completed - Patient will undergo C/S due to transverse, back down presentation, she has signed consents - Patient with severe headache this AM, this did resolve with 2 doses migraine protocol A2GDM - BG this AM 116 - On metformin 1000 mg BID - Will get fasting BG in AM Migraines - Patient's headache improved with migraine protocol Transverse, back down presentation - Prep for pLTCS for presentation in setting of cHTN with superimposed pre -E severe features Dispo: Patient to proceed with C/S for cHTN with severe range pressures uncontrolled with increase in home medications and PRN medications. Mg started. transverse back down presentation which is the reason for C/S. Discussed with patient. While she was upset that she would have to undergo a C/S, she did give consent. Risk of infection, retained placental products, hemorrhage, and possible need for hysterectomy were discussed with patient. Discussion: Date/Time: 01/08/20 8643 This H&P was discussed with Dr. Johansen who agrees with the above documentation and plan. Signature: Alanna Myers DO PGY-3 Addendum - Attending - Attending Attestation Date/Time: 01/08/20 5364 I personally evaluated the patient and discussed the management with Dr. Myers this morning. I agree with the History, Examination, Assessment and Plan documented above with any addition or exceptions noted below.
[2020-01-08] MEDS: Labetalol 100 MG TAB PO SCH ×2 (08:34→21:15)
[2020-01-08] MEDS: Prenatal Vitamin 1 TAB PO SCH (08:34)
[2020-01-08] MEDS ORDERED: diphenhydrAMINE 50 MG/ML VIAL IVP PRN ×3 (08:36→13:31)
[2020-01-08] MEDS ORDERED: Betamet Acet/Betamet Na Ph 30 MG/5 ML VIAL IM SCH (09:00)
[2020-01-08] MEDS ORDERED: Aspirin Chewable 81 MG TAB PO SCH (09:00)
[2020-01-08] MEDS: Metoclopramide HCl 10 MG/2 ML VIAL IVP PRN ×2 (09:01→09:39)
[2020-01-08] MEDS: metFORMIN 500 MG TAB PO SCH (09:18)
[2020-01-08] MEDS: hydrALAZINE 20 MG/ML VIAL SLOW IVP PRN ×2 (11:19→12:39)
[2020-01-08] MEDS ORDERED: Magnesium Sulfate 20 gm/500 ml 20 GM/500 ML BAG ONE (11:37)
[2020-01-08] MEDS ORDERED: Calcium Gluc 4.6 MEQ/10 ML (100 MG/ML) SLOW IVP PRN (11:41)
[2020-01-08] MEDS ORDERED: Bicitra 30 ML UDCUP PO SCH (11:45)
[2020-01-08] MEDS ORDERED: Magnesium Sulfate 20 GM/WATER 500 ML BAG IVPB SCH (11:45)
[2020-01-08 11:46] LABS: Amphetamine Not Detected (NotDetected); Barbiturates Screen Not Detected (NotDetected); Benzodiazepine Screen Not Detected (NotDetected); Cocaine Metabolite Screen Not Detected (NotDetected); Medtox Control Line Valid? VALID (VALID); Medtox Reader # READER 1; Methadone Not Detected (NotDetected); Methamphetamine Not Detected (NotDetected); Opiate Screen Not Detected (NotDetected); Oxycodone Screen Not Detected (NotDetected); Phencyclidine (PCP) Not Detected (NotDetected); THC/Cannabinoid Screen Not Detected (NotDetected); Tricyclic Screen Not Detected (NotDetected)
[2020-01-08] MEDS: Magnesium Sulfate 20 gm/500 ml 20 GM/500 ML BAG IVPB SCH ×2 (11:50→19:47)
[2020-01-08] MEDS ORDERED: CEFAZOLIN 2 GM in Premix Bag 1 BAG IVPB SCH (12:00)
[2020-01-08] MEDS: Bicitra 30 ML UDCUP ONE ×2 (12:44→12:57)
[2020-01-08] MEDS ORDERED: hydrALAZINE 20 MG/ML VIAL ONE (12:49)
[2020-01-08] MEDS ORDERED: Oxytocin 10 UNITS/ML VIAL ONE (13:12)
[2020-01-08] MEDS ORDERED: PHENYLEPHRINE-NS 100 MCG/ML 10 ML SYRINGE ONE (13:12)
[2020-01-08] MEDS ORDERED: MORPHINE 5 MG/10 ML PF VIAL ONE ×2 (13:12→17:49)
--- NOTE | 2020-01-08 13:13 | PDOC.BPN ---
- Brief Progress Note Called by Dr Myers for persistent, severe range Blood Pressure despite higher doses of labetalol, and additional doses of hydralazine, consistent with Pre-E with severe features superimposed on cHTN. ultrasound confirms transverse lie. Discussed the indication for delivery, and particularly delivery, as well ask risks of , such as blood loss, hysterectomy and with Deloris. She was afraid and felt trapped by the plan. I acknowledged these feelings. She was not comfortable giving consent at that time. She wanted to discuss with her , which was understandable. Her came and after they discussing together privately, they consented to delivery. I followed up to answer any questions. All concerns addressed. Anesthesia notified.
[2020-01-08] MEDS ORDERED: Meperidine HCl/PF 25 MG/ML VIAL SLOW IVP PRN ×2 (13:30→18:11)
[2020-01-08] MEDS ORDERED: L&D-Morphine 4 MG/ML VIAL SLOW IVP PRN (13:30)
[2020-01-08] MEDS ORDERED: Ketorolac Tromethamine 30 MG/ML VIAL IVP SCH (13:30)
[2020-01-08] MEDS ORDERED: Ondansetron HCl/PF 4 MG/2 ML Vial IVP PRN (13:30)
[2020-01-08] MEDS ORDERED: HYDROmorphone 2 MG/ML VIAL SLOW IVP PRN (13:30)
[2020-01-08] MEDS ORDERED: Naloxone HCl 0.4 mg/ml Vial IV PRN (13:31)
[2020-01-08] MEDS ORDERED: Naloxone HCl 0.4 mg/ml Vial IVP PRN ×2 (13:31)
[2020-01-08] MEDS ORDERED: Promethazine HCl 25 MG SUPP PR PRN (13:31)
[2020-01-08] MEDS ORDERED: Communication Order-Pharmacy FS SCH (13:45)
[2020-01-08 14:17] LABS: Syphilis Antibody Nonreactive (Nonreactive); Syphilis Antibody Index 0.03 S/CO (<1.00 Non-Reactive)
[2020-01-08 14:18] LABS: HBSAg Index 0.18 S/CO (0-0.99); Hep B Surf Ag Non-Reactive S/CO (NonReactive)
[2020-01-08] MEDS ORDERED: Ondansetron PF 4 MG/2 ML Vial ONE (14:23)
[2020-01-08] MEDS ORDERED: Ketorolac Tromethamine 30 MG/ML VIAL ONE (14:23)
[2020-01-08 14:35] LABS: Actual Bicarbonate (HCO3v) 24 mEq/L (22-28); Base Excess -3.3 mEq/L (-2.0 to +3.0); pH (Cord, venous) 7.29 (7.32-7.43)
[2020-01-08 14:37] LABS: Base Excess (BEa) -4.2 mEq/L (-2.0 to +3.0)
[2020-01-08] MEDS ORDERED: Fentanyl 100 MCG/2 ML VIAL ONE ×2 (14:43→14:50)
[2020-01-08] MEDS ORDERED: Midazolam HCl 2 mg/2 ml Vial ONE (14:51)
[2020-01-08] MEDS ORDERED: Adacel (T-DAP) 0.5 ML SYRINGE IM ONE (15:25)
[2020-01-08] MEDS ORDERED: Lanolin Ointment 7 GM TUBE TOP PRN (15:25)
[2020-01-08] MEDS ORDERED: Acetaminophen 325 MG TAB PO PRN (15:25)
[2020-01-08] MEDS ORDERED: hydrALAZINE 20 MG/ML VIAL SLOW IVP PRN (15:25)
--- NOTE | 2020-01-08 15:42 | PDOC.OPDEL ---
OB Operative/Delivery Note Delivery Dr/Surgeon: Dr. Ivory Assist: Dr. Barrett, Attending Dr. Johansen Pre-Delivery Diagnosis: other (Pre-E with severe features, Malpresentation) Procedure/Post Delivery Dx: primary low transverse CS Weeks gestation: 34 (6) Anesthesia: spinal - Findings A Sex: female - 1 min: 5 - 5 min: 9 (Placed on CPAP and trasnfered to NICU) - Additional Findings/Plan Placenta delivered: manual removal findings: other (low transverse hysterotomy with operable vertical extension) Estimated blood loss: QBL: 365 Compilations/Other Findings: Date of Procedure: 01/08/2020 Resident Surgeon: Dr. Kam Ivory Pillow Cleaner Surgeon: Dr. Tej Barrett Attending Surgeon: Dr. Sanjiv Johansen Procedure: Repeat low transverse caesarean section Preoperative Diagnosis: 1)Pre-term intrauterine 2)Pre-E with severe features 3)Malpresentation 4)Chronic Hypertension 5) A1GDM Postoperative Diagnosis: 1)Same as above Anesthesia: spinal Indications: The patient is a 29 year old female at 34.6 weeks gestation who presents for a repeat scheduled . Procedure in Detail: After risks, benefits, and alternatives were explained to the patient, she gave informed consent. Pre-operative antibiotics included Cefazolin 2 gram IV. The patient was taken to the operating room and spinal anesthesia was initiated. She was placed in the supine position with a left tilt and prepped and draped in usual sterile fashion. A Pfannenstiel skin incision was made with a scalpel and Ramon-García incision carried down to the level of the fascia which was sharply nicked. The fascial cut was extended bilaterally with Bonneau sissors. The inferior and superior edges of the cut fascial edges were elevated with Colton clamps and the underlying rectus muscles were bluntly dissected free. The recti were divided digitally and retracted manually. The peritoneum was entered sharply and retracted manually. Bladder blade was placed. A low transverse score was made with the scalpel and the uterus was entered in the midline with the scalpel. Clear fluid was seen. The hysterotomy was extended cranial-caudally manually. The was noted to be back down transverse position. Feet were individually delivered, rotated to back up, arms delivered individually, head was flexed and was noted to have difficulty passing through hysterotomy. Incision was extended vertically at the midline with bandage scissors and the infant was easily delivered. Nuchal cord times x1. Cord clamped and cut and grossly normal female was handed to waiting nurse. Cord blood was obtained. Cord section was obtained. Placenta was manually extracted, found to be intact with 3 vessel cord and discarded. The uterus was externalized and the endometrium was curetted with a dry lap. The bladder blade was replaced and the vertical incision of the uterus was closed in 3 layers. Myometrium was closed with 2 running locking sutures using 1-0 monocryl, followed by a running non-locking #1 Chromic running suture. The transverse incision was closed with a running locking 1-0 monocryl stitch. The abdomen was inspected and suctioned free of clots. The uterus was internalized. A single bleeder along the left inferior edge of the transverse incision was addressed with a 3-0 Vicryl figure of 8 stitch and was subsequently hemostatic. Upon reinspection, the hysterotomy was noted to be hemostatic. The rectus muscle was inspected for any bleeding, and noted to be hemostatic. The fascia was closed with a running non-locking 0-PDS suture. The subcutaneous tissue was closed with 3-0 chromic gut and was inspected and found that there were no bleeders. The skin was approximated with salty and a wound vac dressing was placed. All counts were correct. The patient tolerated the procedure well and was taken to the recovery room in stable condition. Quantified Blood Loss: 365 ml Complications: None Specimens: Cord blood and gas sent to lab, placenta sent for path Findings: Grossly normal female with Apgars of 5 and 9. Grossly normal placenta with 3 vessel cord discarded. Drains: Pina to gravity draining clear urine Post delivery plan: routine recovery
[2020-01-08] MEDS ORDERED: NS / Oxytocin 40 units/1000ml 1,000 ML ONE (15:54)
[2020-01-08] MEDS ORDERED: Meperidine HCl/PF 25 MG/ML VIAL ONE ×2 (16:12→17:35)
--- NOTE | 2020-01-08 18:53 | PDOC.PP ---
Post Progress Note Post Day #: 0 Subjective: Doing well, pain well-controlled, lower abd soreness. HEWITT improved, vision changes resolved. RUQ pain resolved. Hungry, tired, but in good spirits. PO intake tolerated: no (NPO) Flatus: no Ambulation: no Vital Signs (12 hours) Pulse BP 01/08/20 12:39 87 162/96 H 01/08/20 11:19 85 176/86 H 01/08/20 08:34 84 157/104 H Weight Weight 101.605 kg - Physical Examination General: NAD (resting comfortably) Cardiovascular: no m/r/g, RRR Respiratory: clear to auscultation bilaterally, non-labored breathing Abdominal: + bowel sounds, no distention, appropriately TTP (wound vac in place , dressing c/d/i) Fundus firm & at: Umbilicus Extremities: negative homans (B) (2 BL brachial and patellar) Skin: CS incision dry & intact Result Diagrams: 01/08/20 07:45 01/08/20 07:45 Additional Labs: Post Labs Blood Type B POSITIVE 01/08/20 13:25 Hep Bs Antigen Non-Reactive S/CO (NonReactive) 01/08/20 13:25 (1) delivery delivered Code(s): O82 - ENCOUNTER FOR DELIVERY WITHOUT INDICATION Status: Acute - Assessment/Plan 29 year old at 34.6 wks by LMP/12.2 wk sono s/p pLTCS @1419 on 01/07 for cHTN with superimposed pre-E with severe features and breech presentation. #S/p pLTCS - 4 hours post op note - doing well, pain controlled, drowsy but in good spirits, lochia as expected - cont routine care #Chronic hypertension affecting with superimposed pre-E severe features - Symptoms are resolving post delivery - BPs all WNL since delivery - on Mag 24 hours post delivery, started 1430 on 01/07 - reflexes 2 throughout, UOP approx 100cc/hr - will cont to monitor with q4h mag checks #A2GDM - On metformin 1000 mg BID - post delivery Dispo: Cont routine post care, mag checks, cont summers and monitor BPs. Addendum - Attending - Attending Attestation Date/Time: 01/08/202120 I personally evaluated the patient and discussed the management with the team. I agree with the History, Examination, Assessment and Plan documented above with any addition or exceptions noted below.
[2020-01-08] MEDS: Acetaminophen 325 MG TAB PO PRN (19:46)
[2020-01-08] MEDS: Docusate Calcium (SURFAK) 240 MG CAP PO SCH (21:15)
[2020-01-08] MEDS: Ketorolac Tromethamine 30 MG/ML VIAL IVP PRN (22:55)
--- NOTE | 2020-01-09 00:59 | PDOC.BPN ---
- Brief Progress Note Mag Check S: Resting comfortably, was able to take the wheelchair and see baby in NICU, she is doing well. Denies SOB, CP, vision changes. HEWITT improved, no RUQ pain. O: BP 130/61 - 121/63 General: Resting comfortably, NAD, in good spirits Resp: CTAB Cards: RRR no murmurs Ext: No edema, reflexes +2 BL patellar and brachial, no clonus : Summers with UOP >30cc/hr A/P: 29 year old at 34.6 wks by LMP/12.2 wk sono s/p pLTCS @1419 on 01/07 for cHTN with superimposed pre-E with severe features and breech presentation. #S/p pLTCS - doing well, pain controlled, in good spirits, lochia as expected - cont routine care #Chronic hypertension affecting with superimposed pre-E severe features - Symptoms cont to resolve post delivery - BPs all WNL since delivery, cont to monitor - on Mag 24 hours post delivery, started 1430 on 01/07 - reflexes +2 throughout, adequate UOP - will cont to monitor with q4h mag checks #A2GDM - On metformin 1000 mg BID - post delivery Dispo: Cont routine post care, mag checks, cont summers and monitor BPs.
[2020-01-09] MEDS ORDERED: HYDROcodone/Acetaminophen 5/325 mg Tablet PO PRN (01:45)
[2020-01-09] MEDS: metFORMIN 500 MG TAB PO SCH ×2 (04:26→23:17)
[2020-01-09] MEDS: Ibuprofen 800 MG TAB PO SCH ×4 (04:27→21:11)
--- NOTE | 2020-01-09 04:40 | PDOC.BPN ---
<Lavon Stapleton - Last Filed: 01/09/20 04:38> - Brief Progress Note Mag Check S: Resting comfortably, Denies SOB, CP, vision changes. HEWITT improved, no RUQ pain. O: BP 111/60 -> 132/56 General: Resting comfortably, NAD Resp: CTAB Cards: RRR no murmurs Ext: No edema, reflexes +2 BL patellar and brachioradialus, no clonus : Summers with UOP 50cc/hr A/P: 29 year old at 34.6 wks by LMP/12.2 wk sono s/p pLTCS @1419 on 01/07 for cHTN with superimposed pre-E with severe features and breech presentation. #S/p pLTCS - doing well, pain controlled, in good spirits, lochia as expected - cont routine care #Chronic hypertension affecting with superimposed pre-E severe features - Symptoms cont to resolve post delivery - BPs WNL since delivery, cont to monitor - on Mag 24 hours post delivery, started 1430 on 01/07 - reflexes +2 throughout, adequate UOP - will cont to monitor with q4h mag checks #A2GDM - On metformin 1000 mg BID - post delivery Dispo: Cont routine post care, mag checks, cont summers and monitor BPs. <Miguel Saleh - Last Filed: 01/09/20 05:11> Addendum - Attending - Attending Attestation Date/Time: 01/09/20 0510 Can likely hold the metformin pending pp testing. Continue mg.
[2020-01-09] MEDS: Magnesium Sulfate 20 gm/500 ml 20 GM/500 ML BAG IVPB SCH (04:48)
[2020-01-09] MEDS: Ketorolac Tromethamine 30 MG/ML VIAL IVP PRN (04:48)
[2020-01-09 05:59] LABS: Hemoglobin 10.9 g/dL (12.0-16.0); Mean Corpuscular HGB CONC 34.3 g/dL (32.0-36.0); Mean Corpuscular Hemoglobin 29.9 pg (27.0-31.0); Mean Corpuscular Volume 87.2 fL (78.0-98.0); Mean Platelet Volume 8.2 fL (7.4-10.4); Platelet Count 295 thou/uL (130-400); RBC Distribution Width 11.8 % (11.5-14.5); Red Blood Cell (RBC) Count 3.64 mill/uL (4.20-5.40); White Blood Cell (WBC) Count 13.7 thou/uL (4.8-10.8)
[2020-01-09 06:19] LABS: ALT (SGPT) 24 U/L (8-55); AST (SGOT) 41 U/L (5-34); Alkaline Phosphatase 104 U/L (40-110); Anion Gap 14 mmol/L (10-20); BUN (Urea Nitrogen) 7 mg/dL (7.0-18.7); Bilirubin, Total 0.3 mg/dL (0.2-1.2); Calc. Creatinine Clearance 226 mL/min (70-130); Calcium 7.4 mg/dL (7.8-10.44); Carbon Dioxide 20 mmol/L (22-29); Chloride 105 mmol/L (98-107); Estimated GFR-MDRD Greater than 90; Globulin 2.8 g/dL (2.4-3.5); Glucose 105 mg/dL (70-105); Protein, Total 5.8 g/dL (6.0-8.3); Sodium 135 mmol/L (136-145)
--- NOTE | 2020-01-09 07:48 | PDOC.PP ---
Post Progress Note Post Day #: 1 Subjective: Patient doing well. Intermittent headaches and generally not feeling well 2/2 Mg. Pain well controlled currently. She has not required hydrocodone. Wound vac in place. Patient has been to see infant in NICU. PO intake tolerated: no (has not attempted) Flatus: yes Ambulation: no Vital Signs (12 hours) Pulse BP 01/09/20 04:26 98 121/63 01/08/20 21:15 98 121/63 Weight Weight 101.605 kg - Physical Examination General: NAD Cardiovascular: RRR Deviation from normal: 2/6 systolic murmur Respiratory: clear to auscultation bilaterally, non-labored breathing Abdominal: + bowel sounds, lochia (less than period), no distention, appropriately TTP Fundus firm & at: below umbilicus Skin: no rash Deviation from normal: wound vac in place clean, dry Neurological: no gross focal deficits Psychiatric: A&Ox3, normal affect Deviation from normal: DTR's 2+ upper extremities, 1+ lower extremities Result Diagrams: 01/09/20 05:40 01/09/20 05:40 Additional Labs: Post Labs Blood Type B POSITIVE 01/08/20 13:25 Hep Bs Antigen Non-Reactive S/CO (NonReactive) 01/08/20 13:25 (1) Chronic hypertension affecting Code(s): O10.919 - UNSP PRE-EXISTING HTN COMP , UNSP TRIMESTER Status : Acute (2) Gestational diabetes Code(s): O24.419 - GESTATIONAL DIABETES MELLITUS IN , UNSP CONTROL Status: Chronic Qualifiers: Gestational diabetes mellitus control: diet-controlled Comment: Pt has been tolerating metformin well and accuchecks have been controlled. Continue low carb diet. Follow up outpt for continued medical management. (3) Migraine Code(s): G43.909 - MIGRAINE, UNSP, NOT INTRACTABLE, WITHOUT STATUS MIGRAINOSUS Status: Resolved Comment: Headaches resolved (4) Pre-eclampsia, severe Code(s): O14.10 - SEVERE PRE-ECLAMPSIA, UNSPECIFIED TRIMESTER Status: Acute (5) S/P primary low transverse Code(s): Z98.891 - HISTORY OF UTERINE SCAR FROM PREVIOUS SURGERY Status: Acute - Assessment/Plan 29 year old at 34.6 wks by LMP/12.2 wk sono s/p pLTCS @1419 on 01/07 for cHTN with superimposed pre-E with severe features and transverse presentation. s/p pLTCS for cHTN w/ superimposed pre-E severe features and transverse presentation - Meeting PP milestones - Doing well, pain controlled - Cont routine care - Lochia minimal - B+, rubella immune Chronic hypertension affecting with superimposed pre-E severe features - Symptoms are resolving post delivery - BPs all WNL since delivery; will decrease BP medication dose to what it was prior to admission. Patient not on any BP medications prior to . Will continue labetolol 100 mg BID. - On Mag 24 hours post delivery, started 1430 on 01/07 - Reflexes 2 throughout, UOP approx 100cc/hr overnight, urine output has been 40 's-50's/hr for last several hours. For patient, ideal urine output 50 ml/hr ( 0.5mg/kg/hr). Given decreased DTR's in lower extremities and decreased urine output, will check Mg level. - Will cont to monitor with q4h mag checks; consider Mg level at next check - Will advance to clear liquid diet A2GDM - FBG 105 this AM - Patient will need 2h GTT 6 wks PP Dispo: Continue Mg for 24 hours post delivery. Transfer to floor once Mg turned off if BP's stable. Addendum - Attending - Attending Attestation Date/Time: 01/09/20 8446 I personally evaluated the patient and discussed the management with Dr. Myers. I agree with the History, Examination, Assessment and Plan documented above with any addition or exceptions noted below.
[2020-01-09] MEDS: Docusate Calcium (SURFAK) 240 MG CAP PO SCH (09:12)
[2020-01-09] MEDS: Labetalol 100 MG TAB PO SCH ×2 (09:12→21:10)
[2020-01-09] MEDS: Prenatal Vitamin 1 TAB PO SCH (09:13)
[2020-01-09] MEDS: HYDROcodone/Acetaminophen 5/325 mg Tablet PO PRN ×2 (11:12→15:44)
[2020-01-09 12:18] LABS: SARS-CoV-2 MS2 Positive; SARS-CoV-2 N Gene Negative; SARS-CoV-2 S Gene Negative; SARS-CoV-2 orf1ab Negative
--- NOTE | 2020-01-09 13:21 | PDOC.BPN ---
- Brief Progress Note Mg Check 1320 on 01/09/2020 S: Resting in bed with present, admittedly uncomfortable due to ongoing Mg infusions. Patient denied RUQ pain, chest pain and SOB, but initially admitted to HAs and visual disturbances. After much questioning, the patient stated that HAs and visual disturbances actually occurred the day prior, and that she only felt hot and uncomfortable since last evaluation. O: BP 118/66, 107/62, 118/69 - No severe-range pressures General: Uncomfortable and hot, NAD Resp: CTAB Cards: RRR no murmurs ABD: Mild incisional pain, no erythema or lucie drainage Ext: No edema, reflexes +2 BL patellar and brachioradialus, no clonus : Summers with UOP >100 ml/hr A/P: 29 year old at 34.6 wks by LMP/12.2 wk sono s/p pLTCS @1419 on 01/07 for cHTN with superimposed pre-E with severe features and breech presentation. #S/p pLTCS - Doing well although mildly uncomfortable, pain adequately controlled, minimal lochia - Continue routine care #Chronic hypertension affecting with superimposed pre-E severe features - Symptoms cont to resolve post delivery - BPs WNL since delivery, cont to monitor - on Mag 24 hours post delivery, started 1430 on 01/07 - will d/c at 1430 - reflexes +2 throughout, adequate UOP - Will plan to d/c Mg Protocol and transfer to [facility] #A2GDM - On metformin 1000 mg BID - post delivery Dispo: Cont routine post care, d/c Mg Protocol as per above - plan for transfer to [facility] Wmag checks later today, cont summers and monitor BPs.
[2020-01-09] MEDS: Simethicone Chewable 80 MG TAB PO PRN (21:11)
[2020-01-10] MEDS: Simethicone Chewable 80 MG TAB PO PRN ×2 (03:21→08:15)
[2020-01-10] MEDS: HYDROcodone/Acetaminophen 5/325 mg Tablet PO PRN ×4 (03:21→16:31)
[2020-01-10] MEDS: Ibuprofen 800 MG TAB PO SCH ×3 (05:24→21:26)
[2020-01-10 05:39] LABS: Hemoglobin 10.5 g/dL (12.0-16.0); Mean Corpuscular HGB CONC 32.8 g/dL (32.0-36.0); Mean Corpuscular Volume 88.6 fL (78.0-98.0); Mean Platelet Volume 7.9 fL (7.4-10.4); Platelet Count 268 thou/uL (130-400); RBC Distribution Width 12.1 % (11.5-14.5); White Blood Cell (WBC) Count 11.8 thou/uL (4.8-10.8)
[2020-01-10 05:58] LABS: ALT (SGPT) 25 U/L (8-55); AST (SGOT) 32 U/L (5-34); Alkaline Phosphatase 96 U/L (40-110); Anion Gap 12 mmol/L (10-20); BUN (Urea Nitrogen) 11 mg/dL (7.0-18.7); Bilirubin, Total 0.2 mg/dL (0.2-1.2); Calc. Creatinine Clearance 215 mL/min (70-130); Calcium 8.1 mg/dL (7.8-10.44); Carbon Dioxide 22 mmol/L (22-29); Chloride 107 mmol/L (98-107); Estimated GFR-MDRD Greater than 90; Globulin 2.8 g/dL (2.4-3.5); Glucose 103 mg/dL (70-105); Potassium 4.2 mmol/L (3.5-5.1); Protein, Total 5.8 g/dL (6.0-8.3); Sodium 137 mmol/L (136-145)
--- NOTE | 2020-01-10 06:29 | PDOC.PP ---
Post Progress Note Post Day #: 2 Subjective: Having pain, especially when ambulating. Has [place] 1 and 2 tabs, took 2 tabs this AM. Otherwise, eating/drinking, no HAs. PO intake tolerated: yes Flatus: yes Ambulation: yes (minimal) Vital Signs (12 hours) Temp Pulse Resp BP Pulse Ox 01/10/20 03:20 99.3 F 82 16 116/64 01/10/20 00:00 98.9 F 80 16 105/57 L 01/09/20 21:10 69 01/09/20 21:00 83 117/67 01/09/20 20:05 98.0 F 83 16 99/57 L 97 Weight Weight 101.605 kg - Physical Examination General: NAD Cardiovascular: no m/r/g, RRR Respiratory: clear to auscultation bilaterally, non-labored breathing Abdominal: + bowel sounds, no distention, appropriately TTP Fundus firm & at: 2 cm below umbilicus Skin: no rash (wound vac in place.) Neurological: no gross focal deficits Psychiatric: A&Ox3, normal affect Result Diagrams: 01/10/20 05:23 01/10/20 05:23 Additional Labs: Post Labs Blood Type B POSITIVE 01/08/20 13:25 Hep Bs Antigen Non-Reactive S/CO (NonReactive) 01/08/20 13:25 (1) delivery delivered Code(s): O82 - ENCOUNTER FOR DELIVERY WITHOUT INDICATION Status: Acute (2) Pre-eclampsia, severe Code(s): O14.10 - SEVERE PRE-ECLAMPSIA, UNSPECIFIED TRIMESTER Status: Acute (3) S/P primary low transverse Code(s): Z98.891 - HISTORY OF UTERINE SCAR FROM PREVIOUS SURGERY Status: Acute - Assessment/Plan 29 year old at 34.6 wks by LMP/12.2 wk sono s/p pLTCS @1419 on 01/07 for cHTN with superimposed pre-E with severe features and transverse presentation. s/p pLTCS for cHTN w/ superimposed pre-E severe features and transverse presentation - Meeting PP milestones - continue encouraging ambulation - wound fac in place Chronic hypertension affecting with superimposed pre-E severe features - Symptoms are resolving post delivery - received magnesium 24 hr s/p delivery - BP improved, hold labetalol A2GDM - d/c metformin - Patient will need 2h GTT 6 wks PP Dispo: continue postop cares, regular diet, consider d/c today or tomorrow. Addendum - Attending - Attending Attestation Date/Time: 01/10/20 5388 I personally evaluated the patient and discussed the management with Dr. Crews. I agree with the History, Examination, Assessment and Plan documented above with any addition or exceptions noted below. monitor BP today. continue pain control. d/c tomorrow
[2020-01-10] MEDS: Prenatal Vitamin 1 TAB PO SCH (08:15)
[2020-01-10] MEDS ORDERED: Polyethylene Glycol 3350 17 GM Packet PO SCH (15:45)
[2020-01-10] MEDS: Acetaminophen 325 MG TAB PO PRN (15:51)
--- NOTE | 2020-01-10 15:58 | PDOC.BPN ---
- Brief Progress Note Paged by RN for patient screaming 2/2 pain. Went to eval pt. Passing flatus, received norco at 12:15. Scheduled motrin. VSS. Labs stable this AM. Abd exam: normal BS, soft, tender superficially over LLQ, wound vac in place, no erythema/fluctuance present, no peritoneal signs Ordered Miralax daily, scheduled colace, instructed nurse to give additional dose of tylenol, and ordered ice pack for thes superficial pain. If pain is worsening, will re-evaluate and consider removing wound vac.
--- NOTE | 2020-01-10 17:00 | EKG ---
Test Reason : Blood Pressure : / mmHG Vent. Rate : 078 BPM Atrial Rate : 078 BPM P-R Int : 156 ms QRS Dur : 082 ms QT Int : 396 ms P-R-T Axes : 002 021 004 degrees QTc Int : 451 ms Normal sinus rhythm Nonspecific T wave abnormality Abnormal ECG Confirmed by ANDRES DONIS ([id number]) on 01/10/2020 5:00:15 PM Referred By: BIBIANA Confirmed By:ANDRES DONIS
[2020-01-10] MEDS: Docusate 100 MG CAP PO SCH (21:26)
[2020-01-11] MEDS: HYDROcodone/Acetaminophen 5/325 mg Tablet PO PRN ×2 (04:47→11:11)
[2020-01-11] MEDS: Ibuprofen 800 MG TAB PO SCH (04:47)
[2020-01-11 05:52] LABS: Hemoglobin 10.7 g/dL (12.0-16.0); Mean Corpuscular HGB CONC 33.9 g/dL (32.0-36.0); Mean Corpuscular Volume 88.8 fL (78.0-98.0); Platelet Count 253 thou/uL (130-400); Red Blood Cell (RBC) Count 3.54 mill/uL (4.20-5.40); White Blood Cell (WBC) Count 10.3 thou/uL (4.8-10.8)
[2020-01-11 06:11] LABS: ALT (SGPT) 35 U/L (8-55); AST (SGOT) 50 U/L (5-34); Albumin 3.1 g/dL (3.5-5.0); Alkaline Phosphatase 102 U/L (40-110); Anion Gap 11 mmol/L (10-20); BUN (Urea Nitrogen) 7 mg/dL (7.0-18.7); Bilirubin, Total 0.2 mg/dL (0.2-1.2); Calc. Creatinine Clearance 234 mL/min (70-130); Calcium 8.3 mg/dL (7.8-10.44); Carbon Dioxide 26 mmol/L (22-29); Chloride 105 mmol/L (98-107); Estimated GFR-MDRD Greater than 90; Globulin 2.8 g/dL (2.4-3.5); Glucose 96 mg/dL (70-105); Potassium 3.8 mmol/L (3.5-5.1); Protein, Total 5.9 g/dL (6.0-8.3); Sodium 138 mmol/L (136-145)
--- NOTE | 2020-01-11 06:40 | PDOC.OBPPN ---
FMR OB PN: Obj - Maternal Vital signs: BP: [] HR: [] RR: [] Tmax: [] Pox: []% on [] Wt: [] - Urine output I&O: 01/09/20 01/10/20 01/11/20 06:59 06:59 06:59 Intake Total 1200 Output Total 444 Balance -444 1200 FMR OB PN: Data - Labs Lab results: Laboratory Results - last 24 hr 01/11/20 01/11/20 05:32 05:32 WBC 10.3 RBC 3.54 L Hgb 10.7 L Hct 31.5 L MCV 88.8 MCH 30.0 MCHC 33.9 RDW 12.0 Plt Count 253 MPV 8.0 Sodium 138 Potassium 3.8 Chloride 105 Carbon Dioxide 26 Anion Gap 11 BUN 7 Creatinine 0.57 L Estimated GFR (MDRD) Greater than 90 Glucose 96 Calcium 8.3 Total Bilirubin 0.2 AST 50 H ALT 35 Alkaline Phosphatase 102 Serum Total Protein 5.9 L Albumin 3.1 L Globulin 2.8 Albumin/Globulin Ratio 1.1 L FMR OB PN: A/P - Problem List (1) delivery delivered Current Visit: Yes Status: Acute Code(s): O82 - ENCOUNTER FOR DELIVERY WITHOUT INDICATION (2) Pre-eclampsia, severe Current Visit: Yes Status: Acute Code(s): O14.10 - SEVERE PRE-ECLAMPSIA, UNSPECIFIED TRIMESTER (3) S/P primary low transverse Current Visit: Yes Status: Acute Code(s): Z98.891 - HISTORY OF UTERINE SCAR FROM PREVIOUS SURGERY Discussion: Date/Time: 01/11/20 0640 This H&P was discussed with [] and [] who agree with the above documentation and plan.
--- NOTE | 2020-01-11 06:42 | PDOC.PP ---
Post Progress Note Post Day #: 3 Subjective: Pt continues to take [place] regularly, has intermittent LLQ pain. No BM. + Flatus. Started bowel regimen in light of [place] usage and postop status. Reports breasts very sore/hard. Pumping but not expressing anything. PO intake tolerated: yes Flatus: yes Ambulation: yes Vital Signs (12 hours) Temp Pulse Resp BP Pulse Ox 01/10/20 20:00 98.7 F 77 18 135/77 97 Weight Weight 101.605 kg - Physical Examination General: NAD (breasts very TTP, hard and engorged. No evidence of mastitis.) Cardiovascular: no m/r/g, RRR Respiratory: clear to auscultation bilaterally Abdominal: + bowel sounds, appropriately TTP Fundus firm & at: below umbilicus Skin: no rash (wound vac in place.) Neurological: no gross focal deficits Psychiatric: A&Ox3 Result Diagrams: 01/11/20 05:32 01/11/20 05:32 Additional Labs: Post Labs Blood Type B POSITIVE 01/08/20 13:25 Hep Bs Antigen Non-Reactive S/CO (NonReactive) 01/08/20 13:25 (1) delivery delivered Code(s): O82 - ENCOUNTER FOR DELIVERY WITHOUT INDICATION Status: Acute (2) Pre-eclampsia, severe Code(s): O14.10 - SEVERE PRE-ECLAMPSIA, UNSPECIFIED TRIMESTER Status: Acute (3) S/P primary low transverse Code(s): Z98.891 - HISTORY OF UTERINE SCAR FROM PREVIOUS SURGERY Status: Acute - Assessment/Plan 29 year old at 34.6 wks by LMP/12.2 wk sono s/p pLTCS @1419 on 01/07 for cHTN with superimposed pre-E with severe features and transverse presentation. s/p pLTCS for cHTN w/ superimposed pre-E severe features and transverse presentation - continue encouraging ambulation - wound vac in place - likely will need [place] on d/c Chronic hypertension affecting with superimposed pre-E severe features - Symptoms resolving after delivery. - recommend BP check later this week after d/c A2GDM - d/c metformin - Patient will need 2h GTT 6 wks PP B/l Breast Pain - For breast pain, recommend continued consult. Pump 5 min each breast q4h. Once infant off oxygen in NICU, may attempt latching to help express milk. Monitor for infectious signs/symptoms. Dispo: continue postop cares, regular diet, likely d/c today. Addendum - Attending - Attending Attestation Date/Time: 01/11/20 8664 I personally evaluated the patient and discussed the management with Dr. Crews I agree with the History, Examination, Assessment and Plan documented above with any addition or exceptions noted below. STRIP DEBURRER reviewed. Can d/c home with norco, ibuprofen, and bowel regimen. discussed s /s of pre-e. f/u [facility] later this week for staple removal and BP check.
[2020-01-11] MEDS ORDERED: Polyethylene Glycol 3350 17 GM Packet PO SCH (09:00)
[2020-01-11] MEDS: Docusate 100 MG CAP PO SCH (09:30)
[2020-01-11] MEDS: Prenatal Vitamin 1 TAB PO SCH (09:30)
[2020-01-11 09:34] VITALS: BP 118/77; TEMP 98.9
== END 2020-01-11 12:40 | disposition home or self-care (01) | DRG 787 ==
LOC: L&D/OP 19:02 → L&D 01-08 00:09 → 3SW 01-09 17:45
PROVIDERS: ADMIT Emergency Medicine; ATTEND Emergency Medicine
PROC: 10D00Z1 Extraction of Products of Conception, Low, Open Approach (ICD-10-PCS; principal; 2020-01-08)
DX: O14.14 Severe pre-eclampsia complicating childbirth (principal); O99.354 Diseases of the nervous system complicating childbirth; Z20.828 Contact with and (suspected) exposure to other viral communicable diseases; Z11.59 Encounter for screening for other viral diseases; O24.420 Gestational diabetes mellitus in childbirth, diet controlled; G43.909 Migraine, unspecified, not intractable, without status migrainosus; O32.1XX0 Maternal care for breech presentation, not applicable or unspecified; Z3A.34 34 weeks gestation of pregnancy; Z37.0 Single live birth
CPT/HCPCS: 36415; 36416; 51702; 76815; 76819; 80053; 80306; 82570; 82805; 83735; 84156; 84550; 85025; 85027; 86780; 86850; 86900; 86901; 87340; 87635; 88307; 93005; 93010; 99285; J0360; J0690; J0702; J1200; J1885; J2175; J2250; J2274; J2405; J2590; J2765; J3010; J3475; U0003

== ENCOUNTER 2020-01-21 14:19 | Emergency (ER) | payer MEDICAID ==
[~2020-01-21 14:19] MED LIST: Iopamidol-370 76% 500 ML 1 ML ONE
[2020-01-21] MEDS ORDERED: Morphine 4 MG/ML VIAL ONE (15:19)
[2020-01-21] MEDS ORDERED: Ketorolac Tromethamine 30 MG/ML VIAL ONE (15:19)
--- NOTE | 2020-01-21 15:22 | RAD ---
EXAM: Single view of the chest HISTORY: Upper back pain and chest pain COMPARISON: 10/06/2019 FINDINGS: Single view of the chest shows a normal sized cardiomediastinal silhouette. There is no tony dence of consolidation, mass, or pleural effusion. The bones are unremarkable. IMPRESSION: No evidence of acute cardiopulmonary disease
[2020-01-21 15:27] LABS: #Lymphocytes 1.7 thou/uL (1.20-3.40); #Monocytes 0.4 thou/uL (0.11-0.59); %Basophils 0.8 % (0.0-1.0); %Eosinophils 0.7 % (0.0-10.0); %Lymphocytes 27.2 % (21.0-51.0); %Monocytes 6.1 % (0.0-10.0); %Neutrophils 65.2 % (42.0-75.0); Hemoglobin 13.6 g/dL (12.0-16.0); Mean Corpuscular HGB CONC 33.4 g/dL (32.0-36.0); Mean Corpuscular Hemoglobin 29.4 pg (27.0-31.0); Mean Platelet Volume 7.3 fL (7.4-10.4); Platelet Count 361 thou/uL (130-400); RBC Distribution Width 11.9 % (11.5-14.5); Red Blood Cell (RBC) Count 4.62 mill/uL (4.20-5.40); White Blood Cell (WBC) Count 6.1 thou/uL (4.8-10.8)
[2020-01-21 15:33] LABS: PTT 29.7 sec (22.9-36.1)
[2020-01-21 15:49] LABS: ALT (SGPT) 197 U/L (8-55); AST (SGOT) 163 U/L (5-34); Albumin 4.3 g/dL (3.5-5.0); Alkaline Phosphatase 125 U/L (40-110); Anion Gap 12 mmol/L (10-20); BUN (Urea Nitrogen) 10 mg/dL (7.0-18.7); Bilirubin, Total 0.2 mg/dL (0.2-1.2); Calc. Creatinine Clearance 0 mL/min (70-130); Calcium 9.4 mg/dL (7.8-10.44); Carbon Dioxide 30 mmol/L (22-29); Chloride 102 mmol/L (98-107); Estimated GFR-MDRD Greater than 90; Globulin 3.4 g/dL (2.4-3.5); Glucose 71 mg/dL (70-105); Lipase 74 U/L (8-78); Potassium 4.1 mmol/L (3.5-5.1); Protein, Total 7.7 g/dL (6.0-8.3); Sodium 140 mmol/L (136-145)
--- NOTE | 2020-01-21 16:25 | CT ---
Exam: CT angiogram of the chest HISTORY: Surgery 2 weeks ago. Sharp chest pain and dyspnea. COMPARISON: None TECHNIQUE: CT angiogram of the chest is performed in the axial plane. Three-dimensional reformatted i mages are submitted for interpretation FINDINGS: Mediastinum: No mass, lymphadenopathy or hematoma. HEART: Normal size. No significant pericardial fluid. Aorta: No aneurysm or dissection Upper solid abdominal viscera: No abnormality enhancement. Trachea and central bronchi: Patent Pleural spaces: No effusion Lung parenchyma: Patchy groundglass opacities in the right upper lobe, and right lower lobe. Groundgl ass nodule in the right lower lobe measures 0.5 x 0.4 cm. Additional groundglass nodules in the right upper lobe measures 0.6 x 0.6 cm. Pneumothorax: None Osseous structures: No lytic or blastic lesions Pulmonary arteries: Adequate contrast opacification pulmonary arterial system to the level of segment al arteries. No filling defect to suggest pulmonary embolism IMPRESSION: 1. No evidence of pulmonary artery embolism to the level of segmental arteries. 2. Nonspecific groundglass opacities and groundglass nodules in the right lung. Findings may be due t o a a typical infectious process. Continued surveillance is recommended
== END 2020-01-21 18:28 | disposition home or self-care (01) ==
LOC: ERS 14:19
DX: R06.00 Dyspnea, unspecified (principal); I10 Essential (primary) hypertension
CPT/HCPCS: 36415; 71045; 71275; 80053; 83690; 85025; 85610; 85730; 93005; 96361; 96374; 96375; J1885; J2270; Q9967

== ENCOUNTER 2020-06-22 16:04 | Emergency (ER) | payer MEDICAID, SELFPAY ==
[2020-06-22] MEDS ORDERED: Ondansetron PF 4 MG/2 ML Vial ONE (16:34)
[2020-06-22] MEDS ORDERED: Morphine 4 MG/ML VIAL ONE (16:34)
[2020-06-22 16:35] LABS: #Basophils 0.1 thou/uL (0.0-0.2); #Eosinphils 0.2 thou/uL (0.0-0.7); #Lymphocytes 3.3 thou/uL (1.20-3.40); #Monocytes 0.6 thou/uL (0.11-0.59); #Neutrophils 6.6 thou/uL (1.40-6.50); %Basophils 1.1 % (0.0-1.0); %Eosinophils 1.5 % (0.0-10.0); %Lymphocytes 30.3 % (21.0-51.0); %Monocytes 5.9 % (0.0-10.0); %Neutrophils 61.2 % (42.0-75.0); Hemoglobin 14.1 g/dL (12.0-16.0); Mean Corpuscular HGB CONC 33.8 g/dL (32.0-36.0); Mean Corpuscular Hemoglobin 29.8 pg (27.0-31.0); Mean Corpuscular Volume 88.2 fL (78.0-98.0); Mean Platelet Volume 7.3 fL (7.4-10.4); Platelet Count 269 thou/uL (130-400); RBC Distribution Width 13.1 % (11.5-14.5); Red Blood Cell (RBC) Count 4.72 mill/uL (4.20-5.40); White Blood Cell (WBC) Count 10.8 thou/uL (4.8-10.8)
[2020-06-22 16:40] LABS: Pregnancy Test - Urine (BHCG) POSITIVE (Negative); Pregu Control Background? CLEAR/WHITE (CLR/WHITE); Pregu Control Bar Appear? YES (CONTROL BAR)
[2020-06-22 16:44] LABS: Bacteria/HPF 3+ HPF (None Seen); Bilirubin Negative (Negative); Blood, Urine Negative (Negative); Clarity Turbid (Clear); Glucose, Urine (Dipstick) Normal (Negative); Ketone, Urine Negative (Negative); Leukocyte 500 Leu/uL (Negative); Nitrite Negative (Negative); Protein, Urine (Dipstick) 20 mg/dL (Neg-Trace); RBC/HPF 0-3 HPF (0-3); Specific Gravity 1.019 (1.002-1.036); Specific Gravity, Urine 1.019 (1.002-1.036); Urobilinogen Normal mg/dL (Less than 2); pH, Urine 7.5 (5.0-9.0)
[2020-06-22 17:01] LABS: ALT (SGPT) 78 U/L (8-55); AST (SGOT) 55 U/L (5-34); Albumin 4.3 g/dL (3.5-5.0); Alkaline Phosphatase 86 U/L (40-110); Anion Gap 12 mmol/L (10-20); BUN (Urea Nitrogen) 5 mg/dL (7.0-18.7); Bilirubin, Total 0.5 mg/dL (0.2-1.2); Calc. Creatinine Clearance 0 mL/min (70-130); Calcium 8.7 mg/dL (7.8-10.44); Carbon Dioxide 25 mmol/L (22-29); Chloride 104 mmol/L (98-107); Estimated GFR-MDRD Greater than 90; Globulin 3.4 g/dL (2.4-3.5); Glucose 79 mg/dL (70-105); Lipase 56 U/L (8-78); Potassium 3.4 mmol/L (3.5-5.1); Protein, Total 7.7 g/dL (6.0-8.3); Sodium 138 mmol/L (136-145)
--- NOTE | 2020-06-22 17:28 | ULT ---
TRANSABDOMINAL AND TRANSVAGINAL PELVIC ULTRASOUND WITH DOPPLER: Date: 06/22/2020 PROVIDED CLINICAL HISTORY: Abdominal pain. FINDINGS: There is a single, live intrauterine gestation documented, with heart rate of 157 beats/minute. Estim ated gestational age based on crown-rump length is 7 weeks and 3 days. There is no evidence for perig estational hemorrhage. The right and left ovaries appear sonographically normal. Color Doppler and sp ectral analysis of the ovarian waveforms demonstrates normal flow bilaterally. IMPRESSION: Single, live intrauterine gestation, 7 weeks and 3 days by ultrasound. POS: KAYLENE
[2020-06-22] MEDS ORDERED: cefTRIAXone\\ROCEPHIN 1 GM VIAL ONE (17:45)
== END 2020-06-22 18:01 | disposition home or self-care (01) ==
LOC: ERS 16:04
DX: O23.41 Unspecified infection of urinary tract in pregnancy, first trimester (principal); O16.1 Unspecified maternal hypertension, first trimester; Z3A.01 Less than 8 weeks gestation of pregnancy
CPT/HCPCS: 36415; 76856; 80053; 81003; 81015; 81025; 83690; 84702; 85025; 93976; 96365; 96375; J0696; J2270; J2405

== ENCOUNTER 2021-03-09 22:33 | Emergency (ER) | payer MEDICAID, SELFPAY ==
[2021-03-09] MEDS ORDERED: Ketorolac Tromethamine 30 MG/ML VIAL ONE (23:47)
== END 2021-03-10 | disposition home or self-care (01) ==
LOC: ERS 22:33
DX: K02.9 Dental caries, unspecified (principal); I10 Essential (primary) hypertension
CPT/HCPCS: 96372; 99281; J1885

== ENCOUNTER 2022-08-17 07:13 | Emergency (ER) | payer MEDICAID, SELFPAY ==
[2022-08-17 08:14] LABS: BHCG - Serum Negative (NEGATIVE); Pregs Control Background? CLEAR/WHITE (CLR/WHITE); Pregs Control Bar Appear? YES (CONTROL BAR)
[2022-08-17] MEDS ORDERED: Acetaminophen 500 MG TAB ONE (08:20)
[2022-08-17 08:23] LABS: Bilirubin Negative (Negative); Blood, Urine Negative (Negative); Clarity Turbid (Clear); Glucose, Urine (Dipstick) Normal (Negative); Ketone, Urine Negative (Negative); Leukocyte 250 Leu/uL (Negative); Nitrite Negative (Negative); Protein, Urine (Dipstick) 20 mg/dL (Neg-Trace); RBC/HPF 0-3 HPF (0-3); Specific Gravity, Urine 1.026 (1.002-1.036)
[2022-08-17 08:27] LABS: ALT (SGPT) 49 U/L (8-55); AST (SGOT) 40 U/L (5-34); Albumin 4.2 g/dL (3.5-5.0); Alkaline Phosphatase 92 U/L (40-110); Anion Gap 13 mmol/L (10-20); BUN (Urea Nitrogen) 11 mg/dL (7.0-18.7); Bilirubin, Total 0.4 mg/dL (0.2-1.2); Calc. Creatinine Clearance 0 mL/min (70-130); Carbon Dioxide 24 mmol/L (22-29); Chloride 104 mmol/L (98-107); Estimated GFR 119; Globulin 3.7 g/dL (2.4-3.5); Glucose 127 mg/dL (70-105); Lipase 56 U/L (8-78); Potassium 3.6 mmol/L (3.5-5.1); Protein, Total 7.9 g/dL (6.0-8.3); Sodium 137 mmol/L (136-145)
[2022-08-17 08:27] LABS: Bacteria/HPF 1+ HPF (None Seen); WBC/HPF 21-50 HPF (0-3)
[2022-08-17 08:46] LABS: #Basophils 0.1 thou/uL (0.0-0.2); #Eosinphils 0.2 thou/uL (0.0-0.7); #Lymphocytes 4.2 thou/uL (1.20-3.40); #Monocytes 0.7 thou/uL (0.11-0.59); #Neutrophils 6.6 thou/uL (1.40-6.50); %Basophils 0.4 % (0.0-1.0); %Eosinophils 1.7 % (0.0-10.0); %Lymphocytes 35.7 % (21.0-51.0); %Monocytes 6.2 % (0.0-10.0); Hemoglobin 8.5 g/dL (12.0-16.0); Mean Corpuscular HGB CONC 31.1 g/dL (32.0-36.0); Mean Corpuscular Hemoglobin 19.1 pg (27.0-31.0); Mean Corpuscular Volume 61.4 fl (78.0-98.0); Platelet Count 317 10x3/uL (130-400); RBC Distribution Width 17.1 % (11.5-14.5); Red Blood Cell (RBC) Count 4.44 mill/uL (4.20-5.40); Reflex for Review?? YES; White Blood Cell (WBC) Count 11.7 10x3/uL (4.8-10.8)
[2022-08-17 08:47] LABS: Anisocytosis MODERATE=16-30 cells (100X) (0-5/hpf); Hypochromia SLIGHT = 6-15 cells (100X) (0-5/hpf); MDiff Complete? YES; Microcytosis MODERATE=15-30 cells (100X) (0-5/hpf); Platelet Morphology Comment Appears Adequate; Polychromasia SLIGHT = 2-3 cells (100X) (0-2/hpf)
[2022-08-17] MEDS ORDERED: cefTRIAXone\\ROCEPHIN 2 GM VIAL ONE (09:04)
[2022-08-17] MEDS ORDERED: Ketorolac Tromethamine 30 MG/ML VIAL ONE (10:16)
== END 2022-08-17 10:25 | disposition home or self-care (01) ==
LOC: ERS 07:13
DX: N10 Acute pyelonephritis (principal); D72.829 Elevated white blood cell count, unspecified; I10 Essential (primary) hypertension
CPT/HCPCS: 36415; 74176; 80053; 81003; 81015; 83690; 84703; 85025; 85060; 87077; 87086; 87186; 96361; 96365; 96375; J0696; J1885

== ENCOUNTER 2024-06-12 20:52 | Emergency (ER) | payer SELFPAY ==
[2024-06-12] MEDS ORDERED: Ketorolac Tromethamine 30 MG (1 mL) VIAL ONE (21:13)
== END 2024-06-12 21:45 | disposition home or self-care (01) ==
LOC: ERS 20:52
DX: M54.42 Lumbago with sciatica, left side (principal); I10 Essential (primary) hypertension
CPT/HCPCS: 96372; 99283; J1885

== ENCOUNTER 2024-08-28 17:22 | Emergency (ER) | payer SELFPAY ==
[2024-08-28 19:00] LABS: Pregnancy Test - Urine (BHCG) Negative (Negative); Pregu Control Background? CLEAR/WHITE (CLR/WHITE); Pregu Control Bar Appear? YES (CONTROL BAR)
[2024-08-28] MEDS ORDERED: Morphine 4 MG/ML VIAL ONE (19:00)
[2024-08-28 19:01] LABS: Clarity Turbid (Clear); Leukocyte 500 Leu/uL (Negative); Nitrite Negative (Negative); Protein, Urine (Dipstick) Negative (Neg-Trace)
[2024-08-28] MEDS ORDERED: Sodium Chloride 0.9% 100 ML ONE (19:01)
[2024-08-28] MEDS ORDERED: cefTRIAXone (ROCEPHIN) 1 GM VIAL ONE (19:01)
[2024-08-28] MEDS ORDERED: Ondansetron PF 4 MG/2 ML Vial ONE (19:01)
[2024-08-28 19:02] LABS: Bilirubin Negative (Negative); Blood, Urine Negative (Negative); Glucose, Urine (Dipstick) Negative (Negative); Ketone, Urine Negative (Negative); RBC/HPF 0-3 HPF (0-3)
[2024-08-28 19:03] LABS: Bacteria/HPF 4+ HPF (None Seen); CAUTI Indications for Culture Pelvic or flank pain; WBC/HPF 21-50 HPF (0-3)
[2024-08-28 19:04] LABS: Urine Culture Reflex Yes Yes
[2024-08-28 19:25] LABS: ALT (SGPT) 27 U/L (Less than 34); AST (SGOT) 43 U/L (11-34); Alkaline Phosphatase 89 U/L (40-110); Anion Gap 11 mmol/L (10-20); BUN (Urea Nitrogen) 12 mg/dL (7.0-18.7); Bilirubin, Total 0.6 mg/dL (0.3-1.2); Calc. Creatinine Clearance 0 mL/min (70-130); Calcium 8.7 mg/dL (7.8-10.44); Carbon Dioxide 24 mmol/L (22-29); Chloride 106 mmol/L (98-107); Estimated GFR 123; Globulin 4.2 g/dL (2.4-3.5); Glucose 122 mg/dL (70-105); Lipase 34 U/L (8-78); Potassium 3.4 mmol/L (3.5-5.1); Protein, Total 8.2 g/dL (6.0-8.3); Sodium 138 mmol/L (136-145)
[2024-08-28 19:44] LABS: #Basophils 0.04 10x3/uL (0.0-0.2); %Basophils 0.4 % (0.0-1.0); %Eosinophils 1.7 % (0.0-10.0); %Lymphocytes 27.9 % (21.0-51.0); %Monocytes 6.1 % (0.0-10.0); %Neutrophils 63.7 % (42.0-75.0); Hematocrit 28.4 % (36.0-47.0); Mean Corpuscular HGB CONC 28.2 g/dL (32.0-36.0); Mean Corpuscular Hemoglobin 16.8 pg (27.0-31.0); Mean Corpuscular Volume 59.8 fL (78.0-98.0); Mean Platelet Volume 9.4 fL (7.4-10.4); Platelet Count 353 10x3/uL (130-400); RBC Distribution Width 20.3 % (11.5-14.5); Red Blood Cell (RBC) Count 4.75 mill/uL (4.20-5.40)
== END 2024-08-28 20:51 | disposition home or self-care (01) ==
LOC: ERS 17:22
DX: N10 Acute pyelonephritis (principal); D50.9 Iron deficiency anemia, unspecified; I10 Essential (primary) hypertension
CPT/HCPCS: 80053; 81001; 81025; 83605; 83690; 85025; 87040; 87077; 87086; 87186; 96374; 96375; J0696; J2270; J2405

== ENCOUNTER 2025-05-08 07:44 | Inpatient (IN) | payer SELFPAY ==
[2025-05-08 08:53] LABS: #Basophils 0.05 10x3/uL (0.0-0.2); #Eosinophils 0.11 10x3/uL (0.0-0.7); #Monocytes 0.78 10x3/uL (0.11-0.59); #Neutrophils 17.92 10x3/uL (1.40-6.50); %Basophils 0.2 % (0.0-1.0); %Eosinophils 0.5 % (0.0-10.0); %Lymphocytes 9.5 % (21.0-51.0); %Monocytes 3.7 % (0.0-10.0); %Neutrophils 85.7 % (42.0-75.0); Hematocrit 37.3 % (36.0-47.0); Hemoglobin 10.6 g/dL (12.0-16.0); Mean Corpuscular Hemoglobin 18.2 pg (27.0-31.0); Mean Corpuscular Volume 64.0 fL (78.0-98.0); Platelet Count 425 10x3/uL (130-400); Red Blood Cell (RBC) Count 5.83 mill/uL (4.20-5.40); White Blood Cell (WBC) Count 20.93 10x3/uL (4.8-10.8)
[2025-05-08 09:26] LABS: ALT (SGPT) 37 U/L (Less than 34); AST (SGOT) 51 U/L (11-34); Albumin 4.2 g/dL (3.1-4.5); Alkaline Phosphatase 103 U/L (40-110); Anion Gap 12 mmol/L (10-20); BUN (Urea Nitrogen) 9 mg/dL (7.0-18.7); Bilirubin, Total 0.6 mg/dL (0.3-1.2); Calc. Creatinine Clearance 0 mL/min (70-130); Calcium 8.7 mg/dL (7.8-10.44); Carbon Dioxide 23 mmol/L (22-29); Chloride 106 mmol/L (98-107); Globulin 4.3 g/dL (2.4-3.5); Glucose 154 mg/dL (70-105); Lipase 36 U/L (8-78); Potassium 3.6 mmol/L (3.5-5.1); Sodium 137 mmol/L (136-145)
[2025-05-08] MEDS ORDERED: Iopamidol-370 76% 500 ML MDV (1 ML CHARGE) ONE (09:29)
[2025-05-08] MEDS ORDERED: Ondansetron PF 4 MG/2 ML Vial ONE (09:51)
[2025-05-08 09:58] LABS: Bacteria/HPF 4+ HPF (None Seen); CAUTI Indications for Culture Pelvic or flank pain; Glucose, Urine (Dipstick) Normal (Negative); Leukocyte 75 Leu/uL (Negative); Protein, Urine (Dipstick) 20 mg/dL (Neg-Trace); RBC/HPF 21-50 HPF (0-3); Specific Gravity, Urine 1.028 (1.002-1.036)
[2025-05-08 09:59] LABS: Pregnancy Test - Urine (BHCG) Negative (Negative); Pregu Control Background? CLEAR/WHITE (CLR/WHITE); Pregu Control Bar Appear? YES (CONTROL BAR); Urine Culture Reflex No No
[2025-05-08] MEDS ORDERED: Melatonin 3 MG TAB PO PRN (12:24)
[2025-05-08] MEDS ORDERED: Calcium Carbonate 500 MG ChewTAB PO PRN (12:24)
[2025-05-08] MEDS ORDERED: Dextrose 50% Abboject 50 ML SYRINGE SLOW IVP PRN (12:29)
[2025-05-08] MEDS ORDERED: Glucagon 1 MG/ML KIT IM PRN (12:29)
[2025-05-08] MEDS ORDERED: cefTRIAXone (ROCEPHIN) 2 GM VIAL ONE (13:40)
[2025-05-08] MEDS ORDERED: Acetaminophen 325 MG TAB ONE (13:40)
[2025-05-08] MEDS: Acetaminophen 325 MG TAB PO SCH (13:48)
[2025-05-08] MEDS: cefTRIAXone\\ROCEPHIN 2 GM in Sodium Chloride 0.9% 100 ML IVPB SCH (13:50)
[2025-05-08] MEDS: Ketorolac Tromethamine 30 MG (1 mL) VIAL IVP PRN (19:47)
[2025-05-08] MEDS: Docusate Calcium (SURFAK) 240 MG CAP PO SCH (21:28)
[2025-05-09 06:24] LABS: #Basophils Less than 0.03 10x3/uL (0.0-0.2); #Eosinophils 0.23 10x3/uL (0.0-0.7); #Monocytes 0.47 10x3/uL (0.11-0.59); #Neutrophils 8.61 10x3/uL (1.40-6.50); %Basophils 0.2 % (0.0-1.0); %Eosinophils 1.9 % (0.0-10.0); %Lymphocytes 23.8 % (21.0-51.0); %Monocytes 3.8 % (0.0-10.0); %Neutrophils 70.1 % (42.0-75.0); Hematocrit 31.7 % (36.0-47.0); Hemoglobin 8.9 g/dL (12.0-16.0); Mean Corpuscular Hemoglobin 18.2 pg (27.0-31.0); Mean Corpuscular Volume 65.0 fL (78.0-98.0); Platelet Count 340 10x3/uL (130-400); Red Blood Cell (RBC) Count 4.88 mill/uL (4.20-5.40); White Blood Cell (WBC) Count 12.29 10x3/uL (4.8-10.8)
[2025-05-09 06:34] LABS: ALT (SGPT) 25 U/L (Less than 34); AST (SGOT) 21 U/L (11-34); Albumin 3.4 g/dL (3.1-4.5); Alkaline Phosphatase 80 U/L (40-110); Anion Gap 10 mmol/L (10-20); BUN (Urea Nitrogen) 8 mg/dL (7.0-18.7); Bilirubin, Total 0.4 mg/dL (0.3-1.2); Calc. Creatinine Clearance 198 mL/min (70-130); Calcium 8.3 mg/dL (7.8-10.44); Carbon Dioxide 24 mmol/L (22-29); Chloride 108 mmol/L (98-107); Globulin 3.6 g/dL (2.4-3.5); Glucose 156 mg/dL (70-105); Potassium 4.0 mmol/L (3.5-5.1); Sodium 138 mmol/L (136-145)
[2025-05-09] MEDS: Aspirin 81 mg Enteric Coated Tablet PO SCH (08:33)
[2025-05-09] MEDS: Enoxaparin 40 MG (0.4 mL) SYRINGE SC SCH (09:59)
[2025-05-09 12:52] LABS: Iron 11 ug/dL (50-170); Iron Binding Capacity, Total 408 mcg/dL (265-497)
[2025-05-09] MEDS: Sodium Ferric Gluconate 250 MG in Sodium Chloride 0.9% 250 ML 250 ML IVPB SCH (17:10)
[2025-05-10 05:42] LABS: Anion Gap 11 mmol/L (10-20); BUN (Urea Nitrogen) 7 mg/dL (7.0-18.7); Calc. Creatinine Clearance 0 mL/min (70-130); Calcium 8.2 mg/dL (7.8-10.44); Carbon Dioxide 27 mmol/L (22-29); Chloride 104 mmol/L (98-107); Glucose 148 mg/dL (70-105); Potassium 3.5 mmol/L (3.5-5.1); Sodium 138 mmol/L (136-145)
[2025-05-10 06:40] LABS: #Basophils 0.05 10x3/uL (0.0-0.2); #Eosinophils 0.32 10x3/uL (0.0-0.7); #Monocytes 0.59 10x3/uL (0.11-0.59); #Neutrophils 3.52 10x3/uL (1.40-6.50); %Basophils 0.6 % (0.0-1.0); %Eosinophils 4.1 % (0.0-10.0); %Lymphocytes 42.7 % (21.0-51.0); %Monocytes 7.5 % (0.0-10.0); %Neutrophils 45.0 % (42.0-75.0); Hematocrit 31.5 % (36.0-47.0); Hemoglobin 8.9 g/dL (12.0-16.0); Mean Corpuscular Hemoglobin 18.4 pg (27.0-31.0); Mean Corpuscular Volume 65.2 fL (78.0-98.0); Platelet Count 329 10x3/uL (130-400); Red Blood Cell (RBC) Count 4.83 mill/uL (4.20-5.40); White Blood Cell (WBC) Count 7.83 10x3/uL (4.8-10.8)
[2025-05-10] MEDS: metFORMIN 500 MG TAB PO SCH (11:03)
[2025-05-10] MEDS: Sodium Ferric Gluconate 250 MG in Sodium Chloride 0.9% 250 ML 250 ML IVPB SCH (14:08)
[2025-05-10 15:38] VITALS: TEMP 97.5
[2025-05-10 16:11] VITALS: BMI 36.8
[2025-05-10 16:12] VITALS: BP 138/78
[2025-05-10] MEDS ORDERED: metFORMIN 500 MG TAB PO SCH (17:00)
[2025-05-11] MEDS ORDERED: FLU (Fluarix Triv) 25-26 (6MOS UP)/PF 45 MCG/0.5 ML Syringe IM ONE (14:30)
== END 2025-05-10 17:15 | disposition home or self-care (01) | DRG 872 ==
LOC: ERS 07:44 → ERHOLD 11:39 → INTOOBSV 11:39 → SURG A 17:29 → OBSVTOIN 05-09 14:20
PROVIDERS: ADMIT Hospitalist; ATTEND Internal Medicine
DX: A41.51 Sepsis due to Escherichia coli [E. coli] (principal); N30.01 Acute cystitis with hematuria; Z98.891 History of uterine scar from previous surgery; Z68.35 Body mass index [BMI] 35.0-35.9, adult; D50.9 Iron deficiency anemia, unspecified; Z79.82 Long term (current) use of aspirin; E11.65 Type 2 diabetes mellitus with hyperglycemia; E66.9 Obesity, unspecified; Z79.84 Long term (current) use of oral hypoglycemic drugs
CPT/HCPCS: 36415; 36416; 74177; 80048; 80053; 81001; 81025; 82728; 83036; 83540; 83550; 83605; 83690; 85025; 87040; 96365; 96366; 96375; 96376; G0378; J0696; J1815; J1885; J2270; J2543; J2916; J7050; Q9967